=== PATIENT | male | born 1960 | race Caucasian/White ===

== ENCOUNTER 2020-03-27 13:04 | Emergency (ER) | payer BC, SELFPAY ==
--- NOTE | ~2020-03-27 | XR_ITS ---
EXAMINATION: XR finger 1st LT min 2V DATE: 03/27/2020 13:29 INDICATION: Left thumb crush injury. TECHNIQUE: 3 views of left thumb were obtained. COMPARISON: None. FINDINGS: There is an oblique fracture of tuft of first distal phalanx with 1 mm distraction. There i s mild osteoarthritis of first metacarpophalangeal joint and moderate osteoarthritis of first interph alangeal joint. IMPRESSION: 1. Oblique fracture of tuft of first distal phalanx. Reviewed, dictated and finalized at location A.
[2020-03-27 13:16] VITALS: BP 166/96; PULSE 82; RESP 17; TEMP 35.9; O2SAT 99
--- NOTE | 2020-03-27 13:38 | ED.GENADULT ---
HPI - General Adult General Chief complaint: Wound/Laceration Stated complaint: smashed finger Time Seen by Provider: 03/27/20 13:18 Source: patient Mode of arrival: ambulatory Limitations: no limitations History of Present Illness HPI narrative: Patient is a 60-year-old male who presents to emergency department for evaluation of crush injury of the left thumb that occurred just prior to arrival using a log splitter patient caught the distal phalanx sustaining laceration of the nail read as moderate aching pain worse with touch and activity patient denies other injuries or complaints patient is unsure as to tetanus status patient presents per private vehicle after the incident no distress has not had anything for his symptoms Related Data Allergies Allergy/AdvReac Type Severity Reaction Status Date / Time amlodipine Allergy Unknown Swelling Verified 02/21/19 16:00 metoclopramide Allergy Unknown Verified 02/21/19 16:00 Review of Systems Review of Systems: All systems reviewed & are unremarkable except as noted in HPI and below PMFSH Past Medical History Medical History Hammertoe of left foot Family History Family History Father Patient's father is Family history of cardiovascular disease Family history of lung cancer Family history of congestive heart failure Mother Patient's mother is Family history of malignant neoplasm of esophagus Sibling Patient's brother is Family history of malignant neoplasm of male breast Other Family history of alcoholism Hypertension No family history of malignant neoplasm Social History Social History Smoking status: Never smoker Smoking end date: 06/15/92 Alcohol intake: current Gender identity (if verbalized by the patient): Male Exam Narrative: Exam Narrative: GENERAL: Well-appearing, well-nourished, and in no acute distress. HEAD: Normocephalic, atraumatic. EYES: PERRLA and EOMI. ENT: Nares clear, no rhinorrhea or epistaxis. Mucous membranes moist. EXTREMITIES: Normal range of motion. No edema. SKIN: Warm, dry, no rash. Laceration across the mid left nailbed of the thumb with bruising NEURO: No focal deficits. Alert and oriented x3. Neurovascularly intact. Capillary refill less than 2 seconds PSYCH: Normal mood and affect. Course Course Emergency Course: Patient's wound was closed in the emergency department tetanus was up-to-date he was given a shot of antibiotic will be discharged with follow-up with plastic surgery Vital Signs Vital signs: Vital Signs Temperature 96.7 F L 03/27/20 13:16 Pulse Rate 82 03/27/20 13:16 Respiratory Rate 17 03/27/20 13:16 Blood Pressure 166/96 H 03/27/20 13:16 Pulse Oximetry 99 03/27/20 13:16 Temperature 96.7 F L 03/27/20 13:16 Pulse Rate 82 03/27/20 13:16 Respiratory Rate 17 03/27/20 13:16 Blood Pressure 166/96 H 03/27/20 13:16 Pulse Oximetry 99 03/27/20 13:16 Procedures Laceration Laceration 1: Date: 03/27/20 Time: 14:47 Site: upper extremity Side (If applicable): left Size (cm): 2 Description: irregular Depth: simple, single layer Local Anesthetic: lidocaine 1% Pre-repair: wound explored, irrigated and irrigated extensively ====== Skin Level ====== Skin layer closed with: nylon Size (cm): 4-0 Number of sutures: 4 Technique: simple, interrupted ====== Subcutaneous Layer ====== ====== Muscle Layer ====== ====== Tendon Layer ====== Dressing: Patient's wound was prepped with [employer]icare scrub 1% lidocaine used to make digital block patient's wound was explored and irrigated with pressure irrigation along with scrub. Patient had closure with 4-0 nylon the nailbed was repare
[2020-03-27] MEDS: LIDOCAINE HCL 1% LOCAL INJ 20 ML VIAL (14:01)
[2020-03-27] MEDS: TETANUS,DIPHTHERIA,AC PERTUSSIS ADULT (0.5 ML) BOOSTRIX IM (14:02)
[2020-03-27] MEDS: ceFAZolin SODIUM 1 GM VIAL IM (14:02)
[2020-03-27 15:10] VITALS: BP 117/59; PULSE 75; RESP 16; O2SAT 100
== END 2020-03-27 15:10 | disposition home or self-care (01) ==
PROVIDERS: Emergency Provider Emergency Medicine; PCP Family Medicine
DX: S62.522B Displaced fracture of distal phalanx of left thumb, initial encounter for open fracture (principal); W30.89XA Contact with other specified agricultural machinery, initial encounter; Z23 Encounter for immunization
CPT/HCPCS: 12001; 73140; 90471; 90715; 96372; 99283; J0690

== ENCOUNTER → 2020-09-10 01:52 | Outpatient (CLI) | payer BC, SELFPAY ==
[2020-09-10 20:12] LABS: SARS-CoV-2 RNA PCR Negative
== END ==
PROVIDERS: PCP Family Medicine; Visit Provider Internal Medicine Gastroenterology
DX: Z01.812 Encounter for preprocedural laboratory examination (principal); Z20.822 Contact with and (suspected) exposure to COVID-19
CPT/HCPCS: C9803; U0003; U0005

== ENCOUNTER 2020-09-13 01:32 | Day surgery (SDC) | payer BC, SELFPAY ==
[2020-08-30 13:05] VITALS: BMI 29.7
[2020-09-13] MEDS: LACTATED RINGERS 1,000 ML 150 ML IV CONT (07:23)
[2020-09-13 07:27] VITALS: BP 135/88; PULSE 64; RESP 16; TEMP 36.6; O2SAT 98; BMI 29.9
--- NOTE | 2020-09-13 07:29 | PM.HPGS ---
History of Present Illness History of Present Illness Consent: Risks, benefits, and alternatives have been discussed and questions answered. Patient agrees to proceed with procedure. Chief complaint: Neoplasm Screening Narrative: Toni Mazariegos is a 60 year old male referred for colon cancer screening. He had 2 polyps removed 6 years ago Review of Systems Review of Systems: All systems reviewed & are unremarkable except as noted in HPI and below PMFSH Past Medical History Medical History Colon polyps Hammertoe of left foot Obesity (BMI 30.0-34.9) Family History Family History Father Patient's father is Family history of cardiovascular disease Family history of lung cancer Family history of congestive heart failure Mother Patient's mother is Family history of malignant neoplasm of esophagus Sibling Patient's brother is Family history of malignant neoplasm of male breast Other Family history of alcoholism Hypertension No family history of malignant neoplasm Social History Social History Smoking packs per day: 1 Smoking cigarettes per day: 20.0 Years smoked: 10 Smoking pack-years: 10.00 Smoking status: Former smoker Tobacco type: cigarettes Smoking end date: 06/15/92 Alcohol intake: current Drinks per week: 21 Living arrangements: with family Gender identity (if verbalized by the patient): Male Spiritual care concerns: No Meds Home Medications and Allergies Home Medications Medication Instructions Recorded Confirmed Type telmisartan 80 mg tablet 80 mg PO DAILY #90 tablet 06/18/20 08/30/20 Rx sertraline 50 mg tablet 50 mg PO DAILY #90 tablet 08/29/20 08/30/20 Rx trazodone 100 mg PO DAILY PRN 08/30/20 08/30/20 History sod picosulf 10 mg-magnes 3.5 160 ml PO BID #160 ml 09/11/20 Rx gram-citric 12 gram/160 mL oral solution Allergies Allergy/AdvReac Type Severity Reaction Status Date / Time amlodipine Allergy Unknown Swelling Verified 09/13/20 07:13 metoclopramide Allergy Unknown Anxiety Verified 09/13/20 07:13 Exam Resp: Auscultation: clear to auscultation bilaterally Cardio: Rate: regular rate Rhythm: regular rhythm GI: GI Palp: Yes Soft to palpation and No Tenderness to palpation present (GI) Assessment and Plan Assessment and plan (1) Colon cancer screening: Code(s): Z12.11 - Encounter for screening for malignant neoplasm of colon Status: Acute Assessment and Plan: Colonoscopy with possible biopsy or polypectomy or cautery or injection of substances.
--- NOTE | 2020-09-13 07:32 | WPDANESEPPF ---
Anes - Initial Pre Proc Eval Procedure: Operation Date: 09/13/20 08:30 Proposed Procedures p Screening Colonoscopy - Edward Sheppard MD Date/Time: 09/13/20 07:32 Surgeon: Edward Sheppard MD Pre Op Diagnosis: Neoplasm Screening Patient Data Age: 60 Gender: M Height: 1.93 m Weight: 111.5 kg Last Vital Signs Temp 36.6 C 09/13/20 07:27 Pulse 64 09/13/20 07:27 Resp 16 09/13/20 07:27 BP 135/88 09/13/20 07:27 Pulse Ox 98 09/13/20 07:27 Allergies Allergy/AdvReac Type Severity Reaction Status Date / Time amlodipine Allergy Unknown Swelling Verified 09/13/20 07:13 metoclopramide Allergy Unknown Anxiety Verified 09/13/20 07:13 Home Medications Medication Instructions Recorded Confirmed Type telmisartan 80 mg tablet 80 mg PO DAILY #90 tablet 06/18/20 08/30/20 Rx sertraline 50 mg tablet 50 mg PO DAILY #90 tablet 08/29/20 08/30/20 Rx trazodone 100 mg PO DAILY PRN 08/30/20 08/30/20 History sod picosulf 10 mg-magnes 3.5 160 ml PO BID #160 ml 09/11/20 Rx gram-citric 12 gram/160 mL oral solution Patient hx anesthesia problems: none Family hx anesthesia problems: none PMFSH Past Medical History Medical History (Updated 09/13/20 @ 07:33 by Fareed Vivas MD) Adjustment disorder with anxious mood Colon polyps Essential (primary) hypertension Hammertoe of left foot Moderate persistent reactive airway disease with wheezing without complication Obesity (BMI 30.0-34.9) Obstructive sleep apnea Family History Family History Father Patient's father is Family history of cardiovascular disease Family history of lung cancer Family history of congestive heart failure Mother Patient's mother is Family history of malignant neoplasm of esophagus Sibling Patient's brother is Family history of malignant neoplasm of male breast Other Family history of alcoholism Hypertension No family history of malignant neoplasm Social History Social History Smoking packs per day: 1 Smoking cigarettes per day: 20.0 Years smoked: 10 Smoking pack-years: 10.00 Smoking status: Former smoker Tobacco type: cigarettes Smoking end date: 06/15/92 Alcohol intake: current Drinks per week: 21 Living arrangements: with family Gender identity (if verbalized by the patient): Male Spiritual care concerns: No Anes - Eval Final PreProcedure Day of Procedure 09/13/20 07:32 Patient weight: obese Heart: regular rate and rhythm Lungs: clear to auscultation and normal air movement Airway: Mallampati scale class II Neurological: alert and oriented Last oral intake: >/= 8 hours ASA classification: III Emergent: no Anesthetic plan: proceed Anesthesia type and monitoring: general GIVS Informed Consent: The patient's anesthetic plan and its attendant risks and benefits were discussed with the patient/family/POA. Questions were solicited and answers provided to the satisfaction of the patient/family/POA.
[2020-09-13] MEDS: SIMETHICONE ORAL SUSPENSION 20 MG/0.3 ML 30 ML BOTTLE 0.6 ML IRRIGATION (08:34)
[2020-09-13 08:42] VITALS: BP 119/83; PULSE 57; RESP 20; O2SAT 98
[2020-09-13 08:52] VITALS: BP 126/88; PULSE 60; RESP 22; O2SAT 99
[2020-09-13 09:02] VITALS: BP 140/90; PULSE 50; RESP 13; O2SAT 100
== END 2020-09-13 09:12 | disposition home or self-care (01) ==
PROVIDERS: PCP Family Medicine; Visit Provider Internal Medicine Gastroenterology
PROC: 0DJD8ZZ Inspection of Lower Intestinal Tract, Via Natural or Artificial Opening Endoscopic (ICD-10-PCS; CPT 45378; principal; 2020-09-13 08:30)
DX: Z12.11 Encounter for screening for malignant neoplasm of colon (principal); K63.5 Polyp of colon; K57.30 Diverticulosis of large intestine without perforation or abscess without bleeding; F43.22 Adjustment disorder with anxiety; J45.40 Moderate persistent asthma, uncomplicated; G47.33 Obstructive sleep apnea (adult) (pediatric); I10 Essential (primary) hypertension; E66.9 Obesity, unspecified; Z68.29 Body mass index [BMI] 29.0-29.9, adult; Z87.891 Personal history of nicotine dependence
CPT/HCPCS: 45385; 88305; C9803; J2704; J7120; U0003; U0005

== ENCOUNTER 2021-11-24 18:20 | Emergency (ER) | payer BC, SELFPAY ==
[2021-11-24 18:22] VITALS: BP 145/89; PULSE 77; RESP 18; TEMP 36.7; O2SAT 99
--- NOTE | 2021-11-24 18:42 | ED.WOUNDLAC ---
HPI - Wound/Laceration General Chief Complaint: Wound/Laceration Stated Complaint: R 5TH DIGIT LAC Time Seen by Provider: 11/24/21 18:27 History of Present Illness HPI narrative: 61-year-old male presents the emergency room for evaluation of a laceration to his right fifth finger. Patient states he was throwing a piece of wood away part of it broke off cutting the back of his finger. Patient states that he was seen at 2 different urgent cares earlier today, and was told that neither facility would repair his finger. Tetanus is up-to-date Related Data Allergies Allergy/AdvReac Type Severity Reaction Status Date / Time amlodipine Allergy Unknown Swelling Verified 11/24/21 18:25 metoclopramide Allergy Unknown Anxiety Verified 11/24/21 18:25 Review of Systems Review of Systems: CONSTITUTIONAL: Denies fever, chills, or sweats. EYES: Denies visual changes, redness, or discharge. ENT: Denies rhinorrhea, congestion, sore throat, or otalgia. CARDIOVASCULAR: Denies chest pain, palpitations, or edema. RESPIRATORY: Denies cough or dyspnea. GASTROINTESTINAL: Denies abdominal pain, nausea, vomiting, or diarrhea. GENITOURINARY: Denies dysuria or hematuria. SKIN: Reports laceration right fifth digit MUSCULOSKELETAL: Denies back pain, joint pain, or myalgia. NEUROLOGIC: Denies headache, numbness, dizziness, or weakness. PSYCHIATRIC: Denies anxiety or depression. [facility] Past Medical History Medical History Adjustment disorder with anxious mood Bunion Colon polyps Essential (primary) hypertension Hammertoe of left foot Moderate persistent reactive airway disease with wheezing without complication Obesity (BMI 30.0-34.9) Obstructive sleep apnea Surgical History Surgical History History of bunionectomy of left great toe Family History Family History Father Patient's father is Family history of cardiovascular disease Family history of lung cancer Family history of congestive heart failure Mother Patient's mother is Family history of malignant neoplasm of esophagus Sibling Patient's brother is Family history of malignant neoplasm of male breast Other Family history of alcoholism Hypertension No family history of malignant neoplasm Social History Social History Smoking packs per day: 1 Smoking cigarettes per day: 20.0 Years smoked: 10 Smoking pack-years: 10.00 Tobacco type: cigarettes Smoking end date: 06/15/92 Alcohol intake: current Drinks per week: 21 Gender identity (if verbalized by the patient): Male Spiritual care concerns: No Exam Narrative: GENERAL: Well-appearing, well-nourished, and in no acute distress. HEAD: Normocephalic, atraumatic. EYES: PERRLA and EOMI. CHEST: Clear to auscultation. No respiratory distress. No wheezes rales or rhonchi HEART: Regular rate and rhythm. No murmur heard. Normal peripheral pulses. EXTREMITIES: Normal range of motion. No edema. Right fifth digit: The MCP, PIP, and DIP joints; neurovascular is intact distally SKIN: Right fifth digit: U-shaped laceration dorsal side of the right fifth digit NEURO: No focal deficits. Alert and oriented x3. PSYCH: Normal mood and affect. Course Vital Signs Vital signs: Vital Signs Temperature 36.7 C 11/24/21 18:22 Pulse Rate 77 11/24/21 18:22 Respiratory Rate 18 11/24/21 18:22 Blood Pressure 145/89 H 11/24/21 18:22 Pulse Oximetry 99 11/24/21 18:22 Oxygen Delivery Room Air 11/24/21 18:22 Temperature 36.7 C 11/24/21 18:22 Pulse Rate 77 11/24/21 18:22 Respiratory Rate 18 11/24/21 18:22 Blood Pressure 145/89 H 11/24/21 18:22 Pulse Oximetry 99 11/24/21 18:22 Oxygen Delivery Room Air 11/24/21 18:22 Procedures Laceration L
== END 2021-11-24 19:45 | disposition home or self-care (01) ==
PROVIDERS: Emergency Provider Nurse Practitioner Family; PCP Family Medicine
DX: S61.216A Laceration without foreign body of right little finger without damage to nail, initial encounter (principal); I10 Essential (primary) hypertension; J45.40 Moderate persistent asthma, uncomplicated; G47.33 Obstructive sleep apnea (adult) (pediatric); E66.9 Obesity, unspecified; Z68.29 Body mass index [BMI] 29.0-29.9, adult; Z86.010 Personal history of colon polyps; Z87.891 Personal history of nicotine dependence; W26.8XXA Contact with other sharp object(s), not elsewhere classified, initial encounter
CPT/HCPCS: 12001; 99283

== ENCOUNTER 2022-09-16 08:35 | Outpatient (CLI) | payer BC, SELFPAY ==
--- NOTE | 2022-09-16 08:39 | EST_ITS ---
Patient Info Name: Toni Mazariegos Age: 62 years : 1960 Gender: Male Ht: 76 in Wt: 250 lbs BSA: 2.49 m2 HR: 63 bpm BP: 132 / 90 mmHg Heart Rhythm: Sinus Rhythm Technical Quality: Good Exam Date: 09/16/2022 9:05 AM Exam Location: [facility] Patient Status: Outpatient Admit Date: 09/16/2022 Staff Ordering Physician: Jamarcus Varner MD Fruit Thinner: Stephy Paulino RDCS Attending Provider: DR. MORENO Referring Physician: Telly GARCIA; Exam Type: CA stress echo Study Info Indications - MCKNIGHT Treadmill exercise stress echocardiogram is performed. Summary 1. 1. Negative Ubaldo exercise stress test for ischemic ST changes by ECG criteria. 2. 2. Good functional capacity, achieving 10 METs of workload. 3. 3. Hypertensive response to exercise. 4. 4. Appropriate HR response to exercise. 5. 5. Appropriate HR recovery at 1 minute post exercise. 6. 6. Negative stress echocardiogram for ischemia by wall motion analysis. 7. 7. Patient informed of the above results. Stress Echo Findings Left Ventricle Appropriate increase in LV endocardial thickening with systole. Appropriate augmentation of contractility with systole. No wall motion abnormality. Left Ventricle Normal LV systolic function, no wall motion abnormality. Protocol: Ubaldo Stress ECG Details Stage: REST Duration (min): 1 min : 14 sec Speed (mph): 0.0 Grade (%): 0 HR (bpm): 63 SBP (mmHg): 132 DBP (mmHg): 90 METS: --- Stage: REST Duration (min): 22 min : 16 sec Speed (mph): 0.0 Grade (%): 0 HR (bpm): 67 SBP (mmHg): 132 DBP (mmHg): 90 METS: --- Stage: STAGE 1 Duration (min): 1 min : 0 sec Speed (mph): 1.7 Grade (%): 10 HR (bpm): 105 SBP (mmHg): 132 DBP (mmHg): 90 METS: --- Stage: STAGE 1 Duration (min): 2 min : 0 sec Speed (mph): 1.7 Grade (%): 10 HR (bpm): 112 SBP (mmHg): 132 DBP (mmHg): 90 METS: --- Stage: STAGE 1 Duration (min): 3 min : 0 sec Speed (mph): 1.7 Grade (%): 10 HR (bpm): 114 SBP (mmHg): 179 DBP (mmHg): 86 METS: --- Stage: STAGE 2 Duration (min): 1 min : 0 sec Speed (mph): 2.5 Grade (%): 12 HR (bpm): 122 SBP (mmHg): 179 DBP (mmHg): 86 METS: --- Stage: STAGE 2 Duration (min): 2 min : 0 sec Speed (mph): 2.5 Grade (%): 12 HR (bpm): 129 SBP (mmHg): 193 DBP (mmHg): 84 METS: --- Stage: STAGE 2 Duration (min): 3 min : 0 sec Speed (mph): 2.5 Grade (%): 12 HR (bpm): 132 SBP (mmHg): 193 DBP (mmHg): 84 METS: --- Stage: STAGE 3 Duration (min): 1 min : 0 sec Speed (mph): 3.4 Grade (%): 14 HR (bpm): 142 SBP (mmHg): 210 DBP (mmHg): 83 METS: --- Stage: STAGE 3 Duration (min): 2 min : 0 sec Speed (mph): 3.4 Grade (%): 14 HR (bpm): 145 SBP (mmHg): 210 DBP (mmHg): 83 METS: --- Stage: STAGE 3 Duration (min): 2 min : 1 sec
== END 2022-09-16 08:36 | disposition home or self-care (01) ==
LOC: ANHCARD 08:37
PROVIDERS: PCP Family Medicine; Visit Provider Family Medicine
DX: R06.09 Other forms of dyspnea (principal)
CPT/HCPCS: 93351

== ENCOUNTER 2022-09-30 09:00 | Outpatient (NON) | payer BC, SELFPAY | END 2022-09-30 09:01 | disposition home or self-care (01) | LOC: ANHLAB 10-01 12:07 | PROVIDERS: PCP Family Medicine; Visit Provider Nurse Practitioner | DX: D23.61 Other benign neoplasm of skin of right upper limb, including shoulder (principal) | CPT/HCPCS: 88305 ==

== ENCOUNTER 2022-10-28 08:00 | Outpatient (NON) | payer BC, SELFPAY | END 2022-10-28 08:01 | disposition home or self-care (01) | LOC: ANHLAB 10-29 11:18 | PROVIDERS: PCP Family Medicine; Visit Provider Nurse Practitioner | DX: C43.61 Malignant melanoma of right upper limb, including shoulder (principal) | CPT/HCPCS: 88305 ==

== ENCOUNTER 2022-11-05 13:58 | Outpatient (NON) | payer BC, SELFPAY | END 2022-11-05 13:59 | disposition home or self-care (01) | LOC: ANHLAB 11-07 14:00 | PROVIDERS: PCP Family Medicine; Visit Provider Surgery Plastic and Reconstructive Surgery | DX: C43.61 Malignant melanoma of right upper limb, including shoulder (principal) | CPT/HCPCS: 88305; 88342 ==

== ENCOUNTER 2022-11-06 17:23 | Emergency (ER) | payer BC, SELFPAY ==
[2022-11-06 17:33] VITALS: BP 111/96; PULSE 88; RESP 16; TEMP 37.7; O2SAT 100
[2022-11-06 17:34] VITALS: BP 111/96; PULSE 88; RESP 16; TEMP 37.7; O2SAT 100
--- NOTE | 2022-11-06 17:53 | ED.URI ---
HPI - URI/Sore Throat General Chief Complaint: Upper Respiratory Infection Stated Complaint: drainage; sore throat; hoarseness Source: patient and RN notes reviewed History of Present Illness HPI Narrative: 62-year-old male presents to urgent care with complaint runny nose, congestion, and slight cough. Patient states his symptoms have been going on since Thursday. denies any fevers, chills chest pain, shortness of breath, or vomiting. Patient has been taking [id number] cough medication with good relief. Related Data Allergies Allergy/AdvReac Type Severity Reaction Status Date / Time amlodipine Allergy Severe Swelling Verified 11/06/22 17:33 metoclopramide AdvReac Intermediate Anxiety Verified 11/06/22 17:33 Review of Systems Review of Systems: Pertinent positives and pertinent negatives per HPI. [facility] Past Medical History Medical History (Updated 11/06/22 @ 18:07 by Irena Baldwin, SHAUN) Adjustment disorder with anxious mood Bunion Colon polyps Essential (primary) hypertension Hammertoe of left foot Malignant melanoma Moderate persistent reactive airway disease with wheezing without complication Obesity (BMI 30.0-34.9) Obstructive sleep apnea Surgical History Surgical History History of bunionectomy of left great toe Family History Family History Father Patient's father is Family history of cardiovascular disease Family history of lung cancer Family history of congestive heart failure Mother Patient's mother is Family history of malignant neoplasm of esophagus Sibling Patient's brother is Family history of malignant neoplasm of male breast Other Family history of alcoholism Hypertension No family history of malignant neoplasm Social History Social History Smoking packs per day: 1 Smoking cigarettes per day: 20.0 Years smoked: 10 Smoking pack-years: 10.00 Smoking status: Never smoker Tobacco type: cigarettes Smoking end date: 06/15/92 Alcohol intake: current Drinks per week: 21 Lack of Transportation: No Lack of Food: Never True Current Housing: I Have Housing Concerned About Future Housing: No Difficulty Paying Gas/Electric Bills: No Difficulty Paying for Meds: No Currently Unemployed: No Education: Master's Degree or Higher Difficulty w/ Childcare or Family Care: No Living arrangements: with family Gender identity (if verbalized by the patient): Male Spiritual care concerns: No Comments At the time of my signature, I reviewed and agree with the nursing past medical, surgical, social, and family history. There is no relevant family history pertinent to the patient complaint. Exam Narrative: GENERAL: This is a well-nourished, well-developed patient, in no apparent distress. HEAD: normocephalic, atraumatic. EYES: PERRL. Sclera clear/white. Vision is grossly intact. EARS: External ears normal, auditory canals clear and without drainage, TMs normal without perforation. Hearing grossly intact. NOSE: External nose normal with no obvious nasal discharge, nares without redness, no rhinorrhea. THROAT: Mucous membranes moist, posterior pharynx clear. NECK: Neck supple, non-tender without lymphadenopathy, masses or thyromegaly. CARDIOVASCULAR: Regular rate and rhythm without murmurs, gallops, or rubs. RESPIRATORY: Clear to auscultation. Breath sounds equal bilaterally. No wheezes, rales, or rhonchi. GASTROINTESTINAL: Abdomen soft, non-tender, nondistended. Bowel sounds are active. No hepato-splenomegaly, or palpable masses. No guarding. SKIN: warm, intact with no suspicious lesions or rash, good texture and turgor. NEURO: awake, alert, and oriented to person, place and time. There were no obvious focal neurologic abnormalities. EXTREMITIES: No clubbing, c
== END 2022-11-06 18:16 | disposition home or self-care (01) ==
PROVIDERS: Emergency Provider Nurse Practitioner Family; PCP Family Medicine
DX: J06.9 Acute upper respiratory infection, unspecified (principal); Z87.891 Personal history of nicotine dependence; I10 Essential (primary) hypertension; E66.9 Obesity, unspecified; Z68.29 Body mass index [BMI] 29.0-29.9, adult; Z85.820 Personal history of malignant melanoma of skin
CPT/HCPCS: 87081; 87880; 99213; G0463

== ENCOUNTER 2022-12-17 13:33 | Emergency (ER) | payer BC, SELFPAY ==
--- NOTE | ~2022-12-17 | XR_ITS ---
EXAMINATION: XR chest 2V DATE: 12/17/2022 14:14 INDICATION: Productive cough, congestion and wheezing TECHNIQUE: frontal and lateral views of the chest were obtained. COMPARISON: Chest radiograph dated 07/16/2018 FINDINGS: Air-fluid levels within a large hiatal hernia. No airspace opacities, pulmonary edema, pleural effusi on or pneumothorax. Heart size is normal. Bones are unremarkable. IMPRESSION: 1. No acute cardiopulmonary disease. 2. Large hiatal hernia. Reviewed, dictated and finalized at location B.
[2022-12-17 13:43] VITALS: BP 136/76; PULSE 88; RESP 16; TEMP 36.9; O2SAT 99
--- NOTE | 2022-12-17 14:05 | ED.URI ---
HPI - URI/Sore Throat General Chief Complaint: Upper Respiratory Infection Stated Complaint: Cough Time Seen by Provider: 12/17/22 13:57 Source: patient and RN notes reviewed Mode of arrival: ambulatory Limitations: no limitations History of Present Illness HPI Narrative: Patient presents today complaining of 1 month history of cough, congestion, postnasal drip. 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 Over the past month he has tried Robitussin DM Elsa, which were initially very helpful, but over the last 4-5 days he did not find them helpful. He has also tried an albuterol inhaler without much relief. Denies history of asthma or COPD. He is a nonsmoker. Related Data Allergies Allergy/AdvReac Type Severity Reaction Status Date / Time amlodipine Allergy Severe Swelling Verified 11/06/22 17:33 metoclopramide AdvReac Intermediate Anxiety Verified 11/06/22 17:33 Review of Systems Review of Systems: CONSTITUTIONAL: Denies body aches, fever, chills, or sweats. EYES: Denies visual changes, redness, or discharge. ENT: Denies rhinorrhea, sore throat, or otalgia.+ congestion, postnasal drip CARDIOVASCULAR: Denies chest pain, palpitations, or edema. RESPIRATORY: + cough, shortness of breath, wheezing GASTROINTESTINAL: Denies abdominal pain, nausea, vomiting, or diarrhea. GENITOURINARY: Denies dysuria or hematuria. SKIN: Denies rash, itching, or wounds. MUSCULOSKELETAL: Denies back pain, joint pain, or myalgia. NEUROLOGIC: Denies headache, numbness, tingling, or weakness. PSYCH: Denies depression or anxiety. [facility] Past Medical History Medical History Adjustment disorder with anxious mood Bunion Colon polyps Essential (primary) hypertension Hammertoe of left foot Malignant melanoma Moderate persistent reactive airway disease with wheezing without complication Obesity (BMI 30.0-34.9) Obstructive sleep apnea Surgical History Surgical History History of bunionectomy of left great toe Family History Family History Father Patient's father is Family history of cardiovascular disease Family history of lung cancer Family history of congestive heart failure Mother Patient's mother is Family history of malignant neoplasm of esophagus Sibling Patient's brother is Family history of malignant neoplasm of male breast Other Family history of alcoholism Hypertension No family history of malignant neoplasm Social History Social History Smoking packs per day: 1 Smoking cigarettes per day: 20.0 Years smoked: 10 Smoking pack-years: 10.00 Smoking status: Never smoker Tobacco type: cigarettes Smoking end date: 06/15/92 Alcohol intake: current Drinks per week: 21 Lack of Transportation: No Lack of Food: Never True Current Housing: I Have Housing Concerned About Future Housing: No Difficulty Paying Gas/Electric Bills: No Difficulty Paying for Meds: No Currently Unemployed: No Education: Master's Degree or Higher Difficulty w/ Childcare or Family Care: No Living arrangements: with family Gender identity (if verbalized by the patient): Male Spiritual care concerns: No Comments At time of signature, I have reviewed and agree with nursing past medical, surgical, social and family history unless otherwise noted. Please see nursing chart for further information. There is no relevant family history pertinent to the presenting complaint Exam Narrative: GENERAL: feel-appearing, well-nourished, and in no acute distress. HEAD: Normocephalic, atraumatic. EYES: EOMI. No redness or drainage. Conjun
== END 2022-12-17 14:35 | disposition home or self-care (01) ==
PROVIDERS: Emergency Provider Nurse Practitioner; PCP Family Medicine
DX: J32.9 Chronic sinusitis, unspecified (principal); J40 Bronchitis, not specified as acute or chronic; Z87.891 Personal history of nicotine dependence; I10 Essential (primary) hypertension; J45.909 Unspecified asthma, uncomplicated; E66.9 Obesity, unspecified; Z68.29 Body mass index [BMI] 29.0-29.9, adult
CPT/HCPCS: 71046; 99213; G0463

== ENCOUNTER 2024-03-25 13:18 | Emergency (ER) | payer MEDICARE, OTHER, SELFPAY ==
[2024-03-25 13:27] VITALS: BP 155/89; PULSE 56; RESP 19; TEMP 36.8; O2SAT 99
--- NOTE | 2024-03-25 14:02 | ED.URI ---
HPI - URI/Sore Throat General Chief Complaint: Upper Respiratory Infection Stated Complaint: Sore Throat Time Seen by Provider: 03/25/24 14:02 Source: patient, RN notes reviewed and old records reviewed Mode of arrival: ambulatory Limitations: no limitations History of Present Illness HPI Narrative: 64-year-old male presents to the [facility] with complaints of a sore throat since yesterday. Had exposures to 3 given children last week that had strep. No treatment prior to arrival Related Data Home Medications Medication Instructions Recorded Confirmed omeprazole 40 mg capsule,delayed 40 mg PO DAILY 07/01/23 03/25/24 release Allergies Allergy/AdvReac Type Severity Reaction Status Date / Time amlodipine Allergy Severe Swelling Verified 03/25/24 13:19 metoclopramide AdvReac Intermediate Anxiety Verified 03/25/24 13:19 Review of Systems Review of Systems: All systems reviewed & are unremarkable except as noted in HPI and below Constitutional: Constitutional: Reports no additional constitutional complaints Eyes: Eyes: Reports no additional eye complaints ENT: Reports as per HPI, Reports sore throat and Denies throat swelling Cardiovascular: Cardiovascular: Reports no additional cardiovascular complaints, Denies chest pain and Denies dyspnea Respiratory: Respiratory: Reports no additional respiratory complaints, Denies chest congestion, Denies cough and Denies dyspnea Gastrointestinal: Gastrointestinal: Reports no additional gastrointestinal complaints, Denies abdominal pain, Denies nausea and Denies vomiting Musculoskeletal: Musculoskeletal: Reports no additional musculoskeletal complaints Integumentary/Breasts: Skin/Breast: Reports system reviewed and no additional complaints, except as docu Neurologic: Reports system reviewed and no additional complaints, except as documented Psychiatric: Psychiatric: Reports no additional psychiatric complaints Allergic/Immunologic: Allergic/Immunologic: Reports no additional allergic/immunologic complaints [facility] Past Medical History Medical History Adjustment disorder with anxious mood Bunion Colon polyps Essential (primary) hypertension Hammertoe of left foot Malignant melanoma Moderate persistent reactive airway disease with wheezing without complication Obesity (BMI 30.0-34.9) Obstructive sleep apnea Surgical History Surgical History H/O sinus surgery History of bunionectomy of left great toe History of fundoplication S/P laparoscopic hernia repair S/P repair of paraesophageal hernia Family History Family History Father Patient's father is Family history of cardiovascular disease Family history of lung cancer Family history of congestive heart failure Mother Patient's mother is Family history of malignant neoplasm of esophagus Sibling Patient's brother is Family history of malignant neoplasm of male breast Other Family history of alcoholism Hypertension No family history of malignant neoplasm Social History Social History Smoking packs per day: 1 Smoking cigarettes per day: 20.0 Years smoked: 10 Smoking pack-years: 10.00 Smoking status: Never smoker Tobacco type: cigarettes Smoking end date: 06/15/92 Alcohol intake: current Drinks per week: 21 Lack of Transportation: No Lack of Food: Never True Current Housing: I Have Housing Concerned About Future Housing: No Difficulty Paying Gas/Electric Bills: No Difficulty Paying for Meds: No Currently Unemployed: No Education: Master's Degree or Higher Difficulty w/ Childcare or Family Care: No Living arrangements: with family Gender identity (if verbalized by the patient): Male Spiritual care concerns: No
[2024-03-25 14:25] LABS: EDSTREPNEGPOS1 Negative (Negative)
== END 2024-03-25 14:25 | disposition home or self-care (01) ==
PROVIDERS: Emergency Provider Nurse Practitioner; PCP Family Medicine
DX: J02.9 Acute pharyngitis, unspecified (principal); Z87.891 Personal history of nicotine dependence; I10 Essential (primary) hypertension; J45.909 Unspecified asthma, uncomplicated; E66.9 Obesity, unspecified; Z68.29 Body mass index [BMI] 29.0-29.9, adult; Z85.820 Personal history of malignant melanoma of skin
CPT/HCPCS: 87081; 87880; 99213; G0463

== ENCOUNTER 2024-03-26 15:20 | Emergency (ER) | payer MEDICARE, OTHER, SELFPAY ==
[2024-03-26 15:52] VITALS: BP 145/88; PULSE 77; RESP 18; TEMP 36.4; O2SAT 99
[2024-03-26 16:55] VITALS: BP 148/93; PULSE 83; RESP 20; O2SAT 100
--- NOTE | 2024-03-26 19:26 | ED.WOUNDLAC ---
HPI - Wound/Laceration General Chief Complaint: Wound/Laceration Stated Complaint: arm laceration Time Seen by Provider: 03/26/24 16:05 History of Present Illness HPI narrative: Patient accidentally cut his arm with a chainsaw. did clean it off at home. Tetanus is up-to-date. Related Data Home Medications Medication Instructions Recorded Confirmed omeprazole 40 mg capsule,delayed 40 mg PO DAILY 07/01/23 03/25/24 release Allergies Allergy/AdvReac Type Severity Reaction Status Date / Time amlodipine Allergy Severe Swelling Verified 03/26/24 15:55 metoclopramide AdvReac Intermediate Anxiety Verified 03/26/24 15:55 Review of Systems Review of Systems: All systems reviewed & are unremarkable except as noted in HPI and below PMFSH Past Medical History Medical History Adjustment disorder with anxious mood Bunion Colon polyps Essential (primary) hypertension Hammertoe of left foot Malignant melanoma Moderate persistent reactive airway disease with wheezing without complication Obesity (BMI 30.0-34.9) Obstructive sleep apnea Surgical History Surgical History H/O sinus surgery History of bunionectomy of left great toe History of fundoplication S/P laparoscopic hernia repair S/P repair of paraesophageal hernia Family History Family History Father Patient's father is Family history of cardiovascular disease Family history of lung cancer Family history of congestive heart failure Mother Patient's mother is Family history of malignant neoplasm of esophagus Sibling Patient's brother is Family history of malignant neoplasm of male breast Other Family history of alcoholism Hypertension No family history of malignant neoplasm Social History Social History Smoking packs per day: 1 Smoking cigarettes per day: 20.0 Years smoked: 10 Smoking pack-years: 10.00 Smoking status: Never smoker Tobacco type: cigarettes Smoking end date: 06/15/92 Alcohol intake: current Drinks per week: 21 Lack of Transportation: No Lack of Food: Never True Current Housing: I Have Housing Concerned About Future Housing: No Difficulty Paying Gas/Electric Bills: No Difficulty Paying for Meds: No Currently Unemployed: No Education: Master's Degree or Higher Difficulty w/ Childcare or Family Care: No Living arrangements: with family Gender identity (if verbalized by the patient): Male Spiritual care concerns: No Exam Narrative: EXAMINATION OF ORGAN SYSTEMS/BODY AREAS: Constitutional: Vital signs per nursing GENERAL:[No acute distress, non-toxic appearing.] HEAD: Normal with no signs of head trauma. EYES: EOMI, conjunctiva normal ENT: Hearing grossly intact LUNGS: Nonlabored breathing. HEART: [Regular rate and rhythm] ABD: [Soft], [nontender to palpation] EXT: Normal range of motion SKIN: 7 cm lac left forearm NEURO: [Alert and oriented x 3. No gross focal sensory or strength deficits.] PSYCH: Normal affect Course Vital Signs Vital signs: Vital Signs Temperature 97.6 F 03/26/24 15:52 Pulse Rate 77 03/26/24 15:52 Respiratory Rate 18 03/26/24 15:52 Blood Pressure 145/88 H 03/26/24 15:52 Pulse Oximetry 99 03/26/24 15:52 Oxygen Delivery Room Air 03/26/24 15:52 Temperature 97.6 F 03/26/24 15:52 Pulse Rate 83 03/26/24 16:55 Respiratory Rate 20 03/26/24 16:55 Blood Pressure 148/93 H 03/26/24 16:55 Pulse Oximetry 100 03/26/24 16:55 Oxygen Delivery Room Air 03/26/24 15:52 Procedures Laceration Laceration 1: Description: linear Depth: simple, single layer Local Anesthetic: lidocaine 1% and with epi Amount of anesthesia used (mL): 2 Pre-repair: irrigated extensively and deep structures intact ====== Skin Level ====== Skin layer closed with: nylon Size (cm): 4-0 Number of sutures: 8 Technique: simple, interrupted ====== Subcutaneous Layer ====== ====== Muscle Layer ====== ====== Tendon Layer ====== MDM - Wound/Laceration MDM Narrative Medical decision making narrative: patient here with laceration from chainsaw, 7 cm laceration is clean appearing here, irrigated under sink for 5 minutes, cleaned and his tetanus is up-to-date, closed here, see procedure note, stable for discharge with return precautions. Discharge Plan Discharge Clinical Impression: Laceration Patient Disposition: Home, Self-Care Condition: Stable Instructions: Antibiotic Form, Laceration (ED) Additional Instructions: Keep your wound clean, the stitches need to come out in 10-14 days, he can have been taken out by your doctor or come back here or go to urgent care. You can always return to the emergency room for any further issues. Prescriptions: No Action (DME) CPAP See Rx Instructions .Route .MEDSUPPLY Qty: 1 0RF Rx Instructions: As directed omeprazole 40 mg capsule,delayed release(DR/EC) 40 mg PO DAILY telmisartan 80 mg tablet See Rx Instructions .ROUTE .COMPLEX Qty: 90 1RF Dose Instruction: TAKE 1 TABLET DAILY Rx Instructions: TAKE 1 TABLET DAILY trazodone 100 mg tablet See Rx Instructions .ROUTE .COMPLEX Qty: 90 1RF Dose Instruction: TAKE 1 TABLET DAILY Rx Instructions: TAKE 1 TABLET DAILY amoxicillin 875 mg tablet 875 mg PO Q12H Qty: 20 0RF Follow-up/Referrals: Jamarcus Varner MD [Primary Care Provider] - 2 Days
== END 2024-03-26 16:57 | disposition home or self-care (01) ==
PROVIDERS: Emergency Provider Emergency Medicine; PCP Family Medicine
DX: S51.812A Laceration without foreign body of left forearm, initial encounter (principal); I10 Essential (primary) hypertension; E66.9 Obesity, unspecified; Z68.29 Body mass index [BMI] 29.0-29.9, adult; J45.40 Moderate persistent asthma, uncomplicated; G47.33 Obstructive sleep apnea (adult) (pediatric); F43.22 Adjustment disorder with anxiety; Z85.820 Personal history of malignant melanoma of skin; Z86.0100 Personal history of colon polyps, unspecified; Z87.891 Personal history of nicotine dependence; W29.3XXA Contact with powered garden and outdoor hand tools and machinery, initial encounter
CPT/HCPCS: 12001; 99282

== ENCOUNTER 2024-12-19 15:45 | Inpatient (IN) | payer MEDICARE, OTHER, SELFPAY ==
--- NOTE | ~2024-12-19 | MR_ITS ---
EXAMINATION: MR MRCP wo/w con/w 3D wo ind DATE: 12/20/2024 14:14 INDICATION: Acute cholecystitis. Assess for choledocholithiasis. TECHNIQUE: Magnetic resonance imaging (MRI) of the abdomen was performed without and with 19 mL Multi almas intravenous contrast. Sequences included coronal T2-weighted SS-FSE, coronal T2-weighted FS SS- FSE, coronal T2-weighted FS FIESTA, axial T2-weighted FS FIESTA, axial T2-weighted FIESTA, sagittal T 2-weighted SS-FSE, axial T1-weighted dual-echo FSPGR, axial T2-weighted SS-FSE, axial T1-weighted LAV A, axial T2-weighted STIR FSE. Thick-slab T2-weighted FRFSE-XL images were obtained for magnetic reso nance cholangiopancreatography (MRCP). Rotating maximum intensity projection 3-D reconstructions of t he volumetric data were created by the technologist. Postcontrast sequences included a time course of axial T1-weighted LAVA. COMPARISON: CT dated 12/19/2024 FINDINGS: ABDOMEN MRI: Heart size normal. No pericardial or pleural effusion. Susceptibility artifact at the gastroesophagea l junction associated with a likely Aviva fundoplication with residual small portion of the wrap ext ending couple centimeters above level of the diaphragm. Liver, spleen, pancreas, bilateral adrenal gl ands and kidneys are normal. There are multiple low signal intensity gallstones within the gallbladde r which demonstrates irregular thickened enhancing wall. There appears be a defect in the enhancing g allbladder mucosa at the fundus with a small crescentic peripherally enhancing abscess which measures 3.7 x 1.8 x 2.0 cm extending along the anteromedial margin of the fundus of the gallbladder. Unclear where there is is intramural or immediately extramural. Favor the former. Visualized portions of bow els are unremarkable. No pathologically enlarged abdominal or upper pelvic lymphadenopathy. L5 spondy lolysis with bilateral pars intra-articular is defects and 1.4 cm anterolisthesis on S1. Severe lumbo sacral and mild to moderate lumbar spondylosis. ABDOMEN MRCP: The common hepatic duct is mildly dilated to 11 mm and tapering to 6 mm at the common bile duct. Ther e is a single 3-4 mm filling defect in the distal common bile duct on the coronal T2-weighted SSFSE s equence which is of low signal intensity but not signal absent as typical for gallstones. No correlat e identified on the remaining sequences including the MRCP images. On the axial T2-weighted images of the posterior wall of the distal common bile. Bulge slightly inward/anteriorly and the appearance on the coronal imaging could represent volume averaging of this inward bulging portion of the posterior hepatic duct. No definitive choledocholithiasis. No intrahepatic biliary ductal dilation. The main p ancreatic duct is also normal measuring up to 2.5 mm in maximal diameter at the head of the pancreas, tapering to 2 mm at the neck of the pancreas and continued progressive narrowing of the duct as it e xtends through the body and tail. IMPRESSION: 1. Cholelithiasis and severe acute cholecystitis with defect in the mucosa at the fundus of the gallb ladder with small extraluminal versus more likely intramural abscess at the periphery of the fundus. 2. Mild dilation of the common hepatic duct to 11 mm tapering to normal 6 normal caliber at the commo n bile duct and with no intrahepatic biliary ductal dilation. No definitive choledocholithiasis. 3. Small sliding-type hiatal hernia with postoperative change of prior Aviva fundoplication. Reviewed, dictated and finalized at location A. IMPRESSION: 1. Cholelithiasis and severe acute cholecystitis with defect in the mucosa at t he fundus of the gallbladder with small extraluminal versus more likely intramu ral abscess at the periphery of the fundus. 2. Mild dilation of the common hepatic duct to 11 mm tapering to normal 6 luis l caliber at the common bile duct and with no intrahepatic biliary ductal dilat ion. No definitive choledocholithiasis. 3. Small sliding-type hiatal hernia with postoperative change of prior Aviva f undoplication.
--- NOTE | ~2024-12-19 | CT_ITS ---
EXAMINATION: CT chest abdomen pelvis w con DATE: 12/19/2024 20:08 INDICATION: abd pain, epigastic pain . TECHNIQUE: Computed tomography (CT) of the chest, abdomen, and pelvis was performed with 100 mL Omnip aque-350 intravenous contrast. Automated exposure control and iterative reconstruction technique were employed. The dose-length product was 1845.08 mGy-cm. COMPARISON: CT chest, same date FINDINGS: CHEST: Thoracic aorta: No significant dilation. No dissection. Lung parenchyma and airways: Lungs and airways are clear. Thoracic inlet, axillae and chest wall: No thyroid or soft tissue mass. No axillary lymphadenopathy. Mediastinum: No mass or lymphadenopathy. Small hiatal hernia. Heart and pericardium: Mild cardiomegaly. Trace pericardial fluid. Coronary artery calcifications: Mild. Pleura: No effusion or mass. Thoracic bones: No acute osseous finding in the chest. ABDOMEN/PELVIS: Liver: Normal. Biliary/Gallbladder: Cholelithiasis. Severe gallbladder wall edema with moderate surrounding inflamma tory change. Mild intrahepatic and extrahepatic bile duct dilation and inflammatory change. Pancreas: No mass or duct dilation. Spleen: Normal. Adrenals:No mass. Kidneys: No suspicious mass, obstructing stone, or hydronephrosis. GI tract: Status post Aviva fundoplication. Mild proximal duodenal wall edema. No small or large bow el dilation. Normal appendix. Mesentery/Peritoneum: No ascites, mass, or free air. Retroperitoneum: No mass Atherosclerotic calcifications of intra-abdominal arterial vessels. Pelvis: Bladder wall thickening in a partially distended urinary bladder. Mild prostatomegaly. Soft Tissues: Small uncomplicated fat-containing umbilical and bilateral inguinal hernias. Abdominopelvic bones: No acute osseous finding in the abdomen/pelvis. Grade 2 anterolisthesis at L5- S1 secondary to bilateral pars defects. IMPRESSION: Cardiomegaly with trace pericardial fluid. Severe acute cholecystitis. Mild intra and extrahepatic bile duct dilation, with inflammatory changes of the first portion of the duodenum and extrahepatic ducts, presumably secondary to the gallbladder process. No obstructing bam iary stone or mass detected. Bladder wall thickening, may be secondary to cystitis or incomplete distention/chronic outlet obstruc tion. Reviewed, dictated and finalized at location K. IMPRESSION: Cardiomegaly with trace pericardial fluid. Severe acute cholecystitis. Mild intra and extrahepatic bile duct dilation, with inflammatory changes of th e first portion of the duodenum and extrahepatic ducts, presumably secondary to the gallbladder process. No obstructing biliary stone or mass detected. Bladder wall thickening, may be secondary to cystitis or incomplete distention/ chronic outlet obstruction.
[2024-12-19 15:46] VITALS: BP 148/97; PULSE 115; RESP 20; TEMP 36.6; O2SAT 100
--- OUTSIDE RECORDS SUMMARY | 2024-12-19 15:47 | XMS_ITS | Referral Summary ---
Author Organization [facility] Address [address] [place] [address] Care Team Providers Care Parts Washer Name Role Phone Jamarcus Varner MD Primary Care Provider [phone] Mata Whelan MD Unavailable [phone] Allergies Active Allergy Reactions Criticality Noted Date Comments Metoclopramide Anxiety Low 04/27/2019 Medications traZODone (DESYREL) 100 mg tabletIndicatio ns:insomnia associated with depression Take 1 tablet (100 mg total) by mouth nightly as needed Active telmisartan (MICARDIS) 80 mg tabletIndicatio ns:hypertension Take 1 tablet (80 mg total) by mouth nightly Active magnesium oxide 400 mg magnesium capsuleIndicati ons:supplement Take 400 mg by mouth product safety administrator before breakfast Active multivitamin capsuleIndicati ons:Vitamin Deficiency Prevention Take 1 capsule by mouth product safety administrator before breakfast Active HERBAL DRUGS ORALIndications :supplement Take 1 tablet by mouth every morning BEET ROOT , Heart Greens , Active melatonin 5 mg tabletIndicatio ns:sleep Take 1 tablet (5 mg total) by mouth nightly Active omeprazole (PriLOSEC) 40 mg capsule Take 1 capsule (40 mg total) by mouth every morning Active bran/gum/fib/ce l/psyl/kelp/pec (FIBER 6 ORAL) Take 1 tablet by mouth every morning Activ e vitamin B complex capsule Take 1 capsule by mouth every morning Activ e glucosamine/cho ndr dominguez A sod (OSTEO BI-FLEX ORAL) Take 1 tablet by mouth every morning Activ e cholecalciferol , vitamin D3, (D3-5000 ORAL) Take 1 tablet by mouth every morning Activ e flaxseed powder Take 1 Dose by mouth every morning Active calcium/chondr/ collag/glycosam (BEYOND BONE BROTH ORAL) Take 1 Dose by mouth every morning Active collagen/biotin /ascorbic acid (COLLAGEN 1500 PLUS C ORAL) Take 1 tablet by mouth every morning Activ e aluminum hydrox-magnesiu m carb 254-237.5 mg/5 mL suspensionIndic ations:Dyspepsi a,gastroesophag eal reflux disease,Heartbu rn,Hiatal Hernia with Reflux Esophagitis Take 10 mL by mouth 4 (four) times a day as needed (as needed for gas,heartburn, or indigestion) Take 10 mL by mouth 4 (four) times a day as needed (bloating, stomach upset, indigestion, heartburn or spasm). Repeat or increase dose if symptoms are not completely relieved. Maximum dose 80 mLper 24 hours - Refer to package directions Indications: indigestion, gastroesophageal reflux disease, heartburn, hiatal hernia with acid reflux esophagus inflammation. If not available by prescription or covered by your insurance plan, you may purchase [place] Fiber [id number]. 355 mL 09/03/19 24 Active HYDROcodone-korey taminophen (NORCO) 5-325 mg per tabletIndicatio ns:Pain Take 1-2 tablets by mouth every 4 (four) hours as needed for pain 25 tablet 09/03/19 24 Active polyethylene glycol (MIRALAX) 17 gram/dose bulk powder Take 17 g by mouth daily As needed for constipation or if no bowel movement for over 1 day. May buy [id number] if inadequate coverage by insurance plan. Take with 16 oz of additional water minimum. 238 g 2 09/03/19 24 Active ondansetron (ZOFRAN) 4 mg tabletIndicatio ns:Prevention of Post-Operative Nausea and Vomiting Take 1-2 tablets (4-8 mg total) by mouth every 6 (six) hours as needed for nausea or vomiting 40 tablet 3 09/03/19 24 Active prochlorperazin e (COMPAZINE) 10 mg tabletIndicatio ns:Nausea and Vomiting Take 1 tablet (10 mg total) by mouth every 6 (six) hours as needed for nausea or vomiting 30 tablet 3 09/03/19 24 Active Active Problems Problem Noted Date Diagnosed Date Paraesophageal hernia with obstruction but no ga ngrene 07/09/2023 Gastroesophageal reflux dise ase with esophagitis without hemorrhage 07/09/2023 Hiatal hernia 04/30/2023 Radiotherapy follow-up 08/22/2021 Hammer toe 07/30/2021 Shoulder joint pain 07/30/2021 Primary localized osteoarthrosis of shoulder reg ion 07/30/2021 Pes planus 07/30/2021 Incomplete tear of rotator cuff 07/30/2021 Fracture of lower leg 07/30/2021 Closed fracture of phalanx of foot 07/30/2021 Pain in joint involving ankle and foot Hammer toe of left foot 03/30/2019 Overview (03/30/2019): Added automatically from request for surgery [id number] Hallux valgus of left foot 03/30/2019 Overview (03/30/2019): Added automatically from request for surgery [id number] Dislocation of MTP joint of left lesser toe(s), init 03/30/2019 Overview (03/30/2019): Added automatically from request for surgery [id number] Immunizations Immunization Administration Dates Next Due Influenza, Unspecified 03/15/2023 Social History Tobacco Use Types Packs/Day Years Used Date Smoking Tobacco: Former Cigarettes 0.5 32 1 975 - 2007 Smokeless Tobacco: Never Tobacco Cessation:Counseling Given: Not Answered Alcohol Use Standard Drinks/Week Comments Yes 14 (1 standard drink = 0.6 oz pu re alcohol) AUDIT-C Answer Date Recorded Q1: How often do you have a drink containing alcohol? Never 08/19/2023 Q2: How many drinks containi ng alcohol do you have on a typical day when you are drinking? Patient does not drink Q3: How often do you have si x or more drinks on one occasion? Never 08/19/2023 Personal Safety Answer Date Recorded Have you ever been in or are you currently in a harmful physical or emotional relationship or is someone making you feel afraid or unsafe? Denies 09/01/2023 Sex and Gender Information Value Date Recorded Sex Assigned at Not on file Legal Sex Male 1:06 PM AUDITING CODER Gender Identity Not on file Sexual Orientation Not on file Last Filed Vital Signs Vital Sign Reading Time Taken Comments Blood Pressure 98/82 09/17/2023 2:42 PM CDT Pulse 104 09/03/2023 11:50 AM CDT Temperature 36.9 C (98.5 F) 09/17/2023 2:42 PM CDT Respiratory Rate 16 09/03/2023 11:5 0 AM CDT Oxygen Saturation 97% 09/03/2023 11: 50 AM CDT Inhaled Oxygen Concentration - - Weight 113.9 kg (251 lb 1.7 oz) 09/01/2023 6:45 AM CDT Height 193 cm (6' 4) 09/01/2023 6:45 AM CDT Body Mass Index 30.57 09/01/2023 6:45 AM CDT Plan of Treatment Not on file Medical Devices Implanted Type Area Chief Minister Device Identifier Shelf Expiration Date Model / Serial / Lot [employer] Inc/C R Bard Phasix Sepra 4x4in Monofilament Resorbable Square Mesh Surgical [id number] - [id number] Implanted:Qty: 1 on 09/01/2023 by Mata Whelan MD at [facility] Mesh N/A: Esophagus [employer] Inc/C R Bard 05/12/2025 [id number] / / [id number] [employer] [id number] Wilfredo .062in 9in 1 Trocar Smooth Wire Fixation - S0 - [id number] Implanted:Qty: 1 on 05/24/2019 by Diana Thomson MD at [facility] Wire Left: Foot [employer] [id number] / 0 / Screw Bone 3mm 32mm Prostep Cydney Ti Aluminum Vanadium F/T - [id number] Implanted:Qty: 1 on 07/12/2021 by Oli Navarrete MD at [facility] Right: First Toe [employer] 09/27/2028 [id number] / / [employer] [id number] Wilfredo .062in 9in Style 1 Wire Fixation Stainless Steel - [id number] Implanted:Qty: 4 on 07/12/2021 by Oli Navarrete MD at [facility] [place] Right: First Toe [employer] [id number] S / / Description:TOES 2-5 Explanted Type Area Chief Minister Device Identifier Shelf Expiration Date Model / Serial / Lot [employer] [id number] Wilfredo .062in 9in 1 Trocar Smooth Wire Fixation - [id number] Explanted:Qty: 1 on 05/24/2019 by Diana Thomson MD at [facility] Wire Left: Foot [employer] [id number] / / Description:0.45 provisional fixation [employer] [id number] Wilfredo .045in 9in 2 Trocar Style 2 End Orthopedic Wire - S0 - [id number] Explanted:Qty: 4 on 05/24/2019 by Diana Thomson MD at [facility] Wire Left: Foot [employer] [id number] / 0 / Wire Fxatn .9mm 150mm Wilfredo Trocar Blunt Strl - [id number] Explanted:Qty: 2 on 07/12/2021 at [facility] [place] Right: First Toe [employer] 12/26/2026 [id number] / / Insurance [facility] ACCESS CHOICE [employer] Advance Directives For more information, please contact: [phone] * Full Code (Latest Code Status on File) Date Activated Date Inactivated Comments 09/01/2023 4:19 PM 09/03/2023 4:38 PM Care Teams Parts Washer Relationship Specialty Start Date End Date Jamarcus Varner MD PCP - General Family Medicine 11/10/18 Mata Whelan MD Consulting Physician General Surgery 09/03/23
--- OUTSIDE RECORDS SUMMARY | 2024-12-19 15:47 | XMS_ITS | Clinical Summary ---
Author Organization [facility] Care Team Providers Care Card Writer Hand Name Role Phone Unavailable Primary Care Provider Unavailabl e Social History Tobacco Use Types Packs/Day Years Used Date Smoking Tobacco: Never Assessed Sex and Gender Information Value Date Recorded Sex Assigned at Not on file Legal Sex Male 7:46 PM CDT Gender Identity Not on file Sexual Orientation Not on file Plan of Treatment Health Maintenance Due Date Last Done Comments Hepatitis C Virus (HCV) Screening 1960 Cologuard 2003 Immunochemical Fecal Occult Blood 2003 Zoster Immunization (2 of 2) 04/20/2019 02/23/2019 Pneumococcal Immunization (5 0+ years) (2 of 2 - PPSV23) 02/22/2020 02/21/2019 SARS-COV-2 Immunization ( season) 2024 04/13/2021, 08/14/2020, 07/12/2020 Colonoscopy 11/23/2024 11/23/2014 Colorectal Cancer Screening 11/23/2024 Influenza Immunization (#1) 2025 Respiratory Syncytial Virus (RSV) Immunization (Adult) (1 - 1-dose 75+ series) 2033 Pneumococcal Immunization Combined Discontinued 02/21/2019 DTaP/Tdap/Td Immunization Discontinued 2019, 12/02/2019 TdaP Immunization Completed 03/27/2020, 12/02/2019 Hepatitis B Immunization Aged Out No longer eligible based on patient's age to complete this topic Human Papillomavirus (HPV) Immunization Aged Out No longer eligible based on patient's age to complete this topic Meningococcal Immunization (ACWY) Aged Out No longer eligible based on patient's age to complete this topic Rotavirus Immunization Aged Out No lo nger eligible based on patient's age to complete this topic Procedures Procedure Name Priority Date/Time Associated Diagnosis Comments HM COLONOSCOPY Routine 11/23/2014 from Last 3 Months or Most Recently Relevant to Health Maintenance Results * COLONOSCOPY (11/23/2014) Toni Crandall DO PROCEDURE/MINOR SURGICAL ORDERA BLES Final Result from Last 3 Months or Most Recently Relevant to Health Maintenance
--- OUTSIDE RECORDS SUMMARY | 2024-12-19 15:48 | XMS_ITS | Clinical Summary ---
Author Organization [facility] Address [address] [place] [address] Care Team Providers Care Assembler Skylights Name Role Phone Jamarcus Varner MD Primary Care Provider [phone] Social History Tobacco Use Types Packs/Day Years Used Date Smoking Tobacco: Never Assessed Sex and Gender Information Value Date Recorded Sex Assigned at Not on file Legal Sex Male 4:45 PM CDT Gender Identity Not on file Sexual Orientation Not on file Plan of Treatment Health Maintenance Due Date Last Done Comments Colorectal Cancer Screening Colonoscopy (10 Years) 1960 Hepatitis C 1976 DTaP, Tdap and Td Vaccines ( 1 - Tdap) 1977 Pneumococcal Vaccine: 50+ Ye ars (1 of 1 - PCV) 2008 Zoster Vaccines (1 of 2) 2008 Annual Medicare Wellness Visit 2023 COVID-19 Vaccine (1 - 2023-2 5 season) 2024 RSV Immunization or 60+ Years (1 - 1-dose 75+ series) 2033 Meningococcal B Vaccine Aged Out No l onger eligible based on patient's age to complete this topic Meningococcal Vaccine Aged Out No ashley dontrell eligible based on patient's age to complete this topic RSV Immunizations Under 20 Months Aged Out No longer eligible based on patient's age to complete this topic Insurance MEDICARE [facility] Care Teams Assembler Skylights Relationship Specialty Start Date End Date Jamarcus Varner MD [id number] [facility] [address] [address] PCP - General FAMILY PRACTICE 05/12/23
--- OUTSIDE RECORDS SUMMARY | 2024-12-19 15:48 | XMS_ITS | Clinical Summary ---
Author Organization [facility] Address [address] [place] [address] Care Team Providers Care Railroad Supervisor Of Engines Name Role Phone Jamarcus Varner MD Primary Care Provider [phone] Mtaa Whelan MD Unavailable [phone] Allergies Active Allergy Reactions Criticality Noted Date Comments Metoclopramide Anxiety Low 04/27/2019 Medications traZODone (DESYREL) 100 mg tabletIndicatio ns:insomnia associated with depression Take 1 tablet (100 mg total) by mouth nightly as needed Active telmisartan (MICARDIS) 80 mg tabletIndicatio ns:hypertension Take 1 tablet (80 mg total) by mouth nightly Active magnesium oxide 400 mg magnesium capsuleIndicati ons:supplement Take 400 mg by mouth senior windows systems engineer before breakfast Active multivitamin capsuleIndicati ons:Vitamin Deficiency Prevention Take 1 capsule by mouth senior windows systems engineer before breakfast Active HERBAL DRUGS ORALIndications :supplement [...] by your insurance plan, you may purchase [employer] [id number]. 355 mL 09/03/19 24 Active HYDROcodone-korey taminophen (NORCO) 5-325 mg per tabletIndicatio ns:Pain Take 1-2 tablets by mouth every 4 (four) hours as needed for pain 25 tablet 09/03/19 24 Active polyethylene glycol (MIRALAX) 17 gram/dose bulk powder Take 17 g by mouth daily As needed for constipation or if no bowel movement for over 1 day. May buy [id number] if inadequate coverage by insurance plan. Take [...] (03/30/2019): Added automatically from request for surgery [id number] Hallux valgus of left foot 03/30/2019 Overview (03/30/2019): Added automatically from request for surgery [id number] Dislocation of MTP joint of left lesser toe(s), init 03/30/2019 Overview (03/30/2019): Added automatically from request for surgery [id number] Immunizations Immunization Administration Dates Next Due Influenza, Unspecified 03/15/2023 Surgical History Surgery Date Site/Laterality Comments FOOT SURGERY 05/24/2019 Left left great toe proximal phalanax osteotomy lesser hammertoe corrections ( 2,3,4 & 5) 2,3,4,5 metatarsophalangeal capsulotomy 2,3,4,5 metatarsal shortening osteotomy 4 & 5 flexor tenotomy - Left ROTATOR CUFF REPAIR 06/15/2017 - 06/14/2018 Left ROTATOR CUFF REPAIR 06/15/2015 - 06/14/2016 Right SINUS SURGERY 2009? 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 Gender Identity Not on file Sexual Orientation Not on file Obstetrics History Last Filed Vital Signs Vital Sign Reading [...] 09/01/2023 6:45 AM CDT Plan of Treatment Health Maintenance Due Date Last Done Comments Colon Cancer Screening-Colonoscopy 1960 Depression Screening 1960 Hepatitis C Screening 1960 Prostate Cancer Screening-PSA 1958 Hepatitis B Screening 1976 Zoster Vaccine (2 of 2) 04/20/2019 02/23/2019 Pneumococcal vaccine 65+ (2 of 2 - PPSV23) 02/22/2020 02/21/2019 Abdominal Aortic Aneurysm (A AA) Screen 2023 Well Visit 65+ 2023 Covid-19 Vaccine ( season) 2024 04/13/2021, 08/14/2020, 07/12/2020 Fall Risk Assessment 09/02/2024 09/03/2023 Influenza Vaccine (Season Ended) 2025 03/15/20 23 DTaP/Tdap/Td Vaccine (3 - Td or Tdap) 03/27/2030, 12/02/2019 Medical Devices Implanted Type Area Counter Supervisor Device Identifier Shelf Expiration Date Model / Serial / Lot [employer]ol Inc/C R Bard Phasix Sepra 4x4in Monofilament Resorbable Square Mesh Surgical [id number] - [id number] Implanted:Qty: 1 on 09/01/2023 by Mata Whelan MD at [facility] Mesh N/A: Esophagus [employer] Inc/C R Bard 05/12/2025 [id number] / / [id number] [employer] [id number] Wilfredo .062in 9in 1 Trocar Smooth Wire Fixation - S0 - [id number] Implanted:Qty: 1 on 05/24/2019 by Diana Thomson MD at [facility] Left: Foot [employer] [id number] / 0 / Screw Bone 3mm 32mm Prostep Cydney Ti Aluminum Vanadium F/T - [id number] Implanted:Qty: 1 on 07/12/2021 by Oli Navarreet MD at [facility] Right: First Toe [employer] 09/27/2028 [id number] / / [employer] [id number] Wilfredo .062in 9in Style 1 Wire Fixation Stainless Steel - [id number] Implanted:Qty: 4 on 07/12/2021 by Oli Navarrete MD at [facility] Right: First Toe [employer] [id number] S / / Description:TOES 2-5 Explanted Type Area Counter Supervisor Device Identifier Shelf Expiration Date Model / Serial / Lot [employer] [id number] Wilfredo .062in 9in 1 Trocar Smooth Wire Fixation - [id number] Explanted:Qty: 1 on 05/24/2019 by Diana Thomson MD at [facility] Wire Left: Foot [employer] [id number] / / Description:0.45 provisional fixation [employer] [id number] Wilfredo .045in 9in 2 Trocar Style 2 End Orthopedic Wire - S0 - [id number] Explanted:Qty: 4 on 05/24/2019 by Diana Thomson MD at [facility] Wire Left: Foot [employer] [id number] / 0 / Wire Fxatn .9mm 150mm Wilfredo Trocar Blunt Strl - [id number] Explanted:Qty: 2 on 07/12/2021 at [facility] Right: First Toe [employer] 12/26/2026 [id number] / / [place] [address] [place] [address] [employer] CHOICE MEDICARE [employer] Advance Directives For more information, please contact: [phone] * Full Code (Latest Code Status on File) Date Activated Date Inactivated Comments 09/01/2023 4:19 PM 09/03/2023 4:38 PM Care Teams Railroad Supervisor Of Engines Relationship Specialty Start Date End Date Jamarcus Varner MD PCP - General Family Medicine 11/10/18 Mata Whelan MD Consulting Physician General Surgery 09/03/23
--- NOTE | 2024-12-19 15:49 | ED.ABDPAIN ---
HPI - Abdominal Pain General Chief Complaint: Abdominal Pain <Evelina Lemos PA-C - Last Filed: 12/20/24 11:14> Stated Complaint: my DR sent me here for a bowel obstruction <Evelina Lemos PA-C - Last Filed: 12/20/24 11:14> Time Seen by Provider: 12/19/24 15:49 <Evelina Lemos PA-C - Last Filed: 12/20/24 11:14> Focused HPI: This is a 64 year old male that presents to the ER for abdominal pain ongoing over the last couple of days. Reports nausea, vomiting, fevers. Reports abdominal distention. PCP sent him in for further evaluation/possible small bowel obstruction. GENERAL: Well-appearing, well-nourished, and in no acute distress. HEAD: Normocephalic, atraumatic. CHEST: Clear to auscultation. ?No respiratory distress. HEART: Regular rate and rhythm.? NEURO: ?Alert and oriented x3. Patient screened in triage and initial orders placed.? ?Additional care and disposition to be based upon?diagnostic testing and treatment. <Evelina Lemos PA-C - Last Filed: 12/20/24 11:14> Related Data Home Medications: Home Medications ?Medication ?Instructions ?Recorded ?Confirmed ?Last Taken ?Type omeprazole 40 mg capsule,delayed 40 mg PO DAILY 07/01/23 12/19/24 12/19/24 History release ondansetron 4 mg disintegrating 4 mg PO Q8H 04/28/24 12/19/24 Unknown History tablet telmisartan 80 mg tablet 80 mg PO HS 12/19/24 12/19/24 12/18/24 History trazodone 100 mg tablet 100 mg PO HS 12/19/24 12/19/24 12/18/24 History <DAMIR White Last Filed: 12/20/24 11:14> Allergies/Adverse Reactions: Allergies Allergy/AdvReac Type Severity Reaction Status Date / Time amlodipine Allergy Severe Swelling Verified 12/19/24 13:52 metoclopramide AdvReac Intermediate Anxiety Verified 12/19/24 13:52 <DAMIR White Last Filed: 12/20/24 11:14> Review of Systems Review of Systems: All systems are reviewed and are negative unless stated otherwise in the HPI. <Maritza Phillips MD - Last Filed: 12/19/24 21:00> [facility] Past Medical History Medical History: Medical History Hiatal hernia Eosinophilic esophagitis Malignant melanoma Chronic sinusitis, unspecified Alcoholism with alcohol dependence Calhoun esophagus Iron deficiency anemia Prediabetes Adjustment disorder with anxious mood Obesity (BMI 30.0-34.9) Colon polyps Hammertoe of left foot Essential (primary) hypertension Moderate persistent reactive airway disease with wheezing without complication Obstructive sleep apnea <Evelina Lemos PA-C - Last Filed: 12/20/24 11:14> Surgical History Surgical History: Surgical History History of colonoscopy with polypectomy S/P repair of paraesophageal hernia Robotic assisted laparoscopic paraesophageal hernia repair H/O sinus surgery History of bunionectomy of left great toe <Evelina Lemos PA-C - Last Filed: 12/20/24 11:14> Family History Family History: Family History Father Patient's father is Family history of cardiovascular disease Family history of lung cancer Family history of congestive heart failure Mother Patient's mother is Family history of malignant neoplasm of esophagus Sibling Patient's brother is Family history of malignant neoplasm of male breast Other Family history of alcoholism Hypertension No family history of malignant neoplasm <Evelina Lemos PA-C - Last Filed: 12/20/24 11:14> Social History Social History: Social History Smoking packs per day: 1 Smoking cigarettes per day: 20.0 Years smoked: 10 Smoking pack-years: 10.00 Smoking status: Never smoker Tobacco type: cigarettes Second hand tobacco smoke exposure: No Smoking end date: 06/15/92 Alcohol intake: never Drinks per week: 21 Substance use: never Substance use type: does not use Lack of Transportation: No Lack of Food: Never True Current Housing: I Have Housing Concerned About Future Housing: No Difficulty Paying Gas/Electric Bills: No Difficulty Paying for Meds: No Currently Unemployed: No Education: Master's Degree or Higher Difficulty w/ Childcare or Family Care: No Living arrangements: with family Additional living arrangements comments: He lives with his . A.m. 1 daughter. He used to drink 20 alcoholic beverages a week but stopped drinking alcohol in 2022 when he had is Aviva fundoplication. He used to smoke a pack of cigarettes per day for 20 years. He quit smoking around age 38. 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 Gender identity (if verbalized by the patient): Male Spiritual care concerns: No <Evelina Lemos PA-C - Last Filed: 12/20/24 11:14> Exam Narrative: General: Alert, awake, afebrile, in no acute distress. HEENT: PERRL, no rhinorrhea, no post nasal drip, oropharynx clear. Neck: Trachea midline, no JVD, no lymphadenopathy. Cardiovascular: Regular rate and rhythm, no murmurs, rubs or gallops, no peripheral edema. Respiratory: Clear to auscultation bilaterally, no tachypnea, no wheezing, no rhonchi, no rubs, no respiratory distress. Abdomen: Soft, nontender, distended, no rebound, no guarding, no peritoneal signs. Musculoskeletal: No joint swelling or deformity, normal muscle tone. Skin: No rashes or petechia, no signs of infection. Psychiatric: Alert and oriented, normal behavior and judgment for situation. Neurological: Alert and oriented to person, place, and time. Follows all commands. No focal deficits, speech is clear and fluent. <Maritza Phillips MD - Last Filed: 12/19/24 21:00> Course Vital Signs Vital signs: Vital Signs Temperature 97.9 F 12/19/24 15:46 Pulse Rate 115 H 12/19/24 15:46 Respiratory Rate 20 12/19/24 15:46 Blood Pressure 148/97 H 12/19/24 15:46 Pulse Oximetry 100 12/19/24 15:46 Oxygen Delivery Room Air 12/19/24 15:46 Temperature 97.8 F 12/20/24 06:00 Pulse Rate 97 12/20/24 06:00 Respiratory Rate 12 12/20/24 06:00 Blood Pressure 119/57 L 12/20/24 06:00 Pulse Oximetry 96 12/20/24 06:00 Oxygen Delivery CPAP 12/20/24 04:43 <Evelina Lemos PA-C - Last Filed: 12/20/24 11:14> Vital Signs Temperature 97.9 F 12/19/24 15:46 Pulse Rate 115 H 12/19/24 15:46 Respiratory Rate 20 12/19/24 15:46 Blood Pressure 148/97 H 12/19/24 15:46 Pulse Oximetry 100 12/19/24 15:46 Oxygen Delivery Room Air 12/19/24 15:46 Temperature 97.8 F 12/20/24 06:00 Pulse Rate 97 12/20/24 06:00 Respiratory Rate 12 12/20/24 06:00 Blood Pressure 119/57 L 12/20/24 06:00 Pulse Oximetry 96 12/20/24 06:00 Oxygen Delivery CPAP 12/20/24 04:43 <Maritza Phillips MD - Last Filed: 12/19/24 21:00> MDM - Abdominal Pain MDM Narrative Medical decision making narrative: The patient was evaluated by myself in the emergency department. History is obtained from patient who is an independent historian and physical exam was performed. External medical records were reviewed at this time. IV was established and pertinent tests were ordered. Patient was administered 2 mg of IV morphine, 4 mg IV Zofran and 1 L IV fluid bolus with normal saline. Laboratory results obtained revealing a leukocytosis of 12.7, otherwise unremarkable. Urinalysis unremarkable. Imaging studies obtained included CT chest abdomen pelvis with IV contrast which was independently interpreted by me revealing: IMPRESSION: Cardiomegaly with trace pericardial fluid. Severe acute cholecystitis. Mild intra and extrahepatic bile duct dilation, with inflammatory changes of the first portion of the duodenum and extrahepatic ducts, presumably secondary to the gallbladder process. No obstructing biliary stone or mass detected. Bladder wall thickening, may be secondary to cystitis or incomplete distention/chronic outlet obstruction. At this time, case was discussed with the on-call general surgeon Dr. Sears at 2040 any accepted admission. Patient was started on Zosyn. Continued on maintenance fluids at a rate of 100 cc/hour with normal saline. Differential diagnosis considerations include small bowel obstruction, constipation, dehydration, electrolyte derangements. Comorbidities impacting this visit include history of Aviva fundoplication. I have evaluated and discussed social determinants of health with the patient that could potentially impact subsequent diagnosis and treatment plans. On repeat assessment of the patient, reevaluation revealed that the patient is doing well and is in no acute distress. Patient symptoms have improved since he arrived to our emergency department. Repeat vital signs were all reviewed and noted to be stable. Differential diagnosis and treatment plan were discussed with the patient at bedside. Patient agrees with discussion and after shared medical decision making agrees with admission. All questions were answered to the patient's satisfaction. Case was discussed with the on-call hospitalist Dr. Elizalde at 2049 and she accepted admission. <Maritza Phillips MD - Last Filed: 12/19/24 21:00> Lab Data Result diagrams: 12/20/24 05:41 12/20/24 05:41 <Evelina Lemos PA-C - Last Filed: 12/20/24 11:14> Labs: Lab Results 12/19/24 12/19/24 Range/Units 17:03 18:55 WBC 12.7 H (4.5-10.0) K/mm3 RBC 4.91 (4.6-6.20) M/mm3 Hgb 14.8 (14.0-18.0) g/dL Hct 43.4 (42.0-52.0) % MCV 88.4 (80-100) fl MCH 30.1 (26-34) pg MCHC 34.1 (32-36) g/dl RDW 11.7 (11.5-14.5) % Plt Count 184 (150-375) k/mm3 MPV 10.1 (7.4-10.4) fl Immature Gran % (Auto) 0.4 (0-0.5) % Neut % (Auto) 78.3 H (45.5-73.1) % Lymph % (Auto) 10.9 L (18.3-44.2) % [place] % (Auto) 9.9 H (2.6-8.5) % Eos % (Auto) 0.3 (0-4.4) % Baso % (Auto) 0.2 (0.2-1.2) % Lymph # (Auto) 1.38 (0.9-3.2) K/mm3 [place] # (Auto) 1.3 H (0.1-0.6) K/mm3 Eos # (Auto) 0.0 (0-0.3) K/mm3 Baso # (Auto) 0.0 (0.0-0.1) K/mm3 Abs Immat Gran (auto) 0.05 H (0.00-0.031) K/mm3 Absolute Neuts (auto) 9.9 H (1.3-6.7) K/mm3 Absolute Nucleated RBC 0.000 (0.0-0.012) K/mm3 Nucleated RBC % 0.0 (0.0-0.2) % PT 14.4 (11.1-14.7) Seconds INR 1.1 APTT 32.1 (22.3-36.8) Seconds Sodium 135 L (137-145) mmol/L Potassium 3.6 (3.4-5.0) mmol/L Chloride 101 (98-107) mmol/L Carbon Dioxide 24 (22-30) mmol/L Anion Gap 10 (4-12) mmol/L BUN 12 (9-20) mg/dL Creatinine 0.74 (0.7-1.3) mg/dL Estim Creat Clear Calc 118 ml/min Estimated GFR > 60 (59 - ) Glucose 109 (65-110) mg/dL Calcium 9.0 (8.4-10.2) mg/dL Total Bilirubin 1.4 H (0.2-1.3) mg/dL AST 43 (17-59) U/L ALT 95 H (6-50) U/L Alkaline Phosphatase 122 (38-126) U/L Total Protein 8.2 (6.3-8.2) g/dL Albumin 4.2 (3.5-5.1) g/dL Lipase 50 (23-300) U/L Urine Color Yellow (Yellow) Urine Appearance Clear (Clear) Urine pH 6.5 (5.0-9.0) Ur Specific [place] 1.008 (1.001-1.035) Urine Protein Negative (Negative) mg/dL Urine Glucose (UA) Negative (Negative) mg/dL Urine Ketones Negative (Negative) mg/dL Ur Blood (Man) Negative (Negative) Urine Nitrate Negative (Negative) Urine Bilirubin Negative (Negative) Urine Urobilinogen 1.0 (<2.0) mg/dL Leukocyte Esterase Rfl Negative (Negative) CHELA/UL <Evelina Lemos PA-C - Last Filed: 12/20/24 11:14> Lab Results 12/19/24 12/19/24 Range/Units 17:03 18:55 WBC 12.7 H (4.5-10.0) K/mm3 RBC 4.91 (4.6-6.20) M/mm3 Hgb 14.8 (14.0-18.0) g/dL Hct 43.4 (42.0-52.0) % MCV 88.4 (80-100) fl MCH 30.1 (26-34) pg MCHC 34.1 (32-36) g/dl RDW 11.7 (11.5-14.5) % Plt Count 184 (150-375) k/mm3 MPV 10.1 (7.4-10.4) fl Immature Gran % (Auto) 0.4 (0-0.5) % Neut % (Auto) 78.3 H (45.5-73.1) % Lymph % (Auto) 10.9 L (18.3-44.2) % [place] % (Auto) 9.9 H (2.6-8.5) % Eos % (Auto) 0.3 (0-4.4) % Baso % (Auto) 0.2 (0.2-1.2) % Lymph # (Auto) 1.38 (0.9-3.2) K/mm3 [place] # (Auto) 1.3 H (0.1-0.6) K/mm3 Eos # (Auto) 0.0 (0-0.3) K/mm3 Baso # (Auto) 0.0 (0.0-0.1) K/mm3 Abs Immat Gran (auto) 0.05 H (0.00-0.031) K/mm3 Absolute Neuts (auto) 9.9 H (1.3-6.7) K/mm3 Absolute Nucleated RBC 0.000 (0.0-0.012) K/mm3 Nucleated RBC % 0.0 (0.0-0.2) % PT 14.4 (11.1-14.7) Seconds INR 1.1 APTT 32.1 (22.3-36.8) Seconds Sodium 135 L (137-145) mmol/L Potassium 3.6 (3.4-5.0) mmol/L Chloride 101 (98-107) mmol/L Carbon Dioxide 24 (22-30) mmol/L Anion Gap 10 (4-12) mmol/L BUN 12 (9-20) mg/dL Creatinine 0.74 (0.7-1.3) mg/dL Estim Creat Clear Calc 118 ml/min Estimated GFR > 60 (59 - ) Glucose 109 (65-110) mg/dL Calcium 9.0 (8.4-10.2) mg/dL Total Bilirubin 1.4 H (0.2-1.3) mg/dL AST 43 (17-59) U/L ALT 95 H (6-50) U/L Alkaline Phosphatase 122 (38-126) U/L Total Protein 8.2 (6.3-8.2) g/dL Albumin 4.2 (3.5-5.1) g/dL Lipase 50 (23-300) U/L Urine Color Yellow (Yellow) Urine Appearance Clear (Clear) Urine pH 6.5 (5.0-9.0) Ur Specific [place] 1.008 (1.001-1.035) Urine Protein Negative (Negative) mg/dL Urine Glucose (UA) Negative (Negative) mg/dL Urine Ketones Negative (Negative) mg/dL Ur Blood (Man) Negative (Negative) Urine Nitrate Negative (Negative) Urine Bilirubin Negative (Negative) Urine Urobilinogen 1.0 (<2.0) mg/dL Leukocyte Esterase Rfl Negative (Negative) CHELA/UL <Maritza Phillips MD - Last Filed: 12/19/24 21:00> Imaging Data Radiologist's impression: ITS Impressions Chest/Abdomen/Pelvis CT 12/19/24 20:14 IMPRESSION: Cardiomegaly with trace pericardial fluid. Severe acute cholecystitis. Mild intra and extrahepatic bile duct dilation, with inflammatory changes of the first portion of the duodenum and extrahepatic ducts, presumably secondary to the gallbladder process. No obstructing biliary stone or mass detected. Bladder wall thickening, may be secondary to cystitis or incomplete distention/chronic outlet obstruction. <Evelina Lemos PA-C - Last Filed: 12/20/24 11:14> ITS Impressions Chest/Abdomen/Pelvis CT 12/19/24 20:14 IMPRESSION: Cardiomegaly with trace pericardial fluid. Severe acute cholecystitis. Mild intra and extrahepatic bile duct dilation, with inflammatory changes of the first portion of the duodenum and extrahepatic ducts, presumably secondary to the gallbladder process. No obstructing biliary stone or mass detected. Bladder wall thickening, may be secondary to cystitis or incomplete distention/chronic outlet obstruction. <Maritza Phillips MD - Last Filed: 12/19/24 21:00> Discharge Plan Discharge Clinical Impression: Acute cholecystitis <Evelina Lemos PA-C - Last Filed: 12/20/24 11:14> Patient Disposition: Still a Patient <Evelina Lemos PA-C - Last Filed: 12/20/24 11:14> Condition: Improved <Evelina Lemos PA-C - Last Filed: 12/20/24 11:14> Time of Disposition: 20:43 <Evelina Lemos PA-C - Last Filed: 12/20/24 11:14> 20:43 <Maritza Phillips MD - Last Filed: 12/19/24 21:00>
[2024-12-19 17:12] LABS: Hematocrit 43.4 % (42.0-52.0); Hemoglobin 14.8 g/dL (14.0-18.0); Immature Granulocyte Percent A 0.4 % (0-0.5); Lymphocytes Absolute Auto 1.38 K/mm3 (0.9-3.2); Mean Corpuscular HGB Conc 34.1 g/dl (32-36); Mean Corpuscular Hemoglobin 30.1 pg (26-34); Mean Corpuscular Volume 88.4 fl (80-100); Nucleated Red Blood Cells Absolute Auto 0.000 K/mm3 (0.0-0.012); Nucleated Red Blood Cells Perc 0.0 % (0.0-0.2); Platelet Count Result 184 k/mm3 (150-375); Red Blood Count 4.91 M/mm3 (4.6-6.20); White Blood Count 12.7 K/mm3 (4.5-10.0)
[2024-12-19 17:22] LABS: Alanine Aminotransferase 95 U/L (6-50); Albumin Level 4.2 g/dL (3.5-5.1); Alkaline Phosphatase 122 U/L (38-126); Anion Gap 10 mmol/L (4-12); Aspartate Amino Transferase 43 U/L (17-59); Bilirubin,Total 1.4 mg/dL (0.2-1.3); Blood Urea Nitrogen 12 mg/dL (9-20); Calcium 9.0 mg/dL (8.4-10.2); Carbon Dioxide 24 mmol/L (22-30); Chloride 101 mmol/L (98-107); Estimated CRCL calculation 118 ml/min; Estimated Glomerular Filt Rate > 60; Glucose 109 mg/dL (65-110); INR 1.1; Lipase 50 U/L (23-300); Potassium 3.6 mmol/L (3.4-5.0); Prothrombin Time 14.4 Seconds (11.1-14.7); Sodium 135 mmol/L (137-145); Total Protein 8.2 g/dL (6.3-8.2)
[2024-12-19 17:23] LABS: Partial Thromboplastin Time 32.1 Seconds (22.3-36.8)
[2024-12-19 18:28] VITALS: BP 141/99; PULSE 110; RESP 18; TEMP 37.8; O2SAT 99
--- OUTSIDE RECORDS SUMMARY | 2024-12-19 19:12 | XMS_ITS | Referral Summary ---
Author Organization [facility] Address [address] [place] [address] Care Team Providers Care Hydrologic Modeler Name Role Phone Jamarcus Varner MD Primary Care Provider [phone] Mata Whelan MD Unavailable [phone] Allergies Active Allergy Reactions Criticality Noted Date Comments Metoclopramide Anxiety Low 04/27/2019 Medications traZODone (DESYREL) 100 mg tabletIndicatio ns:insomnia associated with depression Take 1 tablet (100 mg total) by mouth nightly as needed Active telmisartan (MICARDIS) 80 mg tabletIndicatio ns:hypertension Take 1 tablet (80 mg total) by mouth nightly Active magnesium oxide 400 mg magnesium capsuleIndicati ons:supplement Take 400 mg by mouth senior online marketing manager before breakfast Active multivitamin capsuleIndicati ons:Vitamin Deficiency Prevention Take 1 capsule by mouth senior online marketing manager before breakfast Active HERBAL DRUGS ORALIndications :supplement [...] by your insurance plan, you may purchase Profex [id number]-dvkcrxa. 355 mL 09/03/19 24 Active HYDROcodone-korey taminophen (NORCO) 5-325 mg per tabletIndicatio ns:Pain Take 1-2 tablets by mouth every 4 (four) hours as needed for pain 25 tablet 09/03/19 24 Active polyethylene glycol (MIRALAX) 17 gram/dose bulk powder Take 17 g by mouth daily As needed for constipation or if no bowel movement for over 1 day. May buy [id number]-ectwuas if inadequate coverage by insurance plan. 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 Mesh N/A: Esophagus Davol Inc/C R Bard 05/12/2025 [id number] / / [id number] [employer] [id number] Wilfredo .062in 9in 1 Trocar Smooth Wire Fixation - S0 - [id number] Implanted:Qty: 1 on 05/24/2019 by Diana Thomson MD at [facility] Wire Left: Foot [employer] [id number] / 0 / Screw Bone 3mm 32mm Prostep Cydney Ti Aluminum Vanadium F/T - [id number] Implanted:Qty: 1 on 07/12/2021 by Oli Navarrete MD at [facility] Right: First Toe [employer] 09/27/2028 [id number] / / [employer] 1600-962tns Wilfredo .062in 9in Style 1 Wire Fixation Stainless Steel - [id number] Implanted:Qty: 4 on 07/12/2021 by Oli Navarrete MD at [facility] Right: First Toe [employer] [id number] S / / Description:TOES 2-5 Explanted Type Area Janitorial Tech Device Identifier Shelf Expiration Date Model / Serial / Lot [employer] [id number] Wilfredo .062in 9in 1 Trocar Smooth Wire Fixation - [id number] Explanted:Qty: 1 on 05/24/2019 by Diana Thomson MD at [facility] Wire Left: Foot [employer] [id number] / / Description:0.45 provisional fixation [employer] [id number] Wilfredo .045in 9in 2 Trocar Style 2 End Orthopedic Wire - S0 - [id number] Explanted:Qty: 4 on 05/24/2019 by Diana Thomson MD at [facility] Wire Left: Foot [employer] [id number] / 0 / Wire Fxatn .9mm 150mm Wilfredo Trocar Blunt Strl - [id number] Explanted:Qty: 2 on 07/12/2021 at [facility] Right: First Toe [employer] 12/26/2026 [id number] / / Insurance [facility] ACCESS CHOICE [employer] [place] [employer] [place] Advance Directives For more information, please contact: [phone] * Full Code (Latest Code Status on File) Date Activated Date Inactivated Comments 09/01/2023 4:19 PM 09/03/2023 4:38 PM Care Teams Hydrologic Modeler Relationship Specialty Start Date End Date Jamarcus Varner MD PCP - General Family Medicine 11/10/18 Mata Whelan MD Consulting Physician General Surgery 09/03/23
--- OUTSIDE RECORDS SUMMARY | 2024-12-19 19:12 | XMS_ITS | Clinical Summary ---
Author Organization [facility] Care Team Providers Care Boring Machine Operator Name Role Phone Unavailable Primary Care Provider [...]
--- OUTSIDE RECORDS SUMMARY | 2024-12-19 19:12 | XMS_ITS | Clinical Summary ---
Author Organization [facility] Address [address] [place] [address] Care Team Providers Care Fish And Wildlife Scientific Aid Name Role Phone Jamarcus Varner MD Primary Care Provider [phone] Social History Tobacco Use Types Packs/Day Years [...] age to complete this topic Insurance MEDICARE Member Subscriber Plan / Payer (Ef fective 2023-Present) Name:Toni Mazariegos Relation to Subscriber:Self Name:Toni Mazariegos Payer ID:Not on file Group ID:Not on file Type:[employer] Address: ATTN [facility] [address] [place] [id number] [facility] Member Subscriber Plan / Payer (Ef fective for All Dates) Name:Toni Mazariegos Relation to Subscriber:Self Name:Toni Mazariegos Payer ID:Not on file Group ID:Not on file Type:[employer] Address: [address] [place] [address] Care Teams Fish And Wildlife Scientific Aid Relationship Specialty Start Date End Date Jamarcus Varner MD [address] [facility] [address] [address] PCP - General FAMILY PRACTICE 05/12/23
--- OUTSIDE RECORDS SUMMARY | 2024-12-19 19:12 | XMS_ITS | Clinical Summary ---
Author Organization [facility] Address [address] [place] [address] Care Team Providers Care Suction Drum Drier Operator Name Role Phone Jamarcus Varner MD Primary Care Provider [phone] Mata Whelan MD Unavailable [phone] Allergies Active Allergy Reactions Criticality Noted Date Comments Metoclopramide Anxiety Low 04/27/2019 Medications traZODone (DESYREL) 100 mg tabletIndicatio ns:insomnia associated with depression Take 1 tablet (100 mg total) by mouth nightly as needed Active telmisartan (MICARDIS) 80 mg tabletIndicatio ns:hypertension Take 1 tablet (80 mg total) by mouth nightly Active magnesium oxide 400 mg magnesium capsuleIndicati ons:supplement Take 400 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 355 mL 09/03/19 24 Active HYDROcodone-korey taminophen (NORCO) 5-325 mg per tabletIndicatio ns:Pain Take 1-2 tablets by mouth every 4 (four) hours as needed for pain 25 tablet 09/03/19 24 Active polyethylene glycol (MIRALAX) 17 gram/dose bulk powder Take 17 g by mouth daily As needed for constipation or if no bowel movement for over 1 day. May buy wssj-aqw-vowccqm if inadequate coverage by insurance plan. 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 Gender Identity Not on file Sexual Orientation [...] 03/27/2030, 12/02/2019 Medical Devices Implanted Type Area Aged Or Disabled Carer Device Identifier Shelf Expiration Date Model / Serial / Lot Davol Inc/C R Bard Phasix Sepra 4x4in Monofilament Resorbable Square Mesh Surgical [id number] - [id number] Implanted:Qty: 1 on 09/01/2023 by Mata Whelan MD at [facility] Mesh N/A: Esophagus [employer] Inc/C R Bard 05/12/2025 [id number] / / [id number] [employer] [id number] Wilfredo .062in 9in 1 Trocar Smooth Wire Fixation - S0 - [id number] Implanted:Qty: 1 on 05/24/2019 by Diana Thomson MD at [facility] Left: Foot [employer] [id number] / 0 / Screw Bone 3mm 32mm Prostep Cydney Ti Aluminum Vanadium F/T - [id number] Implanted:Qty: 1 on 07/12/2021 by Oli Navarrete MD at [facility] Right: First Toe [employer] 09/27/2028 [id number] / / [employer] 1600-962tns Wilfredo .062in 9in Style 1 Wire Fixation Stainless Steel - [id number] Implanted:Qty: 4 on 07/12/2021 by Oli Navarrete MD at [facility] Right: First Toe [employer] [id number] S / / Description:TOES 2-5 Explanted Type Area Aged Or Disabled Carer Device Identifier Shelf Expiration Date Model / Serial / Lot [employer] [id number] Wilfredo .062in 9in 1 Trocar Smooth Wire Fixation - [id number] Explanted:Qty: 1 on 05/24/2019 by Diana Thomson MD at [facility] Wire Left: Foot [employer] [id number] / / Description:0.45 provisional fixation [employer] [id number] Wilfredo .045in 9in 2 Trocar Style 2 End Orthopedic Wire - S0 - [id number] Explanted:Qty: 4 on 05/24/2019 by Diana Thomson MD at [facility] Wire Left: Foot [employer] [id number] / 0 / Wire Fxatn .9mm 150mm Wilfredo Trocar Blunt Strl - [id number] Explanted:Qty: 2 on 07/12/2021 at [facility] Right: First Toe [employer] 12/26/2026 [id number] / / [place] [address] [address] [employer] CHOICE MEDICARE [employer] [place] [employer] [place] Advance Directives For more information, please contact: [phone] * Full Code (Latest Code Status on File) Date Activated Date Inactivated Comments 09/01/2023 4:19 PM 09/03/2023 4:38 PM Care Teams Suction Drum Drier Operator Relationship Specialty Start Date End Date Jamarcus Varner MD PCP - General Family Medicine 11/10/18 Mata Whelan MD Consulting Physician General Surgery 09/03/23
[2024-12-19 19:25] VITALS: BP 162/98; PULSE 106; RESP 20; TEMP 37.1; O2SAT 99
[2024-12-19 19:36] LABS: Add Urine Microscopic? NO; Appearance Urine Clear (Clear); Glucose Urine UA Negative (Negative); Leukocyte Esterase Ur Negative LEU/UL (Negative); Nitrate Urine Negative (Negative); Specific Grav Ur 1.008 (1.001-1.035)
--- NOTE | 2024-12-19 20:04 | PC.NURSE ---
CT called this filing writer at this time stating pt was in CT and requesting antiemetics. Ordered zofran pulled and pt medicated in CT at this time.
[2024-12-19] MEDS: MORPHINE SULFATE (*CRX) 2 MG/ML INJ IV PUSH (20:12)
[2024-12-19] MEDS: ONDANSETRON INJ 4 MG/2 ML VIAL IV PUSH (20:13)
[2024-12-19] MEDS: SODIUM CHLORIDE 0.9% IV 1,000 ML 999 ML IV CONT ×2 (20:13→23:29)
[2024-12-19] MEDS: PIPERACILLIN/TAZOBACTAM SOD 4.5 GM in SODIUM CHLORIDE 0.9% IV 100 ML 200 ML IVPB (21:04)
[2024-12-19 21:06] VITALS: BP 160/92; PULSE 101; RESP 15; O2SAT 98
--- NOTE | 2024-12-19 23:15 | ADMGEN ---
This patient, Toni Mazariegos, was admitted to 3 [facility] Surg Room 319-01. Patient/family oriented to hospital policies and general routines including ID bracelet, bed and alarms, visiting hours, pain management, procedures, bathroom and other care routines, personal items, smoking policy, room service/diet, and visiting hours. Information on how to activate the Rapid Response Team has been discussed. Patient/Family are encouraged to report perceived risks to care and to ask questions if they do not understand what they are told or what they should do.
[2024-12-19] MEDS: TELMISARTAN 40 MG TABLET 80 MG PO (23:28)
[2024-12-19] MEDS: SODIUM CHLORIDE 0.9% IV 1,000 ML 125 ML IV CONT (23:36)
--- NOTE | 2024-12-19 23:50 | P.HP_ITS ---
H&P: HPI History of Present Illness Date/Time: 12/19/24 23:50 Chief Complaint: Abdominal distension and fever for 4 days Narrative: 64-year-old male with a past medical history of hiatal hernia status post Aviva fundoplication, GERD with subsequent Calhoun's esophagus, essential hypertension is obstructive sleep apnea and obesity who presented to the ER from his primary care physician's office due to abdominal distension and fever for 4 days. The patient reports that he and his returned from vacation on [facility] where they visited family. The following day he noted abdominal distension and discomfort associated with some loose stools. He had overall poor appetite and fevers and chills. He reported that his temperature ranged from 99.1 not up to 101.7. He was having chills and profuse sweating. He would have intermittent 4/10 pressure-like sensation in the upper abdomen when he would try to eat or drink anything. He has had associated nausea and vomiting. He denies any hematochezia or melena. He has been having fatigue. He denies any ill contacts. In the ER contrasted CT of the abdomen pelvis was ordered and demonstrated acute cholecystitis. Patient was afebrile but mildly tachycardic and had elevated white count at 12.7, borderline hyponatremia and mildly elevated bilirubin at 1.4 with ALT of 95. Patient was started on empiric antibiotic therapy with Zosyn. Patient was admitted as observation for IV antibiotics and evaluation by General surgery. Review of Systems 2 Review of Systems: 12 systems were reviewed with pertinent positives and negatives per HPI. Except as documented in the HPI, all other systems were reviewed and are negative. [facility] Past Medical History Medical History (Updated 12/19/24 @ 23:09 by Marian Elizalde DO) Hiatal hernia Eosinophilic esophagitis Malignant melanoma Chronic sinusitis, unspecified Alcoholism with alcohol dependence Calhuon esophagus Iron deficiency anemia Prediabetes Adjustment disorder with anxious mood Obesity (BMI 30.0-34.9) Colon polyps Hammertoe of left foot Essential (primary) hypertension Moderate persistent reactive airway disease with wheezing without complication Obstructive sleep apnea Surgical History Surgical History (Updated 12/19/24 @ 23:09 by Marian Elizalde DO) History of colonoscopy with polypectomy S/P laparoscopic hernia repair S/P repair of paraesophageal hernia History of fundoplication H/O sinus surgery History of bunionectomy of left great toe Family History Family History Father Patient's father is Family history of cardiovascular disease Family history of lung cancer Family history of congestive heart failure Mother Patient's mother is Family history of malignant neoplasm of esophagus Sibling Patient's brother is Family history of malignant neoplasm of male breast Other Family history of alcoholism Hypertension No family history of malignant neoplasm Social History Social History (Updated 12/20/24 @ 06:41 by Marian Elizalde DO) Smoking packs per day: 1 Smoking cigarettes per day: 20.0 Years smoked: 10 Smoking pack-years: 10.00 Smoking status: Never smoker Tobacco type: cigarettes Second hand tobacco smoke exposure: No Smoking end date: 06/15/92 Alcohol intake: never Drinks per week: 21 Substance use: never Substance use type: does not use Lack of Transportation: No Lack of Food: Never True Current Housing: I Have Housing Concerned About Future Housing: No Difficulty Paying Gas/Electric Bills: No Difficulty Paying for Meds: No Currently Unemployed: No Education: Master's Degree or Higher Difficulty w/ Childcare or Family Care: No Living arrangements: with family Additional living arrangements comments: He lives with his . A.m. 1 daughter. He used to drink 20 alcoholic beverages a week but stopped drinking alcohol in 2022 when he had is Aviva fundoplication. He used to smoke a pack of cigarettes per day for 20 years. He quit smoking around age 38. 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 Gender identity (if verbalized by the patient): Male Spiritual care concerns: No Meds Home Medications and Allergies Home Medications ?Medication ?Instructions ?Recorded ?Confirmed ?Type CPAP #1 ea 05/11/23 10/26/24 Rx omeprazole 40 mg capsule,delayed 40 mg PO DAILY 07/01/23 12/19/24 History release ondansetron 4 mg disintegrating 4 mg PO Q8H 04/28/24 12/19/24 History tablet telmisartan 80 mg tablet 80 mg PO HS 12/19/24 12/19/24 History trazodone 100 mg tablet 100 mg PO HS 12/19/24 12/19/24 History Allergies Allergy/AdvReac Type Severity Reaction Status Date / Time amlodipine Allergy Severe Swelling Verified 12/19/24 13:52 metoclopramide AdvReac Intermediate Anxiety Verified 12/19/24 13:52 Vital Signs Vital Signs - 24 hr 12/19/24 15:46 12/19/24 18:28 12/19/24 19:25 Temperature 97.9 F 100.1 F H 98.8 F Pulse Rate 115 H 110 H 106 H Respiratory Rate 20 18 20 Blood Pressure 148/97 H 141/99 H 162/98 H Pulse Oximetry 100 99 99 Oxygen Delivery Room Air Room Air 12/19/24 21:06 Temperature Pulse Rate 101 H Respiratory Rate 15 Blood Pressure 160/92 H Pulse Oximetry 98 Oxygen Delivery Exam 2 Narrative: Weight 115.3 kg BMI 30.9 Const: Other: Obese, no acute distress, appears stated age HENMT: Other: Mucous membranes are tacky, crowded posterior oropharynx, no oral pharyngeal erythema Eyes: Other: Pupils are equal and reactive, no scleral icterus Neck: Other: Large neck circumference, no JVD, no thyromegaly Resp: Other: Clear to auscultation bilaterally, no increased work of breathing Cardio: Other: Sinus tachycardia, 2+ bilateral radial pedal pulses, no murmur GI: Other: Significantly distended, nontender, positive bowel sounds Skin: Other: No jaundice, no pallor, hot to touch Neuro: Other: Alert oriented, speech is clear, no facial asymmetry, no localizing neurologic deficits noted during the course of conversation Extrem: Other: No clubbing, cyanosis or edema Psych: Other: Appropriate mood and affect, pleasant and cooperative, judgment and insight intact H&P: Results Labs Labs: Laboratory Tests 12/19/24 17:03 12/19/24 17:03 12/19/24 12/19/24 17:03 18:55 WBC 12.7 H RBC 4.91 Hgb 14.8 Hct 43.4 MCV 88.4 MCH 30.1 MCHC 34.1 RDW 11.7 Plt Count 184 MPV 10.1 Immature Gran % (Auto) 0.4 Neut % (Auto) 78.3 H Lymph % (Auto) 10.9 L Dale % (Auto) 9.9 H Eos % (Auto) 0.3 Baso % (Auto) 0.2 Lymph # (Auto) 1.38 Dale # (Auto) 1.3 H Eos # (Auto) 0.0 Baso # (Auto) 0.0 Abs Immat Gran (auto) 0.05 H Absolute Neuts (auto) 9.9 H Absolute Nucleated RBC 0.000 Nucleated RBC % 0.0 PT 14.4 INR 1.1 APTT 32.1 Sodium 135 L Potassium 3.6 Chloride 101 Carbon Dioxide 24 Anion Gap 10 BUN 12 Creatinine 0.74 Estim Creat Clear Calc 118 Estimated GFR > 60 Glucose 109 Calcium 9.0 Total Bilirubin 1.4 H AST 43 ALT 95 H Alkaline Phosphatase 122 Total Protein 8.2 Albumin 4.2 Lipase 50 Urine Color Yellow Urine Appearance Clear Urine pH 6.5 Ur Specific [place] 1.008 Urine Protein Negative Urine Glucose (UA) Negative Urine Ketones Negative Ur Blood (Man) Negative Urine Nitrate Negative Urine Bilirubin Negative Urine Urobilinogen 1.0 Leukocyte Esterase Rfl Negative Impressions Chest/Abdomen/Pelvis CT 12/19/24 20:14 IMPRESSION: Cardiomegaly with trace pericardial fluid. Severe acute cholecystitis. Mild intra and extrahepatic bile duct dilation, with inflammatory changes of the first portion of the duodenum and extrahepatic ducts, presumably secondary to the gallbladder process. No obstructing biliary stone or mass detected. Bladder wall thickening, may be secondary to cystitis or incomplete distention/chronic outlet obstruction. Assessment and Plan Assessment and plan (1) Acute cholecystitis: Code(s): K81.0 - Acute cholecystitis Status: Acute (2) Essential (primary) hypertension: Code(s): I10 - Essential (primary) hypertension Status: Acute (3) Obstructive sleep apnea: Code(s): G47.33 - Obstructive sleep apnea (adult) (pediatric) Status: Acute Plan Patient presents with acute cholecystitis noted on CT with reported fevers at home. However patient is afebrile here but is mildly tachycardic with mild leukocytosis. Patient meets SIRS criteria. Will continue Zosyn with pharmacy to dose. Patient received 1 L fluid bolus in the ER will given additional 1 L fluid bolus and will increase maintenance fluids to 125 mL an hour. Will provide p.r.n. pain medications with morphine 4 mg q.4 hours. And Zofran as needed. General surgery has been consulted. Patient is NPO except for meds with sips. Patient does have history of essential hypertension blood pressures are moderately elevated. For this is likely due to pain. However also patient does take his antihypertensives at night. Will give the patient is home angiotensin receptor ruben with a supple water. Will also provide patient with his home trazodone as anxiety may be playing a component is elevated blood pressure. Will continue patient's home PPI therapy but will transition to IV given acute process. MEDICAL DECISION MAKING NARRATIVE -Spoke with the ED provider in detail regarding patient's evaluation, workup and management -Patient seen and examined at bedside -Collaborated with patient's nurse at the bedside in detail and addressed all concerns -Labs, electrolytes, radiology, investigations and test results reviewed -ED/Consult/Nursing/Ancilliary notes on the chart reviewed and appreciated -Spoke with patient/family at the bedside and all questions answered. Quality VTE Prophylaxis VTE prophylaxis: mechanical ordered (SCDs) Hospitalist MIPS Advance Care Plan I have confirmed that the patient's Advanced Care Plan is present, code status is documented, or surrogate decision maker is listed in patient medical record.: Yes Medication Reconciliation I have utilized all available resources to obtain, update and review the patients current medications (includes all prescriptions, OTC, herbals, cannabis, and nutritional supplements).: Yes
[2024-12-20] VITALS (7 sets, daily range): BP systolic 118–138; BP diastolic 54–88; PULSE 86–103; RESP 12–18; TEMP 36.6–38.2; O2SAT 96–98
[2024-12-20] MEDS: PIPERACILLN/TAZ 3.375GM/NS50ML 3.375 GM/50 ML BAG IVPB ×4 (02:16→20:39)
[2024-12-20 06:04] LABS: Hematocrit 39.2 % (42.0-52.0); Hemoglobin 12.8 g/dL (14.0-18.0); Immature Granulocyte Percent A 1.1 % (0-0.5); Lymphocytes Absolute Auto 1.39 K/mm3 (0.9-3.2); Mean Corpuscular HGB Conc 32.7 g/dl (32-36); Mean Corpuscular Hemoglobin 30.0 pg (26-34); Mean Corpuscular Volume 91.8 fl (80-100); Nucleated Red Blood Cells Absolute Auto 0.000 K/mm3 (0.0-0.012); Nucleated Red Blood Cells Perc 0.0 % (0.0-0.2); Platelet Count Result 155 k/mm3 (150-375); Red Blood Count 4.27 M/mm3 (4.6-6.20); White Blood Count 10.0 K/mm3 (4.5-10.0)
[2024-12-20 06:18] LABS: Alanine Aminotransferase 67 U/L (6-50); Albumin Level 3.5 g/dL (3.5-5.1); Alkaline Phosphatase 105 U/L (38-126); Anion Gap 8 mmol/L (4-12); Aspartate Amino Transferase 30 U/L (17-59); Bilirubin,Total 1.5 mg/dL (0.2-1.3); Blood Urea Nitrogen 11 mg/dL (9-20); Calcium 8.5 mg/dL (8.4-10.2); Carbon Dioxide 26 mmol/L (22-30); Chloride 104 mmol/L (98-107); Estimated CRCL calculation 101 ml/min; Estimated Glomerular Filt Rate > 60; Glucose 102 mg/dL (65-110); Potassium 3.7 mmol/L (3.4-5.0); Sodium 138 mmol/L (137-145); Total Protein 6.8 g/dL (6.3-8.2)
[2024-12-20] MEDS: PANTOPRAZOLE SODIUM IV 40 MG VIAL IV PUSH (09:11)
[2024-12-20] MEDS: SODIUM CHLORIDE 0.9% IV 1,000 ML 125 ML IV CONT (10:21)
--- NOTE | 2024-12-20 10:44 | PM.CNGS ---
Assessment and Plan Assessment and plan (1) Acute cholecystitis: Code(s): K81.0 - Acute cholecystitis Status: Acute Assessment and Plan: The patient has severe acute calculous cholecystitis. His gallbladder is severely inflamed on CT and he has had symptoms for 6 days at this point. He seems to be improving with IV antibiotics and is having minimal RUQ pain this morning. With his length of symptoms, surgery would be difficulty and come with increased risks given the expected amount of inflammation. Agree with GI consultation and MRCP today. Will decide on timing of surgery depending on MRCP results and how the patient is progressing. Discussed this with the patient in detail. Continue IV Zosyn. Okay from a surgical standpoint to start the patient on a clear liquid diet this afternoon after the MRCP if okay with GI. (2) Sepsis: Code(s): A41.9 - Sepsis, unspecified organism Status: Acute Assessment and Plan: Tachycardia, fever, and leukocytosis on admission. Likely secondary to a biliary source, involving his acute cholecystitis vs cholangitis vs combination. Continue IV Zosyn and IV fluid resuscitation. Tachycardia resolved and he is afebrile this morning. See plan above regarding his gallbladder. (3) Elevated bilirubin: Code(s): R17 - Unspecified jaundice Status: Acute Assessment and Plan: Mildly elevated bilirubin up to 1.5 today. LFTs were normal on previous labs in the past few years. This could be related to his severe acute cholecystitis vs choledocholithiasis vs other etiology. GI consulted and MRCP ordered. See plan above. (4) Obstructive sleep apnea: Code(s): G47.33 - Obstructive sleep apnea (adult) (pediatric) Status: Acute Assessment and Plan: Compliant with CPAP. Brought his in from home. (5) Essential (primary) hypertension: Code(s): I10 - Essential (primary) hypertension Status: Acute Plan I have discussed the patient's case and plan of care with Dr. Sears. Thank you for allowing us to see the patient in consultation and we will continue to follow along with you. History of Present Illness Consult details Consult date: 12/20/24 Reason for consult: other (Acute cholecystitis) Requesting physician: Marian Elizalde, Narrative: This is a 64-year-old man with history of malignant melanoma s/p excision 2 years ago, HTN, RODOLFO compliant with CPAP, who we have been asked to see in surgical consultation for acute cholecystitis. He reportedly had a large high fat meal Thursday evening that included he a barnard cheeseburger. He woke up morning with bloating in the epigastric area with pressure in this area. He mostly complains of generalized malaise, chills, and feeling feverish. He initially thought he had the flu. He reports poor appetite and was only taking in liquids to try to stay hydrated. He continued to have generalized malaise, chills, generalized weakness, and lethargy over the next 2 days. Thursday, he took an [id number] COVID and influenza test, which was negative. His symptoms persisted and yesterday he called his PCP and was seen in the office. They directed him to the ED. In the ED, he was febrile and tachycardic. [place] [address], total bilirubin 1.4, ALT 95, and AST and alk-phos normal. Lipase normal. CT scan of the chest, abdomen, and pelvis showed cardiomegaly with trace pericardial fluid, severe acute cholecystitis with cholelithiasis, mild intra and extrahepatic bile duct dilation with inflammatory changes of the first portion of the duodenum and extrahepatic ducts presumably secondary to the gallbladder process. No obstructing biliary stone or mass detected. Bladder wall thickening, may be secondary to cystitis or incomplete distension/chronic outlet obstruction. UA normal. The patient was admitted to the hospitalist service and started on IV Zosyn. He is afebrile this morning and his tachycardia resolved. White blood cell count down to 10,000 today. He still reports some mild right upper quadrant pain, which started in the past few days. He is not feeling nauseous. He has not had any nausea or vomiting, just poor appetite over the past few days. He reports loose stools that he attributed to only taking in liquids for the past 5 or 6 days. Denies dark urine, jaundice, or acholic stools. Review of Systems Review of Systems: All systems reviewed & are unremarkable except as noted in HPI and below [facility] Past Medical History Medical History Hiatal hernia Eosinophilic esophagitis Malignant melanoma Chronic sinusitis, unspecified Alcoholism with alcohol dependence Calhoun esophagus Iron deficiency anemia Prediabetes Adjustment disorder with anxious mood Obesity (BMI 30.0-34.9) Colon polyps Hammertoe of left foot Essential (primary) hypertension Moderate persistent reactive airway disease with wheezing without complication Obstructive sleep apnea Surgical History Surgical History History of colonoscopy with polypectomy S/P repair of paraesophageal hernia Robotic assisted laparoscopic paraesophageal hernia repair H/O sinus surgery History of bunionectomy of left great toe Family History Family History Father Patient's father is Family history of cardiovascular disease Family history of lung cancer Family history of congestive heart failure Mother Patient's mother is Family history of malignant neoplasm of esophagus Sibling Patient's brother is Family history of malignant neoplasm of male breast Other Family history of alcoholism Hypertension No family history of malignant neoplasm Social History Social History Smoking packs per day: 1 Smoking cigarettes per day: 20.0 Years smoked: 10 Smoking pack-years: 10.00 Smoking status: Never smoker Tobacco type: cigarettes Second hand tobacco smoke exposure: No Smoking end date: 06/15/92 Alcohol intake: never Drinks per week: 21 Substance use: never Substance use type: does not use Lack of Transportation: No Lack of Food: Never True Current Housing: I Have Housing Concerned About Future Housing: No Difficulty Paying Gas/Electric Bills: No Difficulty Paying for Meds: No Currently Unemployed: No Education: Master's Degree or Higher Difficulty w/ Childcare or Family Care: No Living arrangements: with family Additional living arrangements comments: He lives with his . A.m. 1 daughter. He used to drink 20 alcoholic beverages a week but stopped drinking alcohol in 2022 when he had is Aviva fundoplication. He used to smoke a pack of cigarettes per day for 20 years. He quit smoking around age 38. 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 Gender identity (if verbalized by the patient): Male Spiritual care concerns: No Meds Home Medications and Allergies Home Medications ?Medication ?Instructions ?Recorded ?Confirmed ?Type CPAP #1 ea 05/11/23 10/26/24 Rx omeprazole 40 mg capsule,delayed 40 mg PO DAILY 07/01/23 12/19/24 History release ondansetron 4 mg disintegrating 4 mg PO Q8H 04/28/24 12/19/24 History tablet telmisartan 80 mg tablet 80 mg PO HS 12/19/24 12/19/24 History trazodone 100 mg tablet 100 mg PO HS 12/19/24 12/19/24 History Allergies Allergy/AdvReac Type Severity Reaction Status Date / Time amlodipine Allergy Severe Swelling Verified 12/19/24 13:52 metoclopramide AdvReac Intermediate Anxiety Verified 12/19/24 13:52 Vital Signs Vital Signs - 24 hr 12/19/24 15:46 12/19/24 18:28 12/19/24 19:25 Temperature 97.9 F 100.1 F H 98.8 F Pulse Rate 115 H 110 H 106 H Respiratory Rate 20 18 20 Blood Pressure 148/97 H 141/99 H 162/98 H Pulse Oximetry 100 99 99 Oxygen Delivery Room Air Room Air 12/19/24 21:06 12/20/24 00:08 12/20/24 00:14 Temperature Pulse Rate 101 H 101 H 103 H Respiratory Rate 15 15 Blood Pressure 160/92 H Pulse Oximetry 98 98 98 Oxygen Delivery Room Air CPAP 12/20/24 04:43 12/20/24 06:00 Temperature 97.8 F Pulse Rate 100 97 Respiratory Rate 12 Blood Pressure 119/57 L Pulse Oximetry 98 96 Oxygen Delivery CPAP Exam Const: General: comfortable and no acute distress Nutritional Appearance: average body habitus Orientation/consciousness: patient oriented x3 HENMT: Head: normocephalic and atraumatic Ears: hearing grossly normal bilaterally Mouth: Yes moist mucous membranes Eyes: General: appearance normal, both eyes and all related structures Pupils: Equal, round and reactive pupils present Neck: Neck: normal visual inspection and full ROM Resp: Effort & Inspection: no respiratory distress Auscultation: clear to auscultation bilaterally Cardio: Rate: regular rate Rhythm: regular rhythm Peripheral pulses: Peripheral pulses 2+ throughout GI: Inspection: non-distended and scar (Small port site scars) GI Palp: Yes Soft to palpation, Yes Tenderness to palpation present (GI) (Right upper quadrant), No Guarding due to palpation present (GI), Yes No hepatosplenomegaly present, No Hernia present (Diastasis recti noted) and No Rebound tenderness present Auscultation: normal bowel sounds Rectal Exam: deferred Skin: General skin exam: normal color Neuro: General: moves all extremities and no focal motor deficits Speech: normal speech Motor exam (neuro): 5/5 motor strength present throughout Extrem: General: normal to inspection and no edema Psych: Mental Status: mental status grossly normal Attitude: cooperative Insight: Good insight present (Psych) Judgement: Good judgement present (Psych) Results Labs 12/20/24 05:41 12/20/24 05:41 Labs: Abnormal lab results 12/19/24 12/20/24 Range/Units 17:03 05:41 WBC 12.7 H (4.5-10.0) K/mm3 RBC 4.27 L (4.6-6.20) M/mm3 Hgb 12.8 L (14.0-18.0) g/dL Hct 39.2 L (42.0-52.0) % Immature Gran % (Auto) 1.1 H (0-0.5) % Neut % (Auto) 78.3 H (45.5-73.1) % Lymph % (Auto) 10.9 L 13.9 L (18.3-44.2) % [place] % (Auto) 9.9 H 12.4 H (2.6-8.5) % [place] # (Auto) 1.3 H 1.2 H (0.1-0.6) K/mm3 Abs Immat Gran (auto) 0.05 H 0.11 H (0.00-0.031) K/mm3 Absolute Neuts (auto) 9.9 H 7.2 H (1.3-6.7) K/mm3 Sodium 135 L (137-145) mmol/L Total Bilirubin 1.4 H 1.5 H (0.2-1.3) mg/dL ALT 95 H 67 H (6-50) U/L Diabetes panel 12/19/24 12/20/24 Range/Units 17:03 05:41 Sodium 135 L 138 (137-145) mmol/L Potassium 3.6 3.7 (3.4-5.0) mmol/L Chloride 101 104 (98-107) mmol/L Carbon Dioxide 24 26 (22-30) mmol/L BUN 12 11 (9-20) mg/dL Creatinine 0.74 0.88 (0.7-1.3) mg/dL Glucose 109 102 (65-110) mg/dL Calcium 9.0 8.5 (8.4-10.2) mg/dL AST 43 30 (17-59) U/L ALT 95 H 67 H (6-50) U/L Alkaline Phosphatase 122 105 (38-126) U/L Total Protein 8.2 6.8 (6.3-8.2) g/dL Albumin 4.2 3.5 (3.5-5.1) g/dL Calcium panel 12/19/24 12/20/24 Range/Units 17:03 05:41 Calcium 9.0 8.5 (8.4-10.2) mg/dL Albumin 4.2 3.5 (3.5-5.1) g/dL Pituitary panel 12/19/24 12/20/24 Range/Units 17:03 05:41 Sodium 135 L 138 (137-145) mmol/L Potassium 3.6 3.7 (3.4-5.0) mmol/L Chloride 101 104 (98-107) mmol/L Carbon Dioxide 24 26 (22-30) mmol/L BUN 12 11 (9-20) mg/dL Creatinine 0.74 0.88 (0.7-1.3) mg/dL Glucose 109 102 (65-110) mg/dL Calcium 9.0 8.5 (8.4-10.2) mg/dL Adrenal panel 12/19/24 12/20/24 Range/Units 17:03 05:41 Sodium 135 L 138 (137-145) mmol/L Potassium 3.6 3.7 (3.4-5.0) mmol/L Chloride 101 104 (98-107) mmol/L Carbon Dioxide 24 26 (22-30) mmol/L BUN 12 11 (9-20) mg/dL Creatinine 0.74 0.88 (0.7-1.3) mg/dL Glucose 109 102 (65-110) mg/dL Calcium 9.0 8.5 (8.4-10.2) mg/dL Total Bilirubin 1.4 H 1.5 H (0.2-1.3) mg/dL AST 43 30 (17-59) U/L ALT 95 H 67 H (6-50) U/L Alkaline Phosphatase 122 105 (38-126) U/L Total Protein 8.2 6.8 (6.3-8.2) g/dL Albumin 4.2 3.5 (3.5-5.1) g/dL All other labs normal. Imaging Additional studies: ITS Impressions Chest/Abdomen/Pelvis CT 12/19/24 20:14 IMPRESSION: Cardiomegaly with trace pericardial fluid. Severe acute cholecystitis. Mild intra and extrahepatic bile duct dilation, with inflammatory changes of the first portion of the duodenum and extrahepatic ducts, presumably secondary to the gallbladder process. No obstructing biliary stone or mass detected. Bladder wall thickening, may be secondary to cystitis or incomplete distention/chronic outlet obstruction.
--- NOTE | 2024-12-20 13:27 | P.PNIM_ITS ---
Progress Note: A&P Assessment and Plan (1) Acute cholecystitis: Code(s): K81.0 - Acute cholecystitis Status: Acute (2) Essential (primary) hypertension: Code(s): I10 - Essential (primary) hypertension Status: Acute (3) Obstructive sleep apnea: Code(s): G47.33 - Obstructive sleep apnea (adult) (pediatric) Status: Acute Plan Acute cholecystitis presented with fever CT AP showed severe acute cholecystitis with mild intra and extrahepatic bild duct dilation with inflammaroty chanages of elton firtst portion of the duodenum and extrahepatic ducts. MRCP today GI consulted adn gen surgery following Blood and culture, on Zosyn HTN titrate home meds with clinical course DVT prophylaxis on Sq Lovenox Subjective Date/time seen: 12/20/24 13:27 Interval history: Comfortable at bedside Review of Systems Review of Systems: 12 systems were reviewed with pertinent positives and negatives per HPI. Except as documented in the HPI, all other systems were reviewed and are negative. Exam Narrative: Weight 115.3 kg BMI 30.9 Const: Other: Obese, no acute distress, appears stated age HENMT: Other: Mucous membranes are tacky, crowded posterior oropharynx, no oral pharyngeal erythema Eyes: Other: Pupils are equal and reactive, no scleral icterus Neck: Other: Large neck circumference, no JVD, no thyromegaly Resp: Other: Clear to auscultation bilaterally, no increased work of breathing Cardio: Other: Sinus tachycardia, 2+ bilateral radial pedal pulses, no murmur GI: Other: Significantly distended, nontender, positive bowel sounds Skin: Other: No jaundice, no pallor, hot to touch Neuro: Other: Alert oriented, speech is clear, no facial asymmetry, no localizing neurologic deficits noted during the course of conversation Extrem: Other: No clubbing, cyanosis or edema Psych: Other: Appropriate mood and affect, pleasant and cooperative, judgment and insight intact Objective Data Vital Signs Vital Signs: Vital Signs - 24 hr 12/19/24 15:46 12/19/24 18:28 12/19/24 19:25 Temperature 97.9 F 100.1 F H 98.8 F Pulse Rate 115 H 110 H 106 H Respiratory Rate 20 18 20 Blood Pressure 148/97 H 141/99 H 162/98 H Pulse Oximetry 100 99 99 Oxygen Delivery Room Air Room Air 12/19/24 21:06 12/20/24 00:08 12/20/24 00:14 Temperature Pulse Rate 101 H 101 H 103 H Respiratory Rate 15 15 Blood Pressure 160/92 H Pulse Oximetry 98 98 98 Oxygen Delivery Room Air CPAP 12/20/24 04:43 12/20/24 06:00 12/20/24 08:00 Temperature 97.8 F Pulse Rate 100 97 Respiratory Rate 12 Blood Pressure 119/57 L Pulse Oximetry 98 96 Oxygen Delivery CPAP Room Air Intake/Output Intake/Output: Intake & Output 12/17/24 12/18/24 12/19/24 12/20/24 23:59 23:59 23:59 23:59 Intake Total 1100 2100 Output Total 600 Balance 1100 1500 Meds/Results Medications: Active Medications Generic Name Dose Route Start Last Admin Trade Name Freq PRN Reason Stop Dose Admin Sodium Chloride 1,000 mls @ 125 mls/hr 12/19/24 21:00 12/20/24 10:21 Normal Saline Iv IV CONT 125 mls/hr .Q8H CURTIS Administration Piperacillin/Tazobactam/Dextrose 3.375 gm in 50 mls @ 100 mls/hr 12/20/24 03:00 12/20/24 10:51 Zosyn 3.375 Gm/Ns 50 Ml IVPB Infused Q6H CURTIS Infusion Morphine Sulfate 4 mg 12/19/24 23:16 Morphine Sulfate (*Crx) 4 Mg/Ml Inj IV PUSH Q4H PRN Pain Rated 7-10 Ondansetron HCl 4 mg 12/19/24 23:18 Ondansetron Inj 4 Mg/2 Ml Vial IV PUSH Q4H PRN Nausea And Vomiting Pantoprazole Sodium 40 mg 12/20/24 09:00 12/20/24 09:11 Pantoprazole Sodium Iv 40 Mg Vial IV PUSH 40 mg QAM CURTIS Administration Telmisartan 80 mg 12/19/24 23:05 12/19/24 23:28 Telmisartan 40 Mg Tablet PO 80 mg HS CURTIS Administration Trazodone HCl 100 mg 12/19/24 23:05 12/19/24 23:29 Trazodone Hcl 50 Mg Tablet PO 100 mg HS CURTIS Administration Radiology Results: ITS Impressions Chest/Abdomen/Pelvis CT 12/19/24 20:14 IMPRESSION: Cardiomegaly with trace pericardial fluid. Severe acute cholecystitis. Mild intra and extrahepatic bile duct dilation, with inflammatory changes of the first portion of the duodenum and extrahepatic ducts, presumably secondary to the gallbladder process. No obstructing biliary stone or mass detected. Bladder wall thickening, may be secondary to cystitis or incomplete distention/chronic outlet obstruction. Labs Labs: Laboratory Results - last 24 hr 12/19/24 12/19/24 12/20/24 17:03 18:55 05:41 WBC 12.7 H 10.0 RBC 4.91 4.27 L Hgb 14.8 12.8 L Hct 43.4 39.2 L MCV 88.4 91.8 MCH 30.1 30.0 MCHC 34.1 32.7 RDW 11.7 11.7 Plt Count 184 155 MPV 10.1 10.2 Immature Gran % (Auto) 0.4 1.1 H Neut % (Auto) 78.3 H 71.5 Lymph % (Auto) 10.9 L 13.9 L [place] % (Auto) 9.9 H 12.4 H Eos % (Auto) 0.3 0.8 Baso % (Auto) 0.2 0.3 Lymph # (Auto) 1.38 1.39 [place] # (Auto) 1.3 H 1.2 H Eos # (Auto) 0.0 0.1 Baso # (Auto) 0.0 0.0 Abs Immat Gran (auto) 0.05 H 0.11 H Absolute Neuts (auto) 9.9 H 7.2 H Absolute Nucleated RBC 0.000 0.000 Nucleated RBC % 0.0 0.0 PT 14.4 INR 1.1 APTT 32.1 Sodium 135 L 138 Potassium 3.6 3.7 Chloride 101 104 Carbon Dioxide 24 26 Anion Gap 10 8 BUN 12 11 Creatinine 0.74 0.88 Estim Creat Clear Calc 118 101 Estimated GFR > 60 > 60 Glucose 109 102 Calcium 9.0 8.5 Total Bilirubin 1.4 H 1.5 H AST 43 30 ALT 95 H 67 H Alkaline Phosphatase 122 105 Total Protein 8.2 6.8 Albumin 4.2 3.5 Lipase 50 Urine Color Yellow Urine Appearance Clear Urine pH 6.5 Ur Specific [place] 1.008 Urine Protein Negative Urine Glucose (UA) Negative Urine Ketones Negative Ur Blood (Man) Negative Urine Nitrate Negative Urine Bilirubin Negative Urine Urobilinogen 1.0 Leukocyte Esterase Rfl Negative Quality VTE Prophylaxis VTE prophylaxis: mechanical ordered (SCDs)
--- NOTE | 2024-12-20 14:54 | P.CONGI_ITS ---
Assessment and Plan Assessment and plan (1) Acute cholecystitis: Code(s): K81.0 - Acute cholecystitis Status: Acute Assessment and Plan: The plan is for a cholecystectomy in the near future. We'll decide if a preoperative ERCP is necessary based on the MRCP results. * If the MRCP rules out a common bile duct stone, he roberto have a laparoscopic cholecystectomy with intraoperative cholangiogram .If an IOC reveals a residual stone, we'll arrange a postoperative ERCP for stone extraction. GI Consult Note Consult date/time: 12/20/24 14:54 Reason for consult: Acute cholecystitis HPI: Mr. Toni Mazariegos is a 64-year-old male who presents with acute cholecystitis. He was in his usual state of health until 5 days ago when he developed progressively worsening, severe right upper quadrant/epigastric pain, associated with a 101?F fever. Due to persistent symptoms, he presented to the ED where he was found to have leukocytosis (WBC 12.7) and a CT scan demonstrating acute cholecystitis with mild intra- and extrahepatic biliary dilatation. His admission labs showed total bilirubin 1.4, AST 43, ALT 95, and alk-phos 122. Today's labs show improvement in liver function tests (total bilirubin 1.5, AST 30, ALT 67, alk-phos 105). He is currently receiving IV Zosyn. An MRCP was performed today, with official results pending. The reason for the consultation is to rule out concomitant choledocholithiasis. Review of Systems 2 Review of Systems: All systems reviewed & are unremarkable except as noted in HPI and below PMFSH Past Medical History Medical History Hiatal hernia Eosinophilic esophagitis Malignant melanoma Chronic sinusitis, unspecified Alcoholism with alcohol dependence Calhoun esophagus Iron deficiency anemia Prediabetes Adjustment disorder with anxious mood Obesity (BMI 30.0-34.9) Colon polyps Hammertoe of left foot Essential (primary) hypertension Moderate persistent reactive airway disease with wheezing without complication Obstructive sleep apnea Surgical History Surgical History History of colonoscopy with polypectomy S/P repair of paraesophageal hernia Robotic assisted laparoscopic paraesophageal hernia repair H/O sinus surgery History of bunionectomy of left great toe Family History Family History Father Patient's father is Family history of cardiovascular disease Family history of lung cancer Family history of congestive heart failure Mother Patient's mother is Family history of malignant neoplasm of esophagus Sibling Patient's brother is Family history of malignant neoplasm of male breast Other Family history of alcoholism Hypertension No family history of malignant neoplasm Social History Social History Smoking packs per day: 1 Smoking cigarettes per day: 20.0 Years smoked: 10 Smoking pack-years: 10.00 Smoking status: Never smoker Tobacco type: cigarettes Second hand tobacco smoke exposure: No Smoking end date: 06/15/92 Alcohol intake: never Drinks per week: 21 Substance use: never Substance use type: does not use Lack of Transportation: No Lack of Food: Never True Current Housing: I Have Housing Concerned About Future Housing: No Difficulty Paying Gas/Electric Bills: No Difficulty Paying for Meds: No Currently Unemployed: No Education: Master's Degree or Higher Difficulty w/ Childcare or Family Care: No Living arrangements: with family Additional living arrangements comments: He lives with his . A.m. 1 daughter. He used to drink 20 alcoholic beverages a week but stopped drinking alcohol in 2022 when he had is Aviva fundoplication. He used to smoke a pack of cigarettes per day for 20 years. He quit smoking around age 38. 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 Gender identity (if verbalized by the patient): Male Spiritual care concerns: No Meds Home Medications and Allergies Home Medications ?Medication ?Instructions ?Recorded ?Confirmed ?Type CPAP #1 ea 05/11/23 10/26/24 Rx omeprazole 40 mg capsule,delayed 40 mg PO DAILY 07/01/23 12/19/24 History release ondansetron 4 mg disintegrating 4 mg PO Q8H 04/28/24 12/19/24 History tablet telmisartan 80 mg tablet 80 mg PO HS 12/19/24 12/19/24 History trazodone 100 mg tablet 100 mg PO HS 12/19/24 12/19/24 History Allergies Allergy/AdvReac Type Severity Reaction Status Date / Time amlodipine Allergy Severe Swelling Verified 12/19/24 13:52 metoclopramide AdvReac Intermediate Anxiety Verified 12/19/24 13:52 Vital Signs Vital Signs - 24 hr 12/19/24 15:46 12/19/24 18:28 12/19/24 19:25 Temperature 97.9 F 100.1 F H 98.8 F Pulse Rate 115 H 110 H 106 H Respiratory Rate 20 18 20 Blood Pressure 148/97 H 141/99 H 162/98 H Pulse Oximetry 100 99 99 Oxygen Delivery Room Air Room Air 12/19/24 21:06 12/20/24 00:08 12/20/24 00:14 Temperature Pulse Rate 101 H 101 H 103 H Respiratory Rate 15 15 Blood Pressure 160/92 H Pulse Oximetry 98 98 98 Oxygen Delivery Room Air CPAP 12/20/24 04:43 12/20/24 06:00 12/20/24 08:00 Temperature 97.8 F Pulse Rate 100 97 Respiratory Rate 12 Blood Pressure 119/57 L Pulse Oximetry 98 96 Oxygen Delivery CPAP Room Air 12/20/24 14:00 Temperature 99.5 F Pulse Rate 90 Respiratory Rate 18 Blood Pressure 138/88 Pulse Oximetry 98 Oxygen Delivery Exam 2 Const: General: cooperative and healthy appearing Resp: Effort & Inspection: normal respiratory effort and able to speak in complete sentences Auscultation: clear to auscultation bilaterally Cardio: Rate: regular rate Rhythm: regular rhythm GI: Inspection: normal to inspection GI Palp: No No hepatosplenomegaly present Auscultation: normal bowel sounds Rectal Exam: deferred Skin: General skin exam: normal color Psych: Appearance: grossly normal Mental Status: mental status grossly normal Results Labs 12/20/24 05:41 12/20/24 05:41 Labs: Short CBC 12/19/24 12/20/24 Range/Units 17:03 05:41 WBC 12.7 H 10.0 (4.5-10.0) K/mm3 Hgb 14.8 12.8 L (14.0-18.0) g/dL Hct 43.4 39.2 L (42.0-52.0) % Plt Count 184 155 (150-375) k/mm3 BMP 12/19/24 12/20/24 17:03 05:41 Sodium 135 L 138 Potassium 3.6 3.7 Chloride 101 104 Carbon Dioxide 24 26 BUN 12 11 Creatinine 0.74 0.88 Glucose 109 102 Calcium 9.0 8.5 Liver Function 12/19/24 12/20/24 Range/Units 17:03 05:41 Total Bilirubin 1.4 H 1.5 H (0.2-1.3) mg/dL AST 43 30 (17-59) U/L ALT 95 H 67 H (6-50) U/L Alkaline Phosphatase 122 105 (38-126) U/L Albumin 4.2 3.5 (3.5-5.1) g/dL Urine 12/19/24 Range/Units 18:55 Urine Color Yellow (Yellow) Urine Appearance Clear (Clear) Urine pH 6.5 (5.0-9.0) Ur Specific [place] 1.008 (1.001-1.035) Urine Protein Negative (Negative) mg/dL Urine Glucose (UA) Negative (Negative) mg/dL
[2024-12-20] MEDS: TELMISARTAN 40 MG TABLET 80 MG PO (20:39)
[2024-12-21] MEDS: SODIUM CHLORIDE 0.9% IV 1,000 ML 125 ML IV CONT (02:35)
[2024-12-21] MEDS: PIPERACILLN/TAZ 3.375GM/NS50ML 3.375 GM/50 ML BAG IVPB ×2 (03:00→09:36)
[2024-12-21 05:51] LABS: Hematocrit 35.6 % (42.0-52.0); Hemoglobin 11.8 g/dL (14.0-18.0); Immature Granulocyte Percent A 0.9 % (0-0.5); Lymphocytes Absolute Auto 0.80 K/mm3 (0.9-3.2); Mean Corpuscular HGB Conc 33.1 g/dl (32-36); Mean Corpuscular Hemoglobin 29.9 pg (26-34); Mean Corpuscular Volume 90.4 fl (80-100); Nucleated Red Blood Cells Absolute Auto 0.000 K/mm3 (0.0-0.012); Nucleated Red Blood Cells Perc 0.0 % (0.0-0.2); Platelet Count Result 143 k/mm3 (150-375); Red Blood Count 3.94 M/mm3 (4.6-6.20); White Blood Count 9.0 K/mm3 (4.5-10.0)
[2024-12-21 06:00] VITALS: BP 121/59; PULSE 88; RESP 18; TEMP 37.6; O2SAT 100
[2024-12-21 06:06] LABS: Alanine Aminotransferase 51 U/L (6-50); Albumin Level 3.3 g/dL (3.5-5.1); Alkaline Phosphatase 110 U/L (38-126); Anion Gap 8 mmol/L (4-12); Aspartate Amino Transferase 28 U/L (17-59); Bilirubin,Total 1.2 mg/dL (0.2-1.3); Blood Urea Nitrogen 10 mg/dL (9-20); Calcium 8.3 mg/dL (8.4-10.2); Carbon Dioxide 23 mmol/L (22-30); Chloride 106 mmol/L (98-107); Estimated CRCL calculation 98 ml/min; Estimated Glomerular Filt Rate > 60; Glucose 106 mg/dL (65-110); Magnesium 2.1 mg/dL (1.6-2.3); Potassium 3.9 mmol/L (3.4-5.0); Sodium 137 mmol/L (137-145); Total Protein 6.5 g/dL (6.3-8.2)
[2024-12-21 08:00] VITALS: O2SAT 98
[2024-12-21] MEDS: ENOXAPARIN 40 MG/0.4 ML SYRINGE SUB-Q (09:37)
[2024-12-21] MEDS: PANTOPRAZOLE SODIUM IV 40 MG VIAL IV PUSH (09:37)
[2024-12-21 10:29] VITALS: O2SAT 98
--- NOTE | 2024-12-21 11:17 | PM.PNGS ---
Progress Note: A&P Assessment and Plan (1) Acute cholecystitis: Code(s): K81.0 - Acute cholecystitis Status: Acute Assessment and Plan: exam largely benign, twin low fat diet, cont abx, ok to dc home c po abx and low fat diet, f/u in 2 wks to schedule interval [place] Subjective Subjective Date/Time Seen: 12/21/24 11:17 Interval history: feels good, twin low fat diet, minimal abd pain/discomfort Review of Systems Review of Systems: All systems reviewed & are unremarkable except as noted in HPI and below Exam Const: General: cooperative, comfortable and no acute distress Resp: Auscultation: clear to auscultation bilaterally Cardio: Rate: regular rate Rhythm: regular rhythm GI: Inspection: normal to inspection and distended GI Palp: Yes abdominal tenderness, Yes Soft to palpation, No Guarding due to palpation present (GI) and No Rigid due to palpation Objective Data Vital Signs Vital Signs: Vital Signs - 24 hr 12/20/24 14:00 12/20/24 21:19 12/20/24 23:45 Temperature 37.5 C 38.2 C H Pulse Rate 90 86 Respiratory Rate 18 18 Blood Pressure 138/88 118/54 L Pulse Oximetry 98 98 97 Oxygen Delivery CPAP 12/21/24 02:40 12/21/24 06:00 12/21/24 10:29 Temperature 37.6 C H Pulse Rate 88 Respiratory Rate 18 Blood Pressure 121/59 L Pulse Oximetry 100 98 Oxygen Delivery CPAP Room Air Intake/Output Intake/Output: Intake & Output 12/18/24 12/19/24 12/20/24 12/21/24 23:59 23:59 23:59 23:59 Intake Total 1100 2940 1890 Output Total 600 350 Balance 1100 2340 1540 Meds/Results Medications: Active Medications Generic Name Dose Route Start Last Admin Trade Name Freq PRN Reason Stop Dose Admin Enoxaparin Sodium 40 mg 12/21/24 09:00 12/21/24 09:37 Enoxaparin 40 Mg/0.4 Ml Syringe SUB-Q 40 mg DAILY CURTIS Administration Sodium Chloride 1,000 mls @ 125 mls/hr 12/19/24 21:00 12/21/24 06:35 Normal Saline Iv IV CONT Not Given .Q8H CURTIS Piperacillin/Tazobactam/Dextrose 3.375 gm in 50 mls @ 100 mls/hr 12/20/24 03:00 12/21/24 09:36 Zosyn 3.375 Gm/Ns 50 Ml IVPB 100 mls/hr Q6H CURTIS Administration Morphine Sulfate 4 mg 12/19/24 23:16 Morphine Sulfate (*Crx) 4 Mg/Ml Inj IV PUSH Q4H PRN Pain Rated 7-10 Ondansetron HCl 4 mg 12/19/24 23:18 Ondansetron Inj 4 Mg/2 Ml Vial IV PUSH Q4H PRN Nausea And Vomiting Pantoprazole Sodium 40 mg 12/20/24 09:00 12/21/24 09:37 Pantoprazole Sodium Iv 40 Mg Vial IV PUSH 40 mg QAM CURTIS Administration Telmisartan 80 mg 12/19/24 23:05 12/20/24 20:39 Telmisartan 40 Mg Tablet PO 80 mg HS CURTIS Administration Trazodone HCl 100 mg 12/19/24 23:05 12/20/24 20:38 Trazodone Hcl 50 Mg Tablet PO 100 mg HS CURTIS Administration Radiology Results: ITS Impressions Chest/Abdomen/Pelvis CT 12/19/24 20:14 IMPRESSION: Cardiomegaly with trace pericardial fluid. Severe acute cholecystitis. Mild intra and extrahepatic bile duct dilation, with inflammatory changes of the first portion of the duodenum and extrahepatic ducts, presumably secondary to the gallbladder process. No obstructing biliary stone or mass detected. Bladder wall thickening, may be secondary to cystitis or incomplete distention/chronic outlet obstruction. MRCP 12/20/24 14:41 IMPRESSION: 1. Cholelithiasis and severe acute cholecystitis with defect in the mucosa at the fundus of the gallbladder with small extraluminal versus more likely intramural abscess at the periphery of the fundus. 2. Mild dilation of the common hepatic duct to 11 mm tapering to normal 6 normal caliber at the common bile duct and with no intrahepatic biliary ductal dilation. No definitive choledocholithiasis. 3. Small sliding-type hiatal hernia with postoperative change of prior Aviva fundoplication. Labs Labs: Laboratory Results - last 24 hr 12/21/24 05:45 WBC 9.0 RBC 3.94 L Hgb 11.8 L Hct 35.6 L MCV 90.4 MCH 29.9 MCHC 33.1 RDW 11.4 L Plt Count 143 L MPV 9.8 Immature Gran % (Auto) 0.9 H Neut % (Auto) 77.6 H Lymph % (Auto) 8.8 L [place] % (Auto) 11.5 H Eos % (Auto) 1.0 Baso % (Auto) 0.2 Lymph # (Auto) 0.80 L [place] # (Auto) 1.0 H Eos # (Auto) 0.1 Baso # (Auto) 0.0 Abs Immat Gran (auto) 0.08 H Absolute Neuts (auto) 7.0 H Absolute Nucleated RBC 0.000 Nucleated RBC % 0.0 Sodium 137 Potassium 3.9 Chloride 106 Carbon Dioxide 23 Anion Gap 8 BUN 10 Creatinine 0.90 Estim Creat Clear Calc 98 Estimated GFR > 60 Glucose 106 Lactic Acid 1.0 Calcium 8.3 L Magnesium 2.1 Total Bilirubin 1.2 AST 28 ALT 51 H Alkaline Phosphatase 110 Total Protein 6.5 Albumin 3.3 L
--- NOTE | 2024-12-21 13:50 | PM.DS ---
DS: Admitting Diagnosis Discharge Date 12/21/24 Admitting Diagnosis Abdominal distension and fever for 4 days DS: Discharge Diagnosis Discharge Diagnosis (1) Acute cholecystitis: Code(s): K81.0 - Acute cholecystitis Status: Acute DS: Summary Hospital Course Hospital Course: 64-year-old male with a past medical history of hiatal hernia status post Aviva fundoplication, GERD with subsequent Calhoun's esophagus, essential hypertension is obstructive sleep apnea and obesity who presented to the ER from his primary care physician's office due to abdominal distension and fever for 4 days. The patient reports that he and his returned from vacation on [facility] where they visited family. The following day he noted abdominal distension and discomfort associated with some loose stools. He had overall poor appetite and fevers and chills. He reported that his temperature ranged from 99.1 not up to 101.7. He was having chills and profuse sweating. He would have intermittent 4/10 pressure-like sensation in the upper abdomen when he would try to eat or drink anything. He has had associated nausea and vomiting. He denies any hematochezia or melena. He has been having fatigue. He denies any ill contacts. In the ER contrasted CT of the abdomen pelvis was ordered and demonstrated acute cholecystitis. Patient was afebrile but mildly tachycardic and had elevated white count at 12.7, borderline hyponatremia and mildly elevated bilirubin at 1.4 with ALT of 95. Patient was started on empiric antibiotic therapy with Zosyn. Patient was admitted as observation for IV antibiotics and evaluation by General surgery. patient was managed of acute cholecystitis, MRCP showed Cholelithiasis with severe acute cholecystitis with abscess. He was on ZOsyn and Blood culture negative so far. Gen surgery evaluated by general surgery and recommended discharging patient for prolonged antibiotics to calm inflammation prior to surgical intervention. Patient discharged today on 12 days Cipro and Flagyl, and will f/u with Gen surgery in 2 weeks for scheduling surgical intervention. F/u with PCP in 3-5 days F/u with Gen surgery as instructed Time Spent with Patient Time attestation: Total time spent providing and/or coordinating discharge services: DS: Data Data Completed and Pending Labs on day of discharge: Labs from last 24 hours 12/21/24 05:45 WBC 9.0 RBC 3.94 L Hgb 11.8 L Hct 35.6 L MCV 90.4 MCH 29.9 MCHC 33.1 RDW 11.4 L Plt Count 143 L MPV 9.8 Immature Gran % (Auto) 0.9 H Neut % (Auto) 77.6 H Lymph % (Auto) 8.8 L [place] % (Auto) 11.5 H Eos % (Auto) 1.0 Baso % (Auto) 0.2 Lymph # (Auto) 0.80 L [place] # (Auto) 1.0 H Eos # (Auto) 0.1 Baso # (Auto) 0.0 Abs Immat Gran (auto) 0.08 H Absolute Neuts (auto) 7.0 H Absolute Nucleated RBC 0.000 Nucleated RBC % 0.0 Sodium 137 Potassium 3.9 Chloride 106 Carbon Dioxide 23 Anion Gap 8 BUN 10 Creatinine 0.90 Estim Creat Clear Calc 98 Estimated GFR > 60 Glucose 106 Lactic Acid 1.0 Calcium 8.3 L Magnesium 2.1 Total Bilirubin 1.2 AST 28 ALT 51 H Alkaline Phosphatase 110 Total Protein 6.5 Albumin 3.3 L Discharge Plan Discharge Attending physician on discharge: Dominga Hamlin Consulting providers: Linda Sears; Valdemar Sotelo Discharging Clinician: Dominga Hamlin Anticipated Discharge Date/Time: 12/21/24 13:47 Patient Disposition: Home Activity: as tolerated Diet: bland and low fat Discharge Instructions: Call to schedule an appointment with Dr. Sears in 2 weeks in our office. [phone] Continue a low fat, bland diet until surgery. network support specialist and complete your antibiotics as prescribed. If you develop worsening/new abdominal pain, fevers, or vomiting, then call the surgeon or return to the ED. Patient Instructions: Antibiotic Form Patient Language: [place]agu[place] Stand Alone Forms: General Discharge Information Follow-up/Referrals: Linda Sears MD [Physician] - 2 Weeks Jamarcus Varner MD [Primary Care Provider] - (F/u with PCP in 3-5 days ) Discharge Medications: New ciprofloxacin HCl 500 mg tablet 500 mg PO Q12H Qty: 20 0RF metronidazole 500 mg tablet 500 mg PO Q8H Qty: 30 0RF Continued ondansetron 4 mg tablet,disintegrating 4 mg PO Q8H trazodone 100 mg tablet 100 mg PO HS Rx Instructions: TAKE 1 TABLET DAILY telmisartan 80 mg tablet 80 mg PO HS Rx Instructions: TAKE 1 TABLET DAILY (DME) CPAP See Rx Instructions .Route .MEDSUPPLY Qty: 1 0RF Rx Instructions: As directed omeprazole 40 mg capsule,delayed release(DR/EC) 40 mg PO DAILY Date of admission: 12/19/24 20:58 Primary Care Provider: Jamarcus Varner Admitting Provider: Marian Elizalde Attending physician on admission: Marian Elizalde Condition: Improved
== END 2024-12-21 14:37 | disposition home or self-care (01) | DRG 446 ==
LOC: ANHED 20:43 → ANH3MEDSUR 22:03
PROVIDERS: Physician Assistant; Admitting Provider Internal Medicine; Emergency Provider Emergency Medicine; PCP Family Medicine; Visit Provider Internal Medicine
DX: K80.00 Calculus of gallbladder with acute cholecystitis without obstruction (principal); K21.9 Gastro-esophageal reflux disease without esophagitis; I10 Essential (primary) hypertension; G47.33 Obstructive sleep apnea (adult) (pediatric); D50.9 Iron deficiency anemia, unspecified; E66.9 Obesity, unspecified; Z85.820 Personal history of malignant melanoma of skin; Z87.891 Personal history of nicotine dependence
CPT/HCPCS: 36415; 71260; 74177; 74183; 76376; 80053; 81003; 83605; 83690; 83735; 85025; 85610; 85730; 87040; 96361; 96374; 96375; 99285; A9270; A9577; J1650; J2270; J2405; J2470; J2543; J7030; Q9967

== ENCOUNTER 2025-01-09 14:23 | Outpatient (CLI) | payer MEDICARE, OTHER, SELFPAY ==
--- NOTE | 2025-01-09 14:28 | ECG_ITS ---
Test Date: 2025-01-09 14:46:42 Measurements Intervals [place] Rate: 62 P: 4 FL: 189 QRS: 20 QRSD: 77 T: 1 QT: 379 QTc: 386 Interpretive Statements SINUS RHYTHM Electronically Signed On 01-10-2025 17:08:51 CDT by David Hanley D.O
--- OUTSIDE RECORDS SUMMARY | 2025-01-09 14:29 | XMS_ITS | Clinical Summary ---
Author Organization [facility] Care Team Providers Care Delivery Rn Name Role Phone Unavailable Primary Care Provider [...]
--- OUTSIDE RECORDS SUMMARY | 2025-01-09 14:29 | XMS_ITS | Referral Summary ---
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 manager before breakfast Active multivitamin capsuleIndicat ions:Vitamin Deficiency Prevention Take 1 capsule by mouth sr. manager before breakfast Active HERBAL DRUGS ORALIndication s:supplement Take 1 tablet by mouth every morning BEET ROOT , Heart Greens , Active melatonin 5 mg tabletIndicati ons:sleep Take 1 tablet (5 mg total) by mouth nightly Active omeprazole (PriLOSEC) 40 mg capsule Take 1 capsule (40 mg total) by mouth every morning Active bran/gum/fib/c el/psyl/kelp/p ec (FIBER 6 ORAL) Take 1 tablet by mouth every morning Activ e vitamin B complex capsule Take 1 capsule by mouth every morning Activ e glucosamine/ch ondr dominguez A sod (OSTEO BI-FLEX ORAL) Take 1 tablet by mouth every morning Activ e cholecalcifero l, vitamin D3, (D3-5000 ORAL) Take 1 tablet by mouth every morning Activ e flaxseed powder Take 1 Dose by mouth every morning Activ e calcium/chondr /collag/glycos am (BEYOND BONE BROTH ORAL) Take 1 Dose by mouth every morning Activ e collagen/bioti n/ascorbic acid (COLLAGEN 1500 PLUS C ORAL) Take 1 tablet by mouth every morning Activ e aluminum hydrox-magnesi um carb 254-237.5 mg/5 mL suspensionIndi cations:Dyspep adi,gastroesop hageal reflux disease,Heartb urn,Hiatal Hernia with Reflux Esophagitis Take 10 mL [...] by your insurance plan, you may purchase ahoyDoc qgky-eyu-auvpemh. 355 mL 09/03/19 24 Active HYDROcodone-ac etaminophen (NORCO) 5-325 mg per tabletIndicati ons:Pain Take 1-2 tablets by mouth every 4 (four) hours as needed for pain 25 tablet 09/03/19 24 Active polyethylene glycol (MIRALAX) 17 gram/dose bulk powder Take 17 g by mouth daily As needed for constipation or if no bowel movement for over 1 day. May buy rlua-xpn-apfxyvu if inadequate coverage by insurance plan. Take with 16 oz of additional water minimum. 238 g 2 09/03/19 24 Active ondansetron (ZOFRAN) 4 mg tabletIndicati ons:Prevention of Post-Operative Nausea and Vomiting Take 1-2 tablets (4-8 mg total) by mouth every 6 (six) hours as needed for nausea or vomiting 40 tablet 3 12/23/19 25 Active prochlorperazi ne (COMPAZINE) 10 mg tabletIndicati ons:Nausea and Vomiting Take 1 tablet (10 mg total) by mouth every 6 (six) hours as needed for nausea or vomiting 30 tablet 3 12/23/19 25 Active ondansetron (ZOFRAN) 4 mg tabletIndicati ons:Prevention of Post-Operative Nausea and Vomiting Take 1-2 tablets (4-8 mg total) by mouth every 6 (six) hours as needed for nausea or vomiting 40 tablet 3 09/03/19 24 025 Discontin ued(Reord er) prochlorperazi ne (COMPAZINE) 10 mg tabletIndicati ons:Nausea and Vomiting Take 1 tablet (10 mg total) by mouth every 6 (six) hours as needed for nausea or vomiting 30 tablet 3 09/03/19 24 025 Discontin ued(Reord er) Active Problems Problem Noted Date Diagnosed Date [...] Pain in joint involving ankle and foot 2 Hammer toe of left foot 03/30/2019 Overview (03/30/2019): Added automatically from request for surgery [id number] Hallux valgus of left foot 03/30/2019 Overview (03/30/2019): Added automatically from request for surgery [id number] Dislocation of MTP joint of left lesser toe(s), init 03/30/2019 Overview (03/30/2019): Added automatically from request for surgery [id number] Immunizations Immunization Administration Dates Next Due Influenza, [...] on file 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 Gender Identity Not on file Sexual Orientation [...] on file Medical Devices Implanted Type Area Service Delivery Supervisor Device Identifier Shelf Expiration Date Model / Serial / Lot Davol Inc/C R Bard Phasix Sepra 4x4in Monofilament Resorbable Square Mesh Surgical [id number] - [id number] Implanted:Qty: 1 on 09/01/2023 by Mata Whelan MD at [facility] Mesh N/A: Esophagus Davol Inc/C R Bard 05/12/2025 [id number] / / [id number] [employer] [id number] Wilfredo .062in 9in 1 Trocar Smooth Wire Fixation - S0 - [id number] Implanted:Qty: 1 on 05/24/2019 by Diana Thomson MD at [facility] Wire Left: Foot [employer] [id number] / 0 / Screw Bone 3mm 32mm Prostep Cydney Ti Aluminum Vanadium F/T - [id number] Implanted:Qty: 1 on 07/12/2021 by Oli Navarrete MD at [facility] [place] Right: First Toe [employer] 09/27/2028 [id number] / / [employer] Instruments 1600-962tns Wilfredo .062in 9in Style 1 Wire Fixation Stainless Steel - [id number] Implanted:Qty: 4 on 07/12/2021 by Oli Navarrete MD at [facility] [place] Right: First Toe [employer] [id number] S / / Description:TOES 2-5 Explanted Type Area Service Delivery Supervisor Device Identifier Shelf Expiration Date Model / Serial / Lot [employer] Instruments [id number] Wilfredo .062in 9in 1 Trocar Smooth Wire Fixation - [id number] Explanted:Qty: 1 on 05/24/2019 by Diana Thomson MD at [facility] Wire Left: Foot [employer] [id number] / / Description:0.45 provisional fixation [employer] [id number] Wilfredo .045in 9in 2 Trocar Style 2 End Orthopedic Wire - S0 - [id number] Explanted:Qty: 4 on 05/24/2019 by Diana Thomson MD at [facility] Wire Left: Foot [employer] [id number] / 0 / Wire Fxatn .9mm 150mm Wilfredo Trocar Blunt Strl - [id number] Explanted:Qty: 2 on 07/12/2021 at [facility] Right: First Toe [employer] 12/26/2026 [id number] / / Insurance Lumi[employer] CHOICE MEDICARE [facility] Advance Directives For more information, please contact: [phone] * Full Code (Latest Code Status on File) Date Activated Date Inactivated Comments 09/01/2023 4:19 PM 09/03/2023 4:38 PM Care Teams Urban Planning Teacher Relationship Specialty Start Date End Date Jamarcus Varner MD PCP - General Family Medicine 11/10/18 Mata Whelan MD Consulting Physician General Surgery 09/03/23
--- OUTSIDE RECORDS SUMMARY | 2025-01-09 14:30 | XMS_ITS | Clinical Summary ---
Author Organization [facility] Address [address] [place] [address] Care Team Providers Care Watermelon Inspector Name Role Phone Jamarcus Varner MD Primary Care Provider [phone] Mata Whelan MD Unavailable [phone] Allergies Active Allergy Reactions Criticality Noted Date [...] ions:supplemen t Take 400 mg by mouth superintendent radio communications before breakfast Active multivitamin capsuleIndicat ions:Vitamin Deficiency Prevention Take 1 capsule by mouth superintendent radio communications before breakfast Active HERBAL DRUGS ORALIndication s:supplement [...] by your insurance plan, you may purchase [employer]soft fxly-opx-vlmjpdd. 355 mL 09/03/19 24 Active HYDROcodone-ac etaminophen (NORCO) 5-325 mg per tabletIndicati ons:Pain Take 1-2 tablets by mouth every 4 (four) hours as needed for pain 25 tablet 09/03/19 24 Active polyethylene glycol (MIRALAX) 17 gram/dose bulk powder Take 17 g by mouth daily As needed for constipation or if no bowel movement for over 1 day. May buy ctak-vpi-sufmibc if inadequate coverage by insurance plan. Take [...] (03/30/2019): Added automatically from request for surgery [id number] Hallux valgus of left foot 03/30/2019 Overview (03/30/2019): Added automatically from request for surgery [id number] Dislocation of MTP joint of left lesser toe(s), init 03/30/2019 Overview (03/30/2019): Added automatically from request for surgery [id number] Encounters Date Type Department Care Team Description 12/22/2024 Orders Only [facility] General & Laparoscopic Surgery [address] [place] [address] Kylie Cruz, ENEDINA Paraesophageal hernia with obstruction but no gangrene (Primary Dx) from Last 3 Months Immunizations Immunization Administration Dates Next Due Influenza, [...] on file 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 Gender Identity Not on file Sexual Orientation [...] Fall Risk Assessment 09/02/2024 09/03/2023 Influenza Vaccine (#1) 2025 03/15/2023 DTaP/Tdap/Td Vaccine (3 - Td or Tdap) 03/27/2030, 12/02/2019 Medical Devices Implanted Type Area Lpn Cma Device Identifier Shelf Expiration Date Model / Serial / Lot Davol Inc/C R Bard Phasix Sepra 4x4in Monofilament Resorbable Square Mesh Surgical [id number] - [id number] Implanted:Qty: 1 on 09/01/2023 by Mata Whelan MD at [facility] Mesh N/A: Esophagus [employer]ol Inc/C R Bard 05/12/2025 [id number] / / [id number] [employer] [id number] Wilfredo .062in 9in 1 Trocar Smooth Wire Fixation - S0 - [id number] Implanted:Qty: 1 on 05/24/2019 by Diana Thomson MD at [facility] Wire Left: Foot [employer] [id number] / 0 / Screw Bone 3mm 32mm Prostep Cydney Ti Aluminum Vanadium F/T - [id number] Implanted:Qty: 1 on 07/12/2021 by Oli Navarrete MD at [facility] [place] Right: First Toe [employer]p-labs 09/27/2028 [id number] / / [employer] 1600-962tns Wilfredo .062in 9in Style 1 Wire Fixation Stainless Steel - [id number] Implanted:Qty: 4 on 07/12/2021 by Oli Navarrete MD at [facility] [place] Right: First Toe [employer] [id number] S / / Description:TOES 2-5 Explanted Type Area Lpn Cma Device Identifier Shelf Expiration Date Model / Serial / Lot [employer] [id number] Wilfredo .062in 9in 1 Trocar Smooth Wire Fixation - [id number] Explanted:Qty: 1 on 05/24/2019 by Diana Thomson MD at [facility] Wire Left: Foot [employer] [id number] / / Description:0.45 provisional fixation [employer] 1600-945 Wilfredo .045in 9in 2 Trocar Style 2 End Orthopedic Wire - S0 - [id number] Explanted:Qty: 4 on 05/24/2019 by Diana Thomson MD at [facility] Wire Left: Foot [employer] [id number] / 0 / Wire Fxatn .9mm 150mm Wilfredo Trocar Blunt Strl - [id number] Explanted:Qty: 2 on 07/12/2021 at [facility] [place] Right: First Toe m2p-labs 12/26/2026 [id number] / / Insurance ANTHEM ACCESS CHOICE MEDICARE [employer] [place] [employer] [place] [address] Advance Directives For more information, please contact: [phone] * Full Code (Latest Code Status on File) Date Activated Date Inactivated Comments 09/01/2023 4:19 PM 09/03/2023 4:38 PM Care Teams Watermelon Inspector Relationship Specialty Start Date End Date Jamarcus Varner MD PCP - General Family Medicine 11/10/18 Mata Whelan MD Consulting Physician General Surgery 09/03/23
--- OUTSIDE RECORDS SUMMARY | 2025-01-09 14:30 | XMS_ITS | Clinical Summary ---
Author Organization [facility] Address [address] [place] [address] Care Team Providers Care Bag Adjuster Name Role Phone Jamarcus Varner MD Primary Care Provider [phone]- [phone] Social History Tobacco Use Types Packs/Day Years [...] age to complete this topic Insurance MEDICARE [facility] Care Teams Bag Adjuster Relationship Specialty Start Date End Date Jamarcus Varner MD [address] [facility] [address] [address] PCP - General FAMILY PRACTICE 05/12/23
[2025-01-09 15:26] LABS: Amylase 71 U/L (30-110)
== END 2025-01-09 14:24 | disposition home or self-care (01) ==
LOC: ANHSURGERY 14:27
PROVIDERS: PCP Family Medicine; Visit Provider Surgery
DX: K81.0 Acute cholecystitis (principal); E78.5 Hyperlipidemia, unspecified; I10 Essential (primary) hypertension
CPT/HCPCS: 36415; 82150; 93005

== ENCOUNTER 2025-02-01 01:59 | Day surgery (SDC) | payer MEDICARE, OTHER, SELFPAY ==
[2025-01-09 11:19] VITALS: BMI 30.2
--- NOTE | 2025-01-09 11:20 | PC.NURSE ---
Report to the Outpatient Waiting Room, entrance under the green pavilion located off [facility], at time _0800_ on date _[id number]_. Planned Procedure Time: _1000_.? Time changes happen often and if your time is changed the preop area will call you the afternoon before. - You and your visitor will be asked to self-screen and do not enter if you have any COVID symptoms. Please call surgeon if you need to reschedule. - A mask is optional within the hospital at this time. Patients may have clear liquids (water, carbonated beverages, clear teas, apple juice) until 3 hours prior to surgery with a maximum of 20 ounces. - No food from midnight until time of surgery and no smoking, or chewing tobacco (or any form of nicotine). No chewing gum, candy or mints. Take only the following medications with a SIP of water on the morning of surgery: ___If needed may use Zofran and or Compazine.____ DO NOT STOP ANY OF YOUR OTHER PRESCRIPTION MEDICATIONS PRIOR TO SURGERY EXCEPT THE FOLLOWING Hold all vitamins and supplements for 3 days per anesthesiologist. Medications to discontinue per physician Date to take last dose Please no make-up, nail irish, hairspray, perfume, deodorant, or body powder the day of surgery.? No jewelry (including any body piercings) or valuables the day of surgery, leave them at home.? Please take a shower or bath the night before, or the morning of, surgery with an antibacterial soap.? Wear comfortable, loose fitting clothing.? - Jewelry must be removed prior to entering the operating room.? Rings and piercings that are not removed may be cut off. - The hospital will not accept responsibility for valuables.? - Please leave all valuables, including medications, at home the day of surgery. If you are going home after surgery, a licensed local truck driver must drive you home.? - NO public transportation without another adult if you receive anesthesia. - We recommend that an adult stay with you for 24 hours following discharge. - We also recommend that you do not drive, make important decision, drink alcoholic beverages, or take any drugs that were not prescribed by your health care provider for at least 24 hours after your discharge time. Follow any additional instructions given to you from your surgeon. Telephone instructions given to __Mark___and asked if any additional questions and then verbalized understanding. Patient advised to call surgeon office or pre surgery nurse liaison [phone] if any additional questions.
--- NOTE | 2025-01-19 15:19 | PC.NURSE ---
Report to the Outpatient Waiting Room, entrance under the green pavilion located off [facility], at time __11:15AM___ on date __02/01/25___. Planned Procedure Time: ___1:15PM ___.? Time changes happen often and if your time is changed the preop area will call you the afternoon before. - You and your visitor will be asked to self-screen and do not enter if you have any COVID symptoms. Please call surgeon if you need to reschedule. - A mask is optional within the hospital at this time. Patients may have clear liquids (water, carbonated beverages, clear teas, apple juice) until 3 hours prior to surgery (10:15AM) with a maximum of 20 ounces. - No food from midnight until time of surgery and no smoking, or chewing tobacco (or any form of nicotine). No chewing gum, candy or mints. Take only the following medications with a SIP of water on the morning of surgery: ZOFRAN AND/OR COMPAZINE NEEDED DO NOT STOP ANY OF YOUR OTHER PRESCRIPTION MEDICATIONS PRIOR TO SURGERY EXCEPT THE FOLLOWING Hold all vitamins and supplements for 3 days per anesthesiologist.LAST DOSE 01/28/25 Please no make-up, nail paraguayan, hairspray, perfume, deodorant, or body powder the day of surgery.? No jewelry (including any body piercings) or valuables the day of surgery, leave them at home.? Please take a shower or bath the night before, or the morning of, surgery with an antibacterial soap.? Wear comfortable, loose fitting clothing.? - Jewelry must be removed prior to entering the operating room.? Rings and piercings that are not removed may be cut off. - The hospital will not accept responsibility for valuables.? - Please leave all valuables, including medications, at home the day of surgery. If you are going home after surgery, a licensed pack train driver must drive you home.? - NO public transportation without another adult if you receive anesthesia. - We recommend that an adult stay with you for 24 hours following discharge. - We also recommend that you do not drive, make important decision, drink alcoholic beverages, or take any drugs that were not prescribed by your health care provider for at least 24 hours after your discharge time. Follow any additional instructions given to you from your surgeon. Telephone instructions given to ____PATIENT and asked if any additional questions and then verbalized understanding. Patient advised to call surgeon office or pre surgery nurse liaison [phone] if any additional questions.
[2025-02-01] VITALS (10 sets, daily range): BP systolic 102–167; BP diastolic 52–85; PULSE 54–67; RESP 12–18; TEMP 36.3–36.4; O2SAT 95–99
--- OUTSIDE RECORDS SUMMARY | 2025-02-01 02:06 | XMS_ITS | Clinical Summary ---
Author Organization [facility] Address [address] [place] [address] Care Team Providers Care Fire Apparatus Sprinkler Inspector Name Role Phone Jamarcus Varner MD Primary Care Provider [phone] [phone] Mata Whelan MD Unavailable [phone] Allergies Active Allergy Reactions Criticality Noted Date Comments Metoclopramide Anxiety Low 04/27/2019 Medications traZODone (DESYREL) 100 mg tabletIndicatio ns:insomnia associated with depression Take 1 tablet (100 mg total) by mouth nightly as needed Active telmisartan (MICARDIS) 80 mg tabletIndicatio ns:hypertension Take 1 tablet (80 mg total) by mouth nightly Active magnesium oxide 400 mg magnesium capsuleIndicati ons:supplement Take 400 mg by mouth drill runner before breakfast Active multivitamin capsuleIndicati ons:Vitamin Deficiency Prevention Take 1 capsule by mouth drill runner before breakfast Active HERBAL DRUGS ORALIndications :supplement [...] by your insurance plan, you may purchase LabNow zbqh-fax-irwqvic. 355 mL 09/03/19 24 Active HYDROcodone-korey taminophen (NORCO) 5-325 mg per tabletIndicatio ns:Pain Take 1-2 tablets by mouth every 4 (four) hours as needed for pain 25 tablet 09/03/19 24 Active polyethylene glycol (MIRALAX) 17 gram/dose bulk powder Take 17 g by mouth daily As needed for constipation or if no bowel movement for over 1 day. May buy oprp-vcu-ydfuybf if inadequate coverage by insurance plan. Take with 16 oz of additional water minimum. 238 g 2 09/03/19 24 Active ondansetron (ZOFRAN) 4 mg tabletIndicatio ns:Prevention of Post-Operative Nausea and Vomiting Take 1-2 tablets (4-8 mg total) by mouth every 6 (six) hours as needed for nausea or vomiting 40 tablet 3 12/23/19 25 Active prochlorperazin e (COMPAZINE) 10 mg tabletIndicatio ns:Nausea and Vomiting Take 1 tablet (10 mg total) by mouth every 6 (six) hours as needed for nausea or vomiting 30 tablet 3 12/23/19 25 Active Active Problems Problem Noted Date Diagnosed [...] (03/30/2019): Added automatically from request for surgery [id number] Hallux valgus of left foot 03/30/2019 Overview (03/30/2019): Added automatically from request for surgery [id number] Dislocation of MTP joint of left lesser toe(s), init 03/30/2019 Overview (03/30/2019): Added automatically from request for surgery [id number] Encounters Date Type Department Care Team Description 12/22/2024 Orders Only [facility] General & Laparoscopic Surgery [address] [place] [address] Kylie Cruz, ENEDINA Paraesophageal hernia [...] on file 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 Gender Identity Not on file Sexual Orientation [...] Pneumococcal vaccine 65+ (2 of 2 - PCV20 or PCV21) 02/22/2020 02/21/2019 Abdominal Aortic Aneurysm (A AA) Screen 2023 Well Visit 65+ 2023 Covid-19 Vaccine ( - season) 2024 04/13/2021, 08/14/2020, 07/12/2020 Fall Risk Assessment 09/02/2024 09/03/2023 Influenza Vaccine (#1) 2025 03/15/2023 DTaP/Tdap/Td Vaccine (3 - Td or Tdap) 03/27/2030, 12/02/2019 Medical Devices Implanted Type Area Offal Roller Device Identifier Shelf Expiration Date Model / Serial / Lot Davol Inc/C R Bard Phasix Sepra 4x4in Monofilament Resorbable Square Mesh Surgical [id number] - [id number] Implanted:Qty: 1 on 09/01/2023 by Mata Whelan MD at [facility] Mesh N/A: Esophagus [employer] Inc/C R Bard 05/12/2025 [id number] / / [id number] [employer] [id number] Wilfredo .062in 9in 1 Trocar Smooth Wire Fixation - S0 - [id number] Implanted:Qty: 1 on 05/24/2019 by Diana Thomson MD at [facility] Wire Left: Foot [employer] [id number] / 0 / Screw Bone 3mm 32mm Prostep Cydney Ti Aluminum Vanadium F/T - [id number] Implanted:Qty: 1 on 07/12/2021 by Oli Navarrete MD at [facility] Right: First Toe [employer] 09/27/2028 [id number] / / [employer] 1600-962tns Wilfredo .062in 9in Style 1 Wire Fixation Stainless Steel - [id number] Implanted:Qty: 4 on 07/12/2021 by Oli Navarrete MD at [facility] [place] Right: First Toe [employer] [id number] S / / Description:TOES 2-5 Explanted Type Area Offal Roller Device Identifier Shelf Expiration Date Model / Serial / Lot [employer] [id number] Wilfredo .062in 9in 1 Trocar Smooth Wire Fixation - [id number] Explanted:Qty: 1 on 05/24/2019 by Diana Thomson MD at [facility] Wire Left: Foot [employer] [id number] / / Description:0.45 provisional fixation [employer] [id number] Wilfredo .045in 9in 2 Trocar Style 2 End Orthopedic Wire - S0 - [id number] Explanted:Qty: 4 on 05/24/2019 by Diana Thomson MD at [facility] Wire Left: Foot [employer] [id number] / 0 / Wire Fxatn .9mm 150mm Wilfredo Trocar Blunt Strl - [id number] Explanted:Qty: 2 on 07/12/2021 at [facility] [place] Right: First Toe [employer] 12/26/2026 [id number] / / Insurance [facility] ACCESS CHOICE MEDICARE [employer] Advance Directives For more information, please contact: [phone] * Full Code (Latest Code Status on File) Date Activated Date Inactivated Comments 09/01/2023 4:19 PM 09/03/2023 4:38 PM Care Teams Fire Apparatus Sprinkler Inspector Relationship Specialty Start Date End Date Jamarcus Varner MD PCP - General Family Medicine 11/10/18 Mata Whelan MD Consulting Physician General Surgery 09/03/23
--- OUTSIDE RECORDS SUMMARY | 2025-02-01 02:06 | XMS_ITS | Clinical Summary ---
Author Organization [facility] Address [address] [place] [address] Care Team Providers Care Distribution Agent Name Role Phone Jamarcus Varner MD Primary Care Provider [phone]- [phone] Social History Tobacco Use Types Packs/Day Years [...] age to complete this topic Insurance [place] [place] [id number] [facility] Care Teams Distribution Agent Relationship Specialty Start Date End Date Jamarcus Varner MD [address] [facility] [address] [address] PCP - General FAMILY PRACTICE 05/12/23
[2025-02-01] MEDS: ACETAMINOPHEN 500 MG TABLET 1000 MG PO (10:33)
[2025-02-01] MEDS: LACTATED RINGERS 1,000 ML 30 ML IV CONT ×2 (10:39→13:35)
[2025-02-01] MEDS: KETOROLAC 15 MG/ML VIAL (*BKC) IV PUSH (10:42)
--- NOTE | 2025-02-01 11:08 | WPDANESEPPF ---
Anes - Initial Pre Proc Eval Procedure: Operation Date: 02/01/25 12:00 Proposed Procedures p Laparoscopic Cholecystectomy - Linda Sears MD Date/Time: 02/01/25 11:08 Surgeon: Linda Sears MD Pre Op Diagnosis: Acute Cholecystitis Patient Data Age: 64 Gender: M Height: 1.93 m Weight: 112.7 kg Allergies Allergy/AdvReac Type Severity Reaction Status Date / Time amlodipine Allergy Severe Swelling Verified 02/01/25 11:08 metoclopramide AdvReac Intermediate Anxiety Verified 02/01/25 11:08 Home Medications ?Medication ?Instructions ?Recorded ?Confirmed ?Type CPAP #1 ea 05/11/23 01/09/25 Rx omeprazole 40 mg capsule,delayed 40 mg PO DAILY 07/01/23 01/09/25 History release ondansetron 4 mg disintegrating 4 mg PO Q8H 04/28/24 01/09/25 History tablet telmisartan 80 mg tablet 80 mg PO HS 12/19/24 01/09/25 History trazodone 100 mg tablet 100 mg PO HS 12/19/24 01/09/25 History magnesium glycinate 100 mg PO HS 01/09/25 01/19/25 History prochlorperazine maleate 10 mg 10 mg PO Q8H PRN nausea and 01/09/25 01/09/25 History tablet vomiting Patient hx anesthesia problems: none Family hx anesthesia problems: none Results Review: All pre-operative results and documents have been reviewed as part of the pre-operative evaluation. [facility] Past Medical History Medical History (Updated 01/03/25 @ 13:52 by Ariane Calzada) Hiatal hernia Eosinophilic esophagitis Malignant melanoma Chronic sinusitis, unspecified Alcoholism with alcohol dependence Calhoun esophagus Iron deficiency anemia Prediabetes Adjustment disorder with anxious mood Obesity (BMI 30.0-34.9) Colon polyps Hammertoe of left foot Essential (primary) hypertension Moderate persistent reactive airway disease with wheezing without complication Obstructive sleep apnea Surgical History Surgical History (Updated 01/31/25 @ 14:39 by Pradip Rand DO) History of Aviva fundoplication Hx laparoscopic cholecystectomy 2024 History of colonoscopy with polypectomy S/P repair of paraesophageal hernia Robotic assisted laparoscopic paraesophageal hernia repair H/O sinus surgery History of bunionectomy of left great toe Family History Family History Father Patient's father is Family history of cardiovascular disease Family history of lung cancer Family history of congestive heart failure Mother Patient's mother is Family history of malignant neoplasm of esophagus Sibling Patient's brother is Family history of malignant neoplasm of male breast Other Family history of alcoholism Hypertension No family history of malignant neoplasm Social History Social History Smoking packs per day: 1 Smoking cigarettes per day: 20.0 Years smoked: 15 Smoking pack-years: 15.00 Smoking status: Former smoker Tobacco type: cigarettes Second hand tobacco smoke exposure: No Smoking end date: 01/09/05 Alcohol intake: never Drinks per week: 21 Substance use: never Substance use type: does not use Lack of Transportation: No Lack of Food: Never True Current Housing: I Have Housing Concerned About Future Housing: No Difficulty Paying Gas/Electric Bills: No Difficulty Paying for Meds: No Currently Unemployed: No Education: Master's Degree or Higher Difficulty w/ Childcare or Family Care: No Living arrangements: with family Additional living arrangements comments: He lives with his . A.m. 1 daughter. He used to drink 20 alcoholic beverages a week but stopped drinking alcohol in 2022 when he had is Aviva fundoplication. He used to smoke a pack of cigarettes per day for 20 years. He quit smoking around age 38. 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 Gender identity (if verbalized by the patient): Male Spiritual care concerns: No Anes - Eval Final PreProcedure Day of Procedure 02/01/25 11:08 Patient weight: obese Heart: regular rate and rhythm Lungs: clear to auscultation Airway: Mallampati scale class II Neurological: alert and oriented Last oral intake: >/= 8 hours ASA classification: III Emergent: no Anesthetic plan: proceed Anesthesia type and monitoring: general ETT and standard monitoring Results Review: All pre-operative results and documents have been reviewed as part of the pre-operative evaluation. Informed Consent: The patient's anesthetic plan and its attendant risks and benefits were discussed with the patient/family/POA. Questions were solicited and answers provided to the satisfaction of the patient/family/POA.
--- NOTE | 2025-02-01 11:10 | WPDHPUPDATE1 ---
History and Physical Update Update Date/Time: 02/01/25 11:10 History and Physical has been reviewed, including an updated exam of the patient. There are NO changes in the patient's condition. Risks, benefits, and alternatives have been discussed and questions answered. Patient agrees to proceed with procedure.
[2025-02-01] MEDS: ceFAZolin 2 GM in SODIUM CHLORIDE 0.9% IV 50 ML 100 ML IVPB (11:50)
[2025-02-01] MEDS: BUPIVACAINE/EPINEPHRINE 0.5% 50 ML VIAL 30 ML INFILTRATE (11:50)
--- NOTE | 2025-02-01 12:32 | S_PTH ---
PATIENT: Toni Mazariegos LOC: [facility] U#:[id number] AGE/SX: 64/M ROOM: RE02/01/[address]: Linda Sears MD : 1960 BED: DIS: 02/01/2025 SPEC #: [id number] RECD: 02/01/25 14:34 STATUS: MART REQ #: [id number] EBONY: 02/01/25 12:[address]: Linda Sears DEPT: [facility] Surgical RECD BY: Jacquelyn Jaimes ENTERED: 02/01/25 14:34 SP TYPE: Surgical OTHR DR: Jamarcus Varner MD Tissues: A - Gallbladder Procedures: Hematoxylin and Eosin Stain Gross and Microscopic Level 3
--- NOTE | 2025-02-01 13:32 | P.OP_ITS ---
Procedure Note - Detailed Date of Procedure 02/01/25 Pre-op Diagnosis Acute Cholecystitis Post-op Diagnosis Same Procedure Performed Laparoscopic cholecystectomy, lysis of adhesions Surgeon Linda Sears MD Anesthesia General Indications 64-year-old male presenting with acute cholecystitis, cholelithiasis. Patient initially treated conservatively with antibiotics and now here for interval cholecystectomy. Findings Severe cholecystitis, cholelithiasis Description of Procedure The patient was taken to the operating room placed in the supine position. After adequate induction of general anesthesia, the patient was prepped and draped in normal sterile fashion. A time-out was then performed to verify the patient's identity as well as the procedure being performed. I then made a 5 mm incision in the infraumbilical region. Through this, a Veress needle was placed into the peritoneal cavity and CO2 gas was then insufflated. After adequate pneumoperitoneum was achieved, the Veress needle was removed and a 5 mm optiview trocar was placed through this incision under direct visualization. I then placed the laparoscope through this trocar site and under direct visualization placed a further 12 mm subxiphoid port as well as 2 additional 5 mm ports in the right upper abdomen. There was an inflammatory mass in the right upper quadrant. Upon careful examination, it was noted to be the gallbladder caked with omental adhesions. An extensive lysis of adhesions was then done to allow visualization of the gallbladder. This lysis of adhesions was done both sharply and bluntly with the Bovie cautery. The gallbladder was then identified and was noted to be severely inflamed, distended, and full of gallstones. Given the severe inflammation, the gallbladder was decompressed with an ovarian needle. Hydrops cholecystitis was noted at this point. I was able to place a grasper at the dome of the gallbladder and this was retracted anterior and cephalad up over the liver. A 2nd retractor was then placed at the infundibulum and retracted laterally, this allowed visualization of the triangle of Calot. I then was able to visualize the cystic duct in its entirety from its proximal insertion into the gallbladder, to its distal junction with the common hepatic/common bile duct junction. At this point, I carefully skeletonized the proximal cystic duct with the [place] dissector. I then clipped and transected the proximal cystic duct. Next I visualized the cystic artery. Again the artery was skeletonized, clipped, and transected. I then used the Bovie cautery to take down the per itoneal attachments of the gallbladder off the liver bed. This was difficult given the amount of inflammation in the posterior space. The posterior gallbladder wall was noted to be very friable indicative of the previously noted necrosis on imaging. Once the gallbladder specimen was completely detached, an endo-pouch was placed through the 12 mm port site. I then placed the gallbladder specimen into the Endo pouch and removed the endo-pouch from the 12 mm port site. Of note, the 12 mm incision had to be enlarged to allow extraction of the gallbladder specimen. The specimen will now be sent to pathology for further review. I then copiously irrigated the right upper quadrant. Some mild oozing was noted in the liver bed and this was controlled with the bovie cautery. Hemostasis was noted in the liver bed, the clips were noted to be in good position on both the cystic duct stump and the cystic artery stump. No other pathology was noted in the right upper quadrant. I then moved the laparoscope to the subxiphoid port. No iatrogenic injury or other pathology was noted in the lower abdomen. I then closed the 12 mm trocar site under direct visualization using the Nazario cone and 0 Vicryl suture. At this point, the abdomen was desufflated and all ports removed. All port sites were then closed with 4.O Monocryl subcuticular sutures. Dermabond was placed on each incision. The patient tolerated the procedure well, was extubated in the operating room postoperative and will be transferred to the recovery room in stable condition. Please note that given the amount of inflammation and adhesions that this cholecystectomy took approximately 2 times that of an average cholecystectomy. This is also reflected in the slightly increased blood loss. Estimated Blood Loss 40 Drains No Packing No Pathology Yes Complications No immediate complications Condition Stable Disposition PACU [facility] Billing Surgery - Charge Forward: Surgery Billing
[2025-02-01] MEDS: ONDANSETRON INJ 4 MG/2 ML VIAL IV PUSH (14:09)
== END 2025-02-01 16:13 | disposition home or self-care (01) ==
PROVIDERS: PCP Family Medicine; Visit Provider Surgery
PROC: 0FT44ZZ Resection of Gallbladder, Percutaneous Endoscopic Approach (ICD-10-PCS; CPT 47562; principal; 2025-02-01 12:00)
DX: K80.10 Calculus of gallbladder with chronic cholecystitis without obstruction (principal); L92.3 Foreign body granuloma of the skin and subcutaneous tissue; K66.0 Peritoneal adhesions (postprocedural) (postinfection); I10 Essential (primary) hypertension; K21.9 Gastro-esophageal reflux disease without esophagitis; D50.9 Iron deficiency anemia, unspecified; R73.03 Prediabetes; G47.33 Obstructive sleep apnea (adult) (pediatric); J32.9 Chronic sinusitis, unspecified; F43.22 Adjustment disorder with anxiety; E66.9 Obesity, unspecified; Z68.30 Body mass index [BMI] 30.0-30.9, adult; Z99.89 Dependence on other enabling machines and devices; Z98.890 Other specified postprocedural states; Z90.49 Acquired absence of other specified parts of digestive tract; Z86.0100 Personal history of colon polyps, unspecified; Z87.891 Personal history of nicotine dependence; Z85.820 Personal history of malignant melanoma of skin; Z87.19 Personal history of other diseases of the digestive system; Z80.3 Family history of malignant neoplasm of breast; Z80.0 Family history of malignant neoplasm of digestive organs; Z80.1 Family history of malignant neoplasm of trachea, bronchus and lung; Z82.49 Family history of ischemic heart disease and other diseases of the circulatory system
CPT/HCPCS: 47562; 88304; J0690; A9270; J1100; J1200; J1885; J2003; J2405; J2704; J3010; J7120

== ENCOUNTER 2025-04-20 00:09 | Day surgery (SDC) | payer MEDICARE, OTHER, SELFPAY ==
[2025-04-18 10:11] VITALS: BMI 31.0
[2025-04-20 11:23] VITALS: BP 154/86; PULSE 75; RESP 20; TEMP 36.5; O2SAT 75
[2025-04-20 11:24] VITALS: BMI 31.1
[2025-04-20] MEDS: SIMETHICONE ORAL SUSPENSION 20 MG/0.3 ML 30 ML BOTTLE 1.8 ML PO (11:34)
[2025-04-20] MEDS: LACTATED RINGERS 1,000 ML 150 ML IV CONT (11:34)
--- NOTE | 2025-04-20 11:38 | WPDANESEPPF ---
Anes - Initial Pre Proc Eval Procedure: Operation Date: 04/20/25 12:30 Proposed Procedures p EGD & Screening Colonoscopy - Valdemar Sotelo MD Date/Time: 04/20/25 11:38 Surgeon: Valdemar Sotelo MD Pre Op Diagnosis: GERD, HX OF COLON POLYPS Patient Data Age: 65 Gender: M Height: 1.93 m Weight: 116 kg Last Vital Signs Temp 36.5 C 04/20/25 11:23 Pulse 75 04/20/25 11:23 Resp 20 04/20/25 11:23 BP 154/86 H 04/20/25 11:23 Pulse Ox 75 L 04/20/25 11:23 O2 Del Method Room Air 04/20/25 11:23 Allergies Allergy/AdvReac Type Severity Reaction Status Date / Time amlodipine Allergy Severe Swelling Verified 04/20/25 11:22 metoclopramide AdvReac Intermediate Anxiety Verified 04/20/25 11:22 Home Medications ?Medication ?Instructions ?Recorded ?Confirmed ?Type CPAP #1 ea 05/11/23 04/18/25 Rx omeprazole 40 mg capsule,delayed 40 mg PO DAILY 07/01/23 04/20/25 History release ondansetron 4 mg disintegrating 4 mg PO Q8H PRN nausea and vomiting 04/28/24 04/20/25 History tablet telmisartan 80 mg tablet 80 mg PO HS 12/19/24 04/20/25 History trazodone 100 mg tablet 100 mg PO HS 12/19/24 04/20/25 History magnesium glycinate 100 mg PO HS 01/09/25 04/20/25 History prochlorperazine maleate 10 mg 10 mg PO Q8H PRN nausea and 01/09/25 04/20/25 History tablet vomiting hydrocodone 5 mg-acetaminophen 325 1 tablet PO Q6H PRN pain #20 tabs 02/01/25 04/20/25 Rx mg tablet Patient hx anesthesia problems: none Family hx anesthesia problems: none Results Review: All pre-operative results and documents have been reviewed as part of the pre-operative evaluation. [facility] Past Medical History Medical History Hiatal hernia Eosinophilic esophagitis Malignant melanoma Chronic sinusitis, unspecified Alcoholism with alcohol dependence Calhoun esophagus Iron deficiency anemia Prediabetes Adjustment disorder with anxious mood Obesity (BMI 30.0-34.9) Colon polyps Hammertoe of left foot Essential (primary) hypertension Moderate persistent reactive airway disease with wheezing without complication Obstructive sleep apnea Surgical History Surgical History History of Aviva fundoplication Hx laparoscopic cholecystectomy 2024 History of colonoscopy with polypectomy S/P repair of paraesophageal hernia Robotic assisted laparoscopic paraesophageal hernia repair H/O sinus surgery History of bunionectomy of left great toe Family History Family History Father Patient's father is Family history of cardiovascular disease Family history of lung cancer Family history of congestive heart failure Mother Patient's mother is Family history of malignant neoplasm of esophagus Sibling Patient's brother is Family history of malignant neoplasm of male breast Other Family history of alcoholism Hypertension No family history of malignant neoplasm Social History Social History Smoking packs per day: 1 Smoking cigarettes per day: 20.0 Years smoked: 15 Smoking pack-years: 15.00 Smoking status: Former smoker Tobacco type: cigarettes Second hand tobacco smoke exposure: No Smoking end date: 01/09/05 Alcohol intake: never Drinks per week: 21 Substance use: never Substance use type: does not use Do You Feel Safe in your Home?: No Lack of Transportation: No Lack of Food: Never True Current Housing: I Have Housing Concerned About Future Housing: No Difficulty Paying Gas/Electric Bills: No Difficulty Paying for Meds: No Currently Unemployed: No Education: Master's Degree or Higher Difficulty w/ Childcare or Family Care: No Living arrangements: with family Additional living arrangements comments: He lives with his . A.m. 1 daughter. He used to drink 20 alcoholic beverages a week but stopped drinking alcohol in 2022 when he had is Aviva fundoplication. He used to smoke a pack of cigarettes per day for 20 years. He quit smoking around age 38. 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 Gender identity (if verbalized by the patient): Male Spiritual care concerns: No Anes - Eval Final PreProcedure Day of Procedure 04/20/25 11:38 Patient weight: obese Heart: regular rate and rhythm Lungs: clear to auscultation Airway: Mallampati scale class II Neurological: alert and oriented Last oral intake: >/= 8 hours ASA classification: III Emergent: no Anesthetic plan: proceed Anesthesia type and monitoring: general GIVS and standard monitoring Results Review: All pre-operative results and documents have been reviewed as part of the pre-operative evaluation. Informed Consent: The patient's anesthetic plan and its attendant risks and benefits were discussed with the patient/family/POA. Questions were solicited and answers provided to the satisfaction of the patient/family/POA.
--- NOTE | 2025-04-20 12:10 | PM.IMHP ---
H&P: HPI History of Present Illness Date/Time: 04/20/25 12:10 Chief Complaint: History of Calhoun's esophagus-history of colon polyps Narrative: The patient underwent a Aviva fundoplication in 2022. He has a diagnosis of Calhoun's esophagus and a family history of esophageal cancer in his mother. He also has a history of colonic polyps and is due for his surveillance colonoscopy. He is now scheduled for EGD and colonoscopy Review of Systems Review of Systems: All systems reviewed & are unremarkable except as noted in HPI and below PMFSH Past Medical History Medical History Hiatal hernia Eosinophilic esophagitis Malignant melanoma Chronic sinusitis, unspecified Alcoholism with alcohol dependence Calhoun esophagus Iron deficiency anemia Prediabetes Adjustment disorder with anxious mood Obesity (BMI 30.0-34.9) Colon polyps Hammertoe of left foot Essential (primary) hypertension Moderate persistent reactive airway disease with wheezing without complication Obstructive sleep apnea Surgical History Surgical History History of Aviva fundoplication Hx laparoscopic cholecystectomy 2024 History of colonoscopy with polypectomy S/P repair of paraesophageal hernia Robotic assisted laparoscopic paraesophageal hernia repair H/O sinus surgery History of bunionectomy of left great toe Family History Family History Father Patient's father is Family history of cardiovascular disease Family history of lung cancer Family history of congestive heart failure Mother Patient's mother is Family history of malignant neoplasm of esophagus Sibling Patient's brother is Family history of malignant neoplasm of male breast Other Family history of alcoholism Hypertension No family history of malignant neoplasm Social History Social History Smoking packs per day: 1 Smoking cigarettes per day: 20.0 Years smoked: 15 Smoking pack-years: 15.00 Smoking status: Former smoker Tobacco type: cigarettes Second hand tobacco smoke exposure: No Smoking end date: 01/09/05 Alcohol intake: never Drinks per week: 21 Substance use: never Substance use type: does not use Do You Feel Safe in your Home?: No Lack of Transportation: No Lack of Food: Never True Current Housing: I Have Housing Concerned About Future Housing: No Difficulty Paying Gas/Electric Bills: No Difficulty Paying for Meds: No Currently Unemployed: No Education: Master's Degree or Higher Difficulty w/ Childcare or Family Care: No Living arrangements: with family Additional living arrangements comments: He lives with his . A.m. 1 daughter. He used to drink 20 alcoholic beverages a week but stopped drinking alcohol in 2022 when he had is Aviva fundoplication. He used to smoke a pack of cigarettes per day for 20 years. He quit smoking around age 38. 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 Gender identity (if verbalized by the patient): Male Spiritual care concerns: No Meds Home Medications and Allergies Home Medications ?Medication ?Instructions ?Recorded ?Confirmed ?Type CPAP #1 ea 05/11/23 04/18/25 Rx omeprazole 40 mg capsule,delayed 40 mg PO DAILY 07/01/23 04/20/25 History release ondansetron 4 mg disintegrating 4 mg PO Q8H PRN nausea and vomiting 04/28/24 04/20/25 History tablet telmisartan 80 mg tablet 80 mg PO HS 12/19/24 04/20/25 History trazodone 100 mg tablet 100 mg PO HS 12/19/24 04/20/25 History magnesium glycinate 100 mg PO HS 01/09/25 04/20/25 History prochlorperazine maleate 10 mg 10 mg PO Q8H PRN nausea and 01/09/25 04/20/25 History tablet vomiting hydrocodone 5 mg-acetaminophen 325 1 tablet PO Q6H PRN pain #20 tabs 02/01/25 04/20/25 Rx mg tablet Allergies Allergy/AdvReac Type Severity Reaction Status Date / Time amlodipine Allergy Severe Swelling Verified 04/20/25 11:22 metoclopramide AdvReac Intermediate Anxiety Verified 04/20/25 11:22 Vital Signs Vital Signs - 24 hr 04/20/25 11:23 Temperature 97.7 F Pulse Rate 75 Respiratory Rate 20 Blood Pressure 154/86 H Pulse Oximetry 75 L Oxygen Delivery Room Air Exam Const: General: cooperative and healthy appearing Resp: Effort & Inspection: normal respiratory effort and able to speak in complete sentences Auscultation: clear to auscultation bilaterally Cardio: Rate: regular rate Rhythm: regular rhythm GI: Inspection: normal to inspection GI Palp: No No hepatosplenomegaly present Auscultation: normal bowel sounds Rectal Exam: deferred Skin: General skin exam: normal color Psych: Appearance: grossly normal Mental Status: mental status grossly normal Assessment and Plan Assessment and plan (1) GERD (gastroesophageal reflux disease): Code(s): K21.9 - Gastro-esophageal reflux disease without esophagitis Status: Acute Assessment and Plan: The patient is deemed a good candidate for the procedures. Consent signed. Will proceed. (2) History of colonic polyps: Code(s): Z86.0100 - Personal history of colon polyps, unspecified Status: Acute
--- NOTE | 2025-04-20 12:26 | S_PTH ---
PATIENT: Toni Mazariegos LOC: [facility] U#:[id number] AGE/SX: 65/M ROOM: RE04/20/[address]: Valdemar Sotelo MD : 1960 BED: DIS: 04/20/2025 SPEC #: [id number] RECD: 04/20/25 13:33 STATUS: MART REQ #: [id number] EBONY: 04/20/25 12:[address]: Valdemar Sotelo DEPT: [facility] Surgical RECD BY: Jacquelyn Jaimes ENTERED: 04/20/25 13:34 SP TYPE: Surgical OTHR DR: Jamarcus Varner MD Tissues: A - Gastric Biopsy B - Gastric Biopsy C - Esophageal Biopsy D - Esophageal Biopsy E - Colon Polypectomy Procedures: Hematoxylin and Eosin Stain Gross and Microscopic Level 4 H.Pylori
--- NOTE | 2025-04-20 12:29 | SUR.OPER ---
EGD ended at 1222, Colon began at 1228
[2025-04-20] MEDS: SIMETHICONE ORAL SUSPENSION 20 MG/0.3 ML 30 ML BOTTLE 0.6 ML IRRIGATION (12:36)
[2025-04-20 12:48] VITALS: BP 130/82; PULSE 60; RESP 18; O2SAT 98
[2025-04-20 12:58] VITALS: BP 138/64; PULSE 56; RESP 18; O2SAT 98
[2025-04-20 13:08] VITALS: BP 137/65; PULSE 55; RESP 20; O2SAT 98
--- OUTSIDE RECORDS SUMMARY | 2025-04-20 15:56 | XMS_ITS | Clinical Summary ---
Author Organization [facility] Address [address] [place] [address] Care Team Providers Care Call Center Assistant Name Role Phone Jamarcus Varner MD Primary Care Provider [phone] Mata Whelan MD Unavailable [phone] Allergies Active Allergy Reactions Criticality Noted Date Comments Metoclopramide Anxiety Low 04/27/2019 Medications traZODone (DESYREL) 100 mg tabletIndicatio ns:insomnia associated with depression Take 1 tablet (100 mg total) by mouth nightly as needed Active telmisartan (MICARDIS) 80 mg tabletIndicatio ns:hypertension Take 1 tablet (80 mg total) by mouth nightly Active magnesium oxide 400 mg magnesium capsuleIndicati ons:supplement Take 400 mg by mouth ski base trimmer before breakfast Active multivitamin capsuleIndicati ons:Vitamin Deficiency Prevention Take 1 capsule by mouth ski base trimmer before breakfast Active HERBAL DRUGS ORALIndications :supplement [...] by your insurance plan, you may purchase [employer] [id number]. 355 mL 09/03/19 24 Active HYDROcodone-korey taminophen (NORCO) 5-325 mg per tabletIndicatio ns:Pain Take 1-2 tablets by mouth every 4 (four) hours as needed for pain 25 tablet 09/03/19 24 Active polyethylene glycol (MIRALAX) 17 gram/dose bulk powder Take 17 g by mouth daily As needed for constipation or if no bowel movement for over 1 day. May buy [id number] if inadequate coverage by insurance plan. Take [...] (03/30/2019): Added automatically from request for surgery [id number] Hallux valgus of left foot 03/30/2019 Overview (03/30/2019): Added automatically from request for surgery [id number] Dislocation of MTP joint of left lesser toe(s), init 03/30/2019 Overview (03/30/2019): Added automatically from request for surgery [id number] Immunizations Immunization Administration Dates Next Due Influenza, [...] on file Legal Sex Male 1:06 PM [employer]CAR[employer] Gender Identity Not on file Sexual Orientation [...] Cancer Screening-PSA 1958 Hepatitis B Screening 1976 Pneumococcal vaccine 65+ (2 of 2 - PPSV23, PCV20, or PCV21) 04/18/2019 02/21/2019 Zoster Vaccine (2 of 2) 04/20/2019 02/23/2019 Abdominal Aortic Aneurysm (A AA) Screen 2023 Well Visit 65+ 2023 Fall Risk Assessment 09/02/2024 09/03/2023 Covid-19 Vaccine (4 - season) 2025 04/13/2021, 08/14/2020, 07/12/2020 DTaP/Tdap/Td Vaccine (3 - Td or Tdap) 03/27/2030, 12/02/2019 Influenza Vaccine Completed 04/09/2025, 03/15/2023 Medical Devices Implanted Type Area Bobbin Disker Device Identifier Shelf Expiration Date Model / Serial / Lot [employer] Inc/C R Bard Phasix Sepra 4x4in Monofilament Resorbable Square Mesh Surgical [id number] - [id number] Implanted:Qty: 1 on 09/01/2023 by Mata Whelan MD at [facility] Mesh N/A: Esophagus [employer]/C R Bard 05/12/2025 [id number] / / [id number] [employer] [id number] Wilfredo .062in 9in 1 Trocar Smooth Wire Fixation - S0 - [id number] Implanted:Qty: 1 on 05/24/2019 by Diana Thomson MD at [facility] Left: Foot [employer] [id number] / 0 / Screw Bone 3mm 32mm Prostep Cydney Ti Aluminum Vanadium F/T - [id number] Implanted:Qty: 1 on 07/12/2021 by Oli Navarrete MD at [facility] Right: First Toe [employer] Inc 09/27/2028 [id number] / / [employer] [id number] Wilfrdeo .062in 9in Style 1 Wire Fixation Stainless Steel - [id number] Implanted:Qty: 4 on 07/12/2021 by Oli Navarrete MD at [facility] Right: First Toe [employer] [id number] S / / Description:TOES 2-5 Explanted Type Area Bobbin Disker Device Identifier Shelf Expiration Date Model / Serial / Lot [employer] [id number] Wilfredo .062in 9in 1 Trocar Smooth Wire Fixation - [id number] Explanted:Qty: 1 on 05/24/2019 by Diana Thomson MD at [facility] Wire Left: Foot [employer] [id number] / / Description:0.45 provisional fixation [employer] [id number] Wilfredo .045in 9in 2 Trocar Style 2 End Orthopedic Wire - S0 - [id number] Explanted:Qty: 4 on 05/24/2019 by Diana Thomson MD at [facility] Wire Left: Foot [employer] [id number] / 0 / Wire Fxatn .9mm 150mm Wilfredo Trocar Blunt Strl - [id number] Explanted:Qty: 2 on 07/12/2021 at [facility] Right: First Toe [employer] 12/26/2026 [id number] / / Insurance [facility] [employer] [place] [address] [employer] [place] [employer] [place] Advance Directives For more information, please contact: [phone] * Full Code (Latest Code Status on File) Date Activated Date Inactivated Comments 09/01/2023 4:19 PM 09/03/2023 4:38 PM Care Teams Call Center Assistant Relationship Specialty Start Date End Date Jamarcus Varner MD PCP - General Family Medicine 11/10/18 Mtaa Whelan MD Consulting Physician General Surgery 09/03/23
--- OUTSIDE RECORDS SUMMARY | 2025-04-20 15:56 | XMS_ITS | Clinical Summary ---
Author Organization [facility] Care Team Providers Care Grinder Mill Operator Name Role Phone Unavailable Primary Care [...] (5 0+ years) (2 of 2 - PCV20 or PCV21) 02/22/2020 02/21/2019 Colonoscopy 11/23/2024 11/23/2014 Colorectal Cancer Screening 11/23/2024 Influenza Immunization (#1) 2025 SARS-COV-2 Immunization ( season) 2025 04/13/2021, 08/14/2020, 07/12/2020 Respiratory Syncytial Virus (RSV) Immunization (Adult) (1 [...]
--- OUTSIDE RECORDS SUMMARY | 2025-04-20 15:56 | XMS_ITS | Clinical Summary ---
Author Organization [facility] Address [address] [place] [id number] Care Team Providers Care Newsperson Name Role Phone Jamarcus Varner MD Primary Care Provider [phone] Social History Tobacco Use Types Packs/Day Years [...] Wellness Visit 2023 COVID-19 Vaccine (1 - 2024-2 6 season) 2025 Influenza Adult (#1) 2025 RSV Immunization or 60+ Years (1 - 1-dose 75+ series) 2033 Hepatitis A Vaccines Aged Out No long er eligible based on patient's age to complete this topic Meningococcal B Vaccine Aged Out No l onger eligible based on patient's age to complete this topic Meningococcal Vaccine Aged Out No ashley dontrell eligible based on patient's age to complete this topic RSV Immunizations Under 20 Months Aged Out No longer eligible based on patient's age to complete this topic Insurance MEDICARE [facility] Care Teams Newsperson Relationship Specialty Start Date End Date Jamarcus Varner MD [address] [facility] [address] [address] PCP - General FAMILY PRACTICE 05/12/23
== END 2025-04-20 13:20 | disposition home or self-care (01) ==
PROVIDERS: PCP Family Medicine; Referring Provider Nurse Practitioner Family; Visit Provider Internal Medicine Gastroenterology
PROC: 0DJ08ZZ Inspection of Upper Intestinal Tract, Via Natural or Artificial Opening Endoscopic (ICD-10-PCS; CPT 45378; principal; 2025-04-20 12:30)
DX: Z12.11 Encounter for screening for malignant neoplasm of colon (principal); D12.5 Benign neoplasm of sigmoid colon; K57.30 Diverticulosis of large intestine without perforation or abscess without bleeding; K21.00 Gastro-esophageal reflux disease with esophagitis, without bleeding; K29.50 Unspecified chronic gastritis without bleeding; K22.70 Barrett's esophagus without dysplasia; K29.70 Gastritis, unspecified, without bleeding; D50.9 Iron deficiency anemia, unspecified; R73.03 Prediabetes; I10 Essential (primary) hypertension; J45.40 Moderate persistent asthma, uncomplicated; G47.33 Obstructive sleep apnea (adult) (pediatric); F43.22 Adjustment disorder with anxiety; J32.9 Chronic sinusitis, unspecified; E66.9 Obesity, unspecified; Z68.31 Body mass index [BMI] 31.0-31.9, adult; Z79.891 Long term (current) use of opiate analgesic; Z99.89 Dependence on other enabling machines and devices; Z98.890 Other specified postprocedural states; Z90.49 Acquired absence of other specified parts of digestive tract; Z87.891 Personal history of nicotine dependence; Z87.19 Personal history of other diseases of the digestive system; Z85.820 Personal history of malignant melanoma of skin; Z80.0 Family history of malignant neoplasm of digestive organs; Z80.1 Family history of malignant neoplasm of trachea, bronchus and lung; Z80.3 Family history of malignant neoplasm of breast; Z82.49 Family history of ischemic heart disease and other diseases of the circulatory system
CPT/HCPCS: 43239; 45378; 88305; 88342; J2704; J7120

== ENCOUNTER 2025-05-08 11:00 | Outpatient (CLI) | payer MEDICARE, OTHER, SELFPAY ==
--- NOTE | ~2025-05-08 | XR_ITS ---
EXAMINATION: XR elbow RT min 3V, 05/08/2025 11:19 [employer] HISTORY: Pain in right elbow since thursday, no inj, no surg COMPARISON: No comparisons available. Findings: No acute fracture or malalignment. Moderate to severe tricompartmental degenerative changes Soft tissues unremarkable. Impression: No acute fracture or malalignment. Reviewed, dictated and finalized at location P. [employer] Impression: No acute fracture or malalignment.
== END 2025-05-08 11:01 | disposition home or self-care (01) ==
PROVIDERS: PCP Family Medicine; Visit Provider Student in an Organized Health Care Education/Training Program
DX: M25.521 Pain in right elbow (principal)
CPT/HCPCS: 73080